=== PATIENT | male | born 1980 | race Caucasian/White ===

== ENCOUNTER → 2016-08-23 | Outpatient (REF) | payer OTHER ==
[~2016-08-23] MED LIST: ASPI325T PO; BREO1INH INH; COUM1TAB17 PO; COUM7.5T PO; LOVE0.8I SC; LOVE1INJ SC
[2016-08-23 11:08] LABS: MEAN CORPUSCULAR HEMOGLOBIN 31.6 pg (27.0-33.0); MEAN CORPUSCULAR HGB CONC 34.2 g/dl (32.0-36.5); MEAN CORPUSCULAR VOLUME 92.5 fl (80.0-96.0); RED CELL DISTRIBUTION WIDTH 12.6 % (11.5-14.5); WHITE BLOOD COUNT 5.8 K/mm3 (4.0-10.0)
[2016-08-23 11:45] LABS: ALBUMIN 4.3 GM/DL (3.2-5.2); ALKALINE PHOSPHATASE 63 U/L (45-117); ALT/SGPT 165 U/L (12-78); ANION GAP 9 MEQ/L (8-16); AST/SGOT 95 U/L (15-37); BILIRUBIN,TOTAL 0.6 MG/DL (0.2-1.0); BLOOD UREA NITROGEN 8 MG/DL (7-18); CALCIUM LEVEL 9.1 MG/DL (8.5-10.1); CARBON DIOXIDE LEVEL 28 MEQ/L (21-32); CHLORIDE LEVEL 102 MEQ/L (98-107); CREATININE FOR GFR 1.02 MG/DL (0.70-1.30); GLOMERULAR FILTRATION RATE > 60.0 (>60); GLUCOSE, FASTING 91 MG/DL (70-105); POTASSIUM SERUM 4.5 MEQ/L (3.5-5.1); SODIUM LEVEL 139 MEQ/L (136-145); TOTAL PROTEIN 8.6 GM/DL (6.4-8.2)
== END ==
LOC: M SFHCPLAZ 08:28
PROVIDERS: ATTEND Nurse Practitioner Adult Health
DX: R74.8 Abnormal levels of other serum enzymes (principal); Z79.899 Other long term (current) drug therapy

== ENCOUNTER → 2016-09-14 | Outpatient (REF) | payer OTHER ==
[2016-09-14 10:11] LABS: INR 6.91
== END ==
LOC: M SFHCPLAZ 08:13
PROVIDERS: ATTEND Nurse Practitioner Adult Health
DX: Z79.01 Long term (current) use of anticoagulants (principal)

== ENCOUNTER → 2016-10-20 | Outpatient (CLI) | payer OTHER ==
[2016-10-20 14:25] LABS: INR 4.05
== END ==
LOC: M WUC 11:22
PROVIDERS: ATTEND Nurse Practitioner Adult Health
DX: Z79.01 Long term (current) use of anticoagulants (principal); D68.51 Activated protein C resistance; I82.409 Acute embolism and thrombosis of unspecified deep veins of unspecified lower extremity

== ENCOUNTER → 2016-11-14 | Outpatient (CLI) | payer OTHER ==
[2016-11-14 20:14] LABS: INR 5.48
== END ==
LOC: M WUC 11:14
PROVIDERS: ATTEND Nurse Practitioner Adult Health
DX: I82.409 Acute embolism and thrombosis of unspecified deep veins of unspecified lower extremity (principal)

== ENCOUNTER → 2016-12-12 | Outpatient (REF) | payer OTHER ==
[2016-12-12 16:01] LABS: INR 4.67
== END ==
LOC: M SFHCPLAZ 15:47
PROVIDERS: ATTEND Nurse Practitioner Adult Health
DX: I82.409 Acute embolism and thrombosis of unspecified deep veins of unspecified lower extremity (principal)

== ENCOUNTER → 2017-04-16 | Outpatient (CLI) | payer OTHER ==
[2017-04-16 14:38] LABS: MEAN CORPUSCULAR HEMOGLOBIN 19.8 pg (27.0-33.0); MEAN CORPUSCULAR HGB CONC 28.7 g/dl (32.0-36.5)
[2017-04-16 14:49] LABS: MEAN CORPUSCULAR VOLUME 69.2 fl (80.0-96.0); RED CELL DISTRIBUTION WIDTH 23.3 % (11.5-14.5)
[2017-04-16 15:05] LABS: ALBUMIN 3.7 GM/DL (3.2-5.2); ALKALINE PHOSPHATASE 47 U/L (45-117); ALT/SGPT 70 U/L (12-78); ANION GAP 9 MEQ/L (8-16); AST/SGOT 57 U/L (15-37); BILIRUBIN,TOTAL 0.5 MG/DL (0.2-1.0); BLOOD UREA NITROGEN 8 MG/DL (7-18); CALCIUM LEVEL 8.6 MG/DL (8.5-10.1); CARBON DIOXIDE LEVEL 27 MEQ/L (21-32); CHLORIDE LEVEL 102 MEQ/L (98-107); CHOLESTEROL LEVEL 176 MG/DL (<200); CREATININE FOR GFR 0.83 MG/DL (0.70-1.30); GLOMERULAR FILTRATION RATE > 60.0 (>60); GLUCOSE, FASTING 80 MG/DL (70-105); POTASSIUM SERUM 4.5 MEQ/L (3.5-5.1); SODIUM LEVEL 138 MEQ/L (136-145); TOTAL PROTEIN 7.8 GM/DL (6.4-8.2); TRIGLYCERIDES LEVEL 42 MG/DL (<150)
== END ==
LOC: M WUC 09:27
PROVIDERS: ATTEND Nurse Practitioner Adult Health
DX: K76.0 Fatty (change of) liver, not elsewhere classified (principal); I82.409 Acute embolism and thrombosis of unspecified deep veins of unspecified lower extremity; K21.0 Gastro-esophageal reflux disease with esophagitis

== ENCOUNTER → 2017-05-10 | Outpatient (REF) | payer OTHER ==
[2017-05-10 11:58] LABS: MEAN CORPUSCULAR HGB CONC 29.3 g/dl (32.0-36.5); PLATELET COUNT, AUTOMATED 302 10^3/uL (150-450); WHITE BLOOD COUNT 4.5 10^3/uL (4.0-10.0)
[2017-05-10 12:00] LABS: MEAN CORPUSCULAR VOLUME 71.8 fl (80.0-96.0); RED CELL DISTRIBUTION WIDTH 27.2 % (11.5-14.5)
[2017-05-10 13:40] LABS: INR 7.66
== END ==
LOC: M SFHCPLAZ 07:23
PROVIDERS: ATTEND Nurse Practitioner Adult Health
DX: Z51.81 Encounter for therapeutic drug level monitoring (principal); Z79.01 Long term (current) use of anticoagulants

== ENCOUNTER 2017-06-25 09:21 | Emergency (ER) | payer OTHER ==
[~2017-06-25] VITALS: Ht 180.3 cm; Wt 93.2 kg
[2017-06-25] MEDS ORDERED: VENTAER IN (09:47)
[2017-06-25] MEDS ORDERED: FERR32TA PO (09:47)
[2017-06-25] MEDS ORDERED: OMEP40CA2 PO (09:47)
[2017-06-25] MEDS ORDERED: NORCO, ANEXSIA 5/325MG TABLET (HYDROcodone/ACETAMINOPHEN) PO ONE (11:00)
[2017-06-25] MEDS ORDERED: ACETAMINOPHEN 325 MG TAB As Ordered ONE (11:19)
[2017-06-25 11:25] LABS: BASO % 0.7 % (0.0-1.0); EOS # 0.1 10^3/uL (0.0-0.50); EOS % 0.8 % (0.0-3.0); IMMATURE GRANULOCYTE % 0.2 % (0-0); LYMPH # 1.4 10^3/uL (1.5-4.5); LYMPH % 24.2 % (24.0-44.0); MEAN CORPUSCULAR HGB CONC 31.1 g/dl (32.0-36.5); MEAN CORPUSCULAR VOLUME 80.2 fl (80.0-96.0); MONO # 0.7 10^3/uL (0.0-0.8); MONO % 12.5 % (0.0-5.0); NEUTROPHILS # 3.7 10^3/uL (1.8-7.7); NEUTROPHILS % 61.6 % (36.0-66.0); PLATELET COUNT, AUTOMATED 230 10^3/uL (150-450); RED CELL DISTRIBUTION WIDTH 22.6 % (11.5-14.5); WHITE BLOOD COUNT 5.9 10^3/uL (4.0-10.0)
[2017-06-25] MEDS ORDERED: ACETAMINOPHEN 325 MG TAB PO ONE (11:30)
[2017-06-25 11:50] LABS: ANION GAP 8 MEQ/L (8-16); BLOOD UREA NITROGEN 7 MG/DL (7-18); CALCIUM LEVEL 9.5 MG/DL (8.5-10.1); CARBON DIOXIDE LEVEL 30 MEQ/L (21-32); CHLORIDE LEVEL 99 MEQ/L (98-107); GLOMERULAR FILTRATION RATE > 60.0 (>60); GLUCOSE, FASTING 92 MG/DL (70-105); POTASSIUM SERUM 4.2 MEQ/L (3.5-5.1); SODIUM LEVEL 137 MEQ/L (136-145)
[2017-06-25 11:56] LABS: INR 1.34
--- NOTE | 2017-06-25 12:12 | REP ---
Right lower extremity Doppler venous ultrasound: 06/25/2017. Comparison 10/29/2014. Clinical history: Prior history of DVT. Pain for 3 days. No injury. Right lower calf pain. On anticoagulation. The deep venous system from the groin to the proximal calf was studied in the right lower extremity, compression ultrasound techniques, duplex Doppler interrogation, color imaging and raines-scale scanning reviewed. There is no evidence of DVT in the common femoral and superficial femoral vein of the thigh and groin. However, in the popliteal vein, there is again noted to be some nonocclusive clot as seen in the 2014 exam extending into the tibioperoneal trunk. There is a occlusive clot present. Impression: 1. This is positive ultrasound with evidence for DVT in the right popliteal vein which is nonocclusive, similar to the previous study in 2014. There is now nonocclusive thrombus extending into the tibioperoneal trunk where it is occlusive. This likely represents acute on chronic DVT. Signed by Sd Cabrera MD 06/26/2017 07:19 P
[2017-06-25] MEDS ORDERED: ENOXAPARIN 100MG/1ML SYRINGE (J1650) SC ONE (12:15)
[2017-06-25 12:19] VITALS: BP 147/88
[2017-06-25] MEDS ORDERED: LOVE0.8I SC (12:32)
[2017-06-25] MEDS ORDERED: PERC5TAB12 PO (12:32)
== END 2017-06-25 12:40 | disposition home or self-care (01) ==
LOC: M ED 09:21
DX: I80.221 Phlebitis and thrombophlebitis of right popliteal vein (principal); I80.231 Phlebitis and thrombophlebitis of right tibial vein; D68.51 Activated protein C resistance; Z86.718 Personal history of other venous thrombosis and embolism; J45.909 Unspecified asthma, uncomplicated; Z79.01 Long term (current) use of anticoagulants; Z79.899 Other long term (current) drug therapy
CPT/HCPCS: 36415; 80048; 85025; 85610; 85730; 93971; 96372; 99284; J1650

== ENCOUNTER → 2017-09-26 | Outpatient (CLI) | payer OTHER ==
[2017-09-26 11:33] LABS: INR 2.63; PROTHROMBIN TIME 29.2 SECONDS (12.4-14.5)
== END ==
LOC: M WUC 09:31
DX: I82.409 Acute embolism and thrombosis of unspecified deep veins of unspecified lower extremity (principal); Z79.01 Long term (current) use of anticoagulants
CPT/HCPCS: 85610

== ENCOUNTER → 2018-01-29 | Outpatient (CLI) | payer OTHER ==
[2018-01-29 13:11] LABS: HEMATOCRIT 46.2 % (42.0-52.0); HEMOGLOBIN 15.5 g/dl (13.5-17.5); MEAN CORPUSCULAR HEMOGLOBIN 32.1 pg (27.0-33.0); MEAN CORPUSCULAR HGB CONC 33.5 g/dl (32.0-36.5); MEAN CORPUSCULAR VOLUME 95.7 fl (80.0-96.0); PLATELET COUNT, AUTOMATED 171 10^3/uL (150-450); RED BLOOD COUNT 4.83 10^6/uL (4.30-6.10); RED CELL DISTRIBUTION WIDTH 14.2 % (11.5-14.5); WHITE BLOOD COUNT 4.3 10^3/uL (4.0-10.0)
[2018-01-29 13:28] LABS: ALBUMIN 4.2 GM/DL (3.2-5.2); ALBUMIN/GLOBULIN RATIO 1.11 (1.00-1.93); ALKALINE PHOSPHATASE 59 U/L (45-117); ALT/SGPT 155 U/L (12-78); ANION GAP 7 MEQ/L (8-16); AST/SGOT 104 U/L (7-37); BILIRUBIN,TOTAL 0.3 MG/DL (0.2-1.0); BLOOD UREA NITROGEN 8 MG/DL (7-18); CALCIUM LEVEL 9.1 MG/DL (8.5-10.1); CARBON DIOXIDE LEVEL 30 MEQ/L (21-32); CHLORIDE LEVEL 105 MEQ/L (98-107); CREATININE FOR GFR 0.96 MG/DL (0.70-1.30); GLOMERULAR FILTRATION RATE > 60.0 (>60); GLUCOSE, FASTING 96 MG/DL (70-100); POTASSIUM SERUM 4.4 MEQ/L (3.5-5.1); SODIUM LEVEL 142 MEQ/L (136-145)
== END ==
LOC: M WUC 09:05
DX: R74.8 Abnormal levels of other serum enzymes (principal); D64.9 Anemia, unspecified
CPT/HCPCS: 80053

== ENCOUNTER → 2018-02-20 | Outpatient (CLI) | payer OTHER | LOC: M RAD 08:15 | DX: I82.412 Acute embolism and thrombosis of left femoral vein (principal) | CPT/HCPCS: 93971 ==

== ENCOUNTER 2018-09-23 08:53 | Inpatient (IN) | payer MEDICAID, OTHER ==
[~2018-09-23] VITALS: Ht 180.3 cm; Wt 96.8 kg
[~2018-09-23 08:53] MED LIST changes: +FERR32TA PO; +OMEP40CA2 PO; +PERC5TAB12 PO; +VENTAER INH
[2018-09-23] MEDS ORDERED: FOLIC ACID 1 MG TAB PO SCH (09:00)
[2018-09-23] MEDS ORDERED: THIAMINE 100 MG TAB PO SCH (09:00)
[2018-09-23] MEDS ORDERED: MULTIVITAMINS/MINERALS THERAP 1 TAB PO SCH (09:00)
[2018-09-23] MEDS: MORPHINE 4 MG/ML 1ML VIAL/SYRINGE (J2270) IV PRN ×5 (09:24→22:11)
[2018-09-23 09:26] LABS: BASO # 0.1 10^3/uL (0.0-0.2); BASO % 0.8 % (0.0-1.0); EOS % 0.6 % (0.0-3.0); HEMATOCRIT 35.9 % (42.0-52.0); HEMOGLOBIN 12.1 g/dl (13.5-17.5); LYMPH # 1.4 10^3/uL (1.5-4.5); LYMPH % 21.9 % (24.0-44.0); MEAN CORPUSCULAR HEMOGLOBIN 28.9 pg (27.0-33.0); MEAN CORPUSCULAR HGB CONC 33.7 g/dl (32.0-36.5); MEAN CORPUSCULAR VOLUME 85.9 fl (80.0-96.0); MONO # 0.9 10^3/uL (0.0-0.8); MONO % 14.8 % (0.0-5.0); NEUTROPHILS # 3.9 10^3/uL (1.8-7.7); NEUTROPHILS % 61.6 % (36.0-66.0); PLATELET COUNT, AUTOMATED 172 10^3/uL (150-450); RED BLOOD COUNT 4.18 10^6/uL (4.30-6.10); WHITE BLOOD COUNT 6.3 10^3/uL (4.0-10.0)
[2018-09-23] MEDS ORDERED: ONDANSETRON 4MG/2ML VIAL (J2405) IV ONE (09:30)
[2018-09-23 09:45] LABS: ALBUMIN 3.9 GM/DL (3.2-5.2); ALT/SGPT 181 U/L (12-78); BILIRUBIN,DIRECT 0.3 MG/DL (0.0-0.2); BILIRUBIN,TOTAL 0.6 MG/DL (0.2-1.0); BLOOD UREA NITROGEN 6 MG/DL (7-18); CALCIUM LEVEL 8.9 MG/DL (8.5-10.1); CARBON DIOXIDE LEVEL 24 MEQ/L (21-32); CHLORIDE LEVEL 101 MEQ/L (98-107); CREATININE FOR GFR 0.92 MG/DL (0.70-1.30); GLOMERULAR FILTRATION RATE > 60.0 (>60); GLUCOSE, FASTING 96 MG/DL (70-100); LIPASE 193 U/L (73-393); POTASSIUM SERUM 3.8 MEQ/L (3.5-5.1); SODIUM LEVEL 136 MEQ/L (136-145); TOTAL PROTEIN 8.6 GM/DL (6.4-8.2)
[2018-09-23 09:59] LABS: INR 7.74
[2018-09-23] MEDS ORDERED: ISOVUE-370 76% 100ML VIAL (Q9967) As Ordered ONE (09:59)
[2018-09-23 10:00] LABS: PARTIAL THROMBOPLASTIN TIME 102.1 SECONDS (25.4-37.6)
[2018-09-23 10:01] LABS: PROTHROMBIN TIME 67.5 SECONDS (12.1-14.4)
--- NOTE | 2018-09-23 10:13 | REP ---
Left hip: Two views. History: History of DVT. Findings: AP and frog-leg views of the left hip demonstrate an intact left radha pelvis. Proximal femur is intact. No fracture or subluxation is seen. No erosive changes seen. Impression: Negative left hip radiographs. Electronically Signed by Kailash Jeffrey MD 09/23/2018 12:47 P
--- NOTE | 2018-09-23 10:14 | REP ---
Pelvis: Single AP view. History: History of DVT. Findings: Bony pelvic ring is intact. Mild clothing artifact is seen. Hip joint spaces are preserved. Femoral heads are smooth and rounded. SI joints and sacrum are unremarkable. Impression: Negative AP pelvis view. Electronically Signed by Kailash Jeffrey MD 09/23/2018 12:47 P
--- NOTE | 2018-09-23 10:14 | REP ---
AP chest x-ray: Single view: History: History of DVT. Findings: EKG monitoring electrodes are seen. There is a zone of linear density in the left midlung zone consistent with fibrosis or atelectasis. Lung overton are otherwise clear. Heart size is normal. Mediastinum is not widened. No significant bony abnormality. Impression: Linear plate-like atelectasis versus fibrosis left mid lung zone. Otherwise negative. Electronically Signed by Kailash Jeffrey MD 09/23/2018 12:47 P
--- NOTE | 2018-09-23 10:31 | REP ---
Left lower extremity duplex venous ultrasound: History: Pain. Known prior left lower extremity nonocclusive DVT. Previous findings consistent with chronic DVT February 20, 2018, and June 25, 2017. Findings: On today's examination, there is no evidence of acute deep venous thrombosis. There is some echogenic mural thickening and lack of complete compressibility in the left femoral vein and popliteal vein consistent with chronic DVT. This is unchanged from prior studies. Impression: Changes consistent with chronic venous thrombosis left femoral vein and left popliteal vein, unchanged from prior study. No evidence of acute venous thrombosis in the left lower extremity. Electronically Signed by Kailash Jeffrey MD 09/23/2018 12:48 P
--- NOTE | 2018-09-23 10:48 | REP ---
CT abdomen and pelvis with IV contrast, without bowel contrast: Comparison is the chest CT dated 08/19/2015. There is no retroperitoneal or intraperitoneal hematoma/hemorrhage. The visualized lung overton are unremarkable. There is are chronic grade II compression deformities of the T8 and T9 vertebral bodies, unchanged from 08/19/2015. The hepatic parenchyma is diffusely less dense than the spleen compatible with hepato steatosis. There are no hepatic masses. The gallbladder, pancreas and spleen are unremarkable. The The adrenals and kidneys are unremarkable. There is no perisplenic repair adrenal hematoma. The abdominal aorta is unremarkable. The bowel and mesentery are unremarkable. Pelvis: The appendix is unremarkable. There is no free fluid. The bladder is unremarkable. There is no adenopathy or mass. The pelvic bowel loops are unremarkable. Impression: There is no retroperitoneal hematoma. There is no intraperitoneal hematoma or free fluid. Hepato steatosis. Chronic grade II compression deformities of the T8 and T9 vertebral bodies. There are Electronically Signed by Ben Higuera MD 09/23/2018 10:40 A
[2018-09-23] MEDS ORDERED: NS 1,000 ML IV ONE (11:00)
[2018-09-23] MEDS ORDERED: HYDROMORPHONE HCL 0.5 MG/ 0.5 ML SYRINGE (J1170 PER 1) IV ONE (11:00)
[2018-09-23] MEDS ORDERED: PHYTONADIONE 5 MG TAB PO ONE (11:45)
[2018-09-23] MEDS ORDERED: PROHANCE 279.3MG/ML 15ML VIAL (A9576) As Ordered ONE (12:39)
[2018-09-23] MEDS ORDERED: PROHANCE 279.3MG/ML 5ML VIAL (A9576) As Ordered ONE (12:39)
[2018-09-23] MEDS ORDERED: LORazepam 2 MG/ML VIAL (J2060) IV STA (13:04)
[2018-09-23 13:32] LABS: BASO % 0.5 % (0.0-1.0); EOS % 0.3 % (0.0-3.0); HEMATOCRIT 35.3 % (42.0-52.0); HEMOGLOBIN 11.8 g/dl (13.5-17.5); LYMPH # 1.2 10^3/uL (1.5-4.5); LYMPH % 20.2 % (24.0-44.0); MEAN CORPUSCULAR HEMOGLOBIN 28.8 pg (27.0-33.0); MEAN CORPUSCULAR HGB CONC 33.4 g/dl (32.0-36.5); MEAN CORPUSCULAR VOLUME 86.1 fl (80.0-96.0); MONO # 0.7 10^3/uL (0.0-0.8); MONO % 12.5 % (0.0-5.0); NEUTROPHILS # 3.9 10^3/uL (1.8-7.7); PLATELET COUNT, AUTOMATED 170 10^3/uL (150-450); WHITE BLOOD COUNT 5.8 10^3/uL (4.0-10.0)
--- NOTE | 2018-09-23 13:45 | REP ---
MRI STUDY OF THE LUMBAR SPINE WITHOUT AND WITH IV GADOLINIUM: HISTORY: Radicular pain left leg. Elevated INR. Patient on Coumadin. Comparison is made with today's CT study. TECHNIQUE: Sagittal and axial T1- and T2-weighted scans are acquired in the usual fashion with and without fat saturation. Sequences include spin echo, turbo spin-echo, and STIR imaging sequences. Gadolinium enhancement dose is 18 mL of intravenous ProHance. MRI FINDINGS: Lumbar vertebral body heights are preserved. Alignment is normal. Disc spaces are maintained in the lumbar spine. There is no evidence of intraspinal abnormal fluid collection. Tip of the conus medullaris is normal in position and appearance at T12. No lumbar disc herniation is seen. No abnormal gadolinium enhancement is appreciated. No fracture or collapse is noted. There is no evidence of spondylolysis or spondylolisthesis. IMPRESSION: No abnormal intraspinal hematoma or other fluid collection. Unremarkable MRI study lumbar spine without and with IV gadolinium. Note: During the process of review of the CT study done earlier this date, I feel that the left piriformis muscle is abnormally enlarged and somewhat hyperdense. Similarly, there is a mixed density, partially hyperdense, partially hypodense intramuscularly in the gluteus medius muscle; significantly enlarging this muscle belly consistent with a hematoma. The gluteus medius hematoma measures 4.5 x 10.9 x 8.0 cm in greatest diameter. The left piriformis muscle measures 3.5 cm in greatest thickness where as the right measures 2.4 cm. These findings are compatible with left piriformis and left gluteus medius intramuscular hematoma. Electronically Signed by Kailash Jeffrey MD 09/23/2018 03:18 P
[2018-09-23] MEDS: NS 1,000 ML IV SCH ×2 (14:30→19:54)
[2018-09-23] MEDS ORDERED: LORazepam 2 MG TAB PO PRN (14:30)
[2018-09-23] MEDS ORDERED: WARF-22 PO (14:45)
[2018-09-23] MEDS ORDERED: WARF-21 PO (14:45)
--- NOTE | 2018-09-23 14:59 | HPE ---
DATE OF ADMISSION: 09/23/2018 HISTORY: 37-year-old male with past medical history of asthma, recurrent deep vein thrombosis (DVT) secondary to Factor V Leiden deficiency, who presents to the emergency room with severe left gluteal pain radiating down his left leg. He denies any recent trauma or fall. The patient had a CT done which showed a left gluteal hematoma. His INR also was found to be 7.7. He is on Coumadin. The patient was given 10 mg of vitamin K for INR reversal. The patient was also noted to be withdrawing from alcohol. Apparently he drinks six cans of beer a day, was given 1 mg of Ativan. He is awake, alert and oriented times three at this time. He will be admitted for further management. PAST MEDICAL HISTORY: Asthma. Recurrent DVTs secondary to Factor V Leiden mutation. ALLERGIES: No known drug allergies. FAMILY HISTORY: Noncontributory. SOCIAL HISTORY: Patient denies tobacco use. He claims he drinks about six regular beers a day. Denies illicit drugs. HOME MEDICATIONS: - albuterol as needed - omeprazole 40 mg orally daily - warfarin 20 mg orally daily - fluticasone vilanterol one puff inhaled daily REVIEW OF SYSTEMS: Negative in all 10 major systems except what is mentioned in the history of present illness. VITALS: Blood pressure is 172/105, heart rate is 131 and regular, respiratory rate is 20, temperature 98.2, oxygen saturation is 97% on room air. Head is atraumatic, normocephalic. Neck supple, no jugular venous distention (JVD). Lungs are clear to auscultation. S1 and S2 audible, no murmurs appreciated. Abdomen soft. Positive bowel sounds. No pedal edema. Skin is intact. Neurologic examination: Patient awake, alert and oriented times three. LABS: WBC is 5.8, hemoglobin 11.8, hematocrit 35.3, platelets 170,000. Sodium 136, potassium 3.8, chloride 101, CO2 24, BUN 6, creatinine 0.92, lactic acid is 3.2, lipase 193, INR 7.74. IMPRESSION: 1. Left gluteal hematoma. 2. Coumadin toxicity. 3. Alcohol withdrawal. PLAN: Patient is to be admitted to the intensive care unit (ICU). Will start him on CIWA protocol. As far as his left gluteal hematoma is concerned, he has pulses present in his popliteal and dorsal pedal in his left leg. Surgeon Dr. Putnam will see the patient on consult in the morning. Will monitor daily INR and will give further doses of vitamin K if necessary. Right now his hemoglobin and hematocrit is stable and will monitor his CBC daily as well. Will continue his preadmission medications except for his warfarin and will continue his care in the ICU.
[2018-09-23 15:03] LABS: ALBUMIN 3.8 GM/DL (3.2-5.2); ALT/SGPT 182 U/L (12-78); BILIRUBIN,TOTAL 0.6 MG/DL (0.2-1.0); BLOOD UREA NITROGEN 5 MG/DL (7-18); CALCIUM LEVEL 8.5 MG/DL (8.5-10.1); CARBON DIOXIDE LEVEL 22 MEQ/L (21-32); CHLORIDE LEVEL 102 MEQ/L (98-107); CREATININE FOR GFR 0.89 MG/DL (0.70-1.30); GLOMERULAR FILTRATION RATE > 60.0 (>60); GLUCOSE, FASTING 96 MG/DL (70-100); SODIUM LEVEL 137 MEQ/L (136-145); TOTAL PROTEIN 8.1 GM/DL (6.4-8.2)
[2018-09-23 16:47] VITALS: BP 180/105
[2018-09-23 16:54] VITALS: BP 180/105
[2018-09-23] MEDS: tiZANidine 4 MG TAB PO SCH ×2 (17:30→20:52)
[2018-09-23] MEDS ORDERED: ALBUTEROL 90 MCG/ACT 8GM HFA INHALER INH PRN (17:45)
[2018-09-23 18:06] VITALS: BP 176/105
[2018-09-23 20:00] VITALS: BP 127/67
[2018-09-23] MEDS: THIAMINE 100 MG TAB PO SCH (20:52)
[2018-09-23 21:00] VITALS: BP 132/74
[2018-09-23 22:00] VITALS: BP 133/75
[2018-09-24] VITALS (11 sets, daily range): BP systolic 124–170; BP diastolic 58–155
[2018-09-24 02:42] LABS: HEMATOCRIT 30.4 % (42.0-52.0); MEAN CORPUSCULAR HEMOGLOBIN 28.1 pg (27.0-33.0); MEAN CORPUSCULAR HGB CONC 32.2 g/dl (32.0-36.5); MEAN CORPUSCULAR VOLUME 87.1 fl (80.0-96.0); PLATELET COUNT, AUTOMATED 123 10^3/uL (150-450); RED BLOOD COUNT 3.49 10^6/uL (4.30-6.10)
[2018-09-24] MEDS: MORPHINE 4 MG/ML 1ML VIAL/SYRINGE (J2270) IV PRN ×3 (02:54→09:06)
[2018-09-24 02:59] LABS: HEMOGLOBIN 9.8 g/dl (13.5-17.5)
[2018-09-24 03:01] LABS: PROTHROMBIN TIME 23.1 SECONDS (12.1-14.4)
[2018-09-24] MEDS: NS 1,000 ML IV SCH ×3 (03:30→22:30)
[2018-09-24 08:58] LABS: BASO % 0.6 % (0.0-1.0); EOS # 0.1 10^3/uL (0.0-0.50); EOS % 1.1 % (0.0-3.0); HEMATOCRIT 31.2 % (42.0-52.0); HEMOGLOBIN 10.4 g/dl (13.5-17.5); LYMPH # 0.9 10^3/uL (1.5-4.5); LYMPH % 17.1 % (24.0-44.0); MEAN CORPUSCULAR HEMOGLOBIN 28.9 pg (27.0-33.0); MEAN CORPUSCULAR HGB CONC 33.3 g/dl (32.0-36.5); MEAN CORPUSCULAR VOLUME 86.7 fl (80.0-96.0); MONO # 0.8 10^3/uL (0.0-0.8); MONO % 14.5 % (0.0-5.0); NEUTROPHILS # 3.6 10^3/uL (1.8-7.7); NEUTROPHILS % 66.1 % (36.0-66.0); PLATELET COUNT, AUTOMATED 130 10^3/uL (150-450); WHITE BLOOD COUNT 5.4 10^3/uL (4.0-10.0)
[2018-09-24] MEDS: tiZANidine 4 MG TAB PO SCH ×3 (09:05→21:00)
[2018-09-24] MEDS: THIAMINE 100 MG TAB PO SCH ×2 (09:05→21:00)
[2018-09-24] MEDS: OMEPRAZOLE 20 MG CAP PO SCH (09:05)
[2018-09-24] MEDS: FOLIC ACID 1 MG TAB PO SCH (09:05)
[2018-09-24] MEDS: MULTIVITAMINS/MINERALS THERAP 1 TAB PO SCH (09:05)
[2018-09-24 09:08] LABS: INR 1.65; PROTHROMBIN TIME 19.8 SECONDS (12.1-14.4)
[2018-09-24 09:09] LABS: PARTIAL THROMBOPLASTIN TIME 45.8 SECONDS (25.4-37.6)
[2018-09-24] MEDS: ACETAMINOPHEN TAB 650MG DOSE (2X325MG) PO PRN (09:56)
[2018-09-24 11:39] LABS: ALBUMIN 3.5 GM/DL (3.2-5.2); ALT/SGPT 132 U/L (12-78); BILIRUBIN,TOTAL 1.8 MG/DL (0.2-1.0); BLOOD UREA NITROGEN 6 MG/DL (7-18); C REACTIVE PROTEIN QUANTITATIV 6.47 MG/DL (0.00-0.30); CALCIUM LEVEL 8.4 MG/DL (8.5-10.1); CARBON DIOXIDE LEVEL 24 MEQ/L (21-32); CHLORIDE LEVEL 99 MEQ/L (98-107); CREATININE FOR GFR 0.76 MG/DL (0.70-1.30); GLOMERULAR FILTRATION RATE > 60.0 (>60); GLUCOSE, FASTING 101 MG/DL (70-100); POTASSIUM SERUM 3.9 MEQ/L (3.5-5.1); SODIUM LEVEL 135 MEQ/L (136-145); TOTAL PROTEIN 7.5 GM/DL (6.4-8.2)
--- NOTE | 2018-09-24 11:54 | CR.PDOC ---
General Date of Consultation: Sep 24, 2018 Referring Provider: ANUP DONNELLY MD Consultation REASON FOR CONSULTATION/CHIEF COMPLAINT: DVT with contraindication for anticoagulation-requests for IVC filter placement HISTORY OF PRESENT ILLNESS:, Mr. Rodriguez is a 37-year-old gentleman with factor V Laitinen history of left lower extremity DVT, who was on Coumadin and developed a supratherapeutic INR due to lack of follow-up for INR checks and alcoholism. He has an intramuscular gluteal bleed on the left, and therefore at this moment anticoagulation is contraindicated. His INR has been reversed with vitamin K. His primary team has requested that we place an IVC filter while he is off anticoagulation. Risks, benefits and alternatives were explained. Will proceed today. ALLERGIES: Please see below. HOME MEDICATIONS: Please see below. PAST MEDICAL HISTORY: 1. Factor V Leiden 2. DVT. 3. Alcohol abuse PAST SURGICAL HISTORY: Jaw surgery distant past. No trouble with anesthesia with that surgery. FAMILY HISTORY: Positive for clotting disorder SOCIAL HISTORY: Tobacco use: denies ETOH: 6-10 beers/day Illicit drug use: denies IV drug use: denies REVIEW OF SYSTEMS: CONSTITUTIONAL: Positive fatigue. HEENT:. No acute vision changes or dysphasia. CARDIOVASCULAR:. No chest pain or palpitations. RESPIRATORY:. Positive shortness of breath on exertion. GENITOURINARY:. No dysuria. MUSCULOSKELETAL:, Positive swelling. The extremities. GASTROINTESTINAL:. No nausea, vomiting, diarrhea, constipation. SKIN:, No rashes. NEUROLOGICAL:. No strokes or seizures or headaches. PSYCHIATRIC: Positive alcohol abuse, positive depression, positive anxiety. ENDOCRINE:. Denies polydipsia or polyuria. HEMATOLOGIC/LYMPHATIC:. Positive easy bruising. ALLERGIC/IMMUNOLOGIC:. Denies. PHYSICAL EXAMINATION: VITAL SIGNS: Please see below. GENERAL APPEARANCE: Well-developed, well-nourished, no acute distress. HEENT:, Vision grossly intact. Normocephalic, TMI. RESPIRATORY: Clear to auscultation. CARDIOVASCULAR:. Regular rate and rhythm. ABDOMEN:. Soft, nontender, nondistended. EXTREMITIES: Pain over left gluteal muscle. Positive edema, left lower extremity. Positive pulses bilateral lower extremities. NEUROLOGICAL:. Alert and oriented 3, no focal deficits noted. PSYCHIATRIC:. Pleasant and cooperative. LABORATORY DATA: Please see below. ASSESSMENT/PLAN: 37-year-old gentleman with hypercoagulable state, left lower extremity DVT, now off anticoagulation due to spontaneous left gluteal bleed due to supratherapeutic INR 1. Plan for IVC filter placement today 2. Resume anticoagulation when safe from a bleeding standpoint. 3. Elevate left lower extremity above the level of the heart when at rest to diminish swelling. Vital Signs/I&O Vital Signs Date Time Temp Pulse Resp B/P (MAP) Pulse Ox O2 Delivery O2 Flow Rate FiO2 09/24/18 09:06 20 09/24/18 08:00 101.3 98 163/86 (111) 98 09/23/18 18:06 1.0 09/23/18 16:05 Nasal Cannula I&O- Last 24 Hours up to 6 AM 09/24/18 06:00 Intake Total 480 ml Output Total 1500 ml Balance -1020 ml Laboratory Data Labs 24H Laboratory Tests 2 09/23/18 13:10: Immature Granulocyte % (Auto) 0.5, White Blood Count 5.8, Red Blood Count 4.10L, Hemoglobin 11.8L, Hematocrit 35.3L, Mean Corpuscular Volume 86.1, Mean Corpuscular Hemoglobin 28.8, Mean Corpuscular Hemoglobin Concent 33.4, Red Cell Distribution Width 16.3H, Platelet Count 170, Neutrophils (%) (Auto) 66.0, Lymphocytes (%) (Auto) 20.2L, Monocytes (%) (Auto) 12.5H, Eosinophils (%) (Auto) 0.3, Basophils (%) (Auto) 0.5, Neutrophils # (Auto) 3.9, Lymphocytes # (Auto) 1.2L, Monocytes # (Auto) 0.7, Eosinophils # (Auto) 0.0, Basophils # (Auto) 0.0, Nucleated Red Blood Cells % (auto) 0.0 09/23/18 14:16: Anion Gap 13, Glomerular Filtration Rate > 60.0, Blood Urea Nitrogen 5L, Creatinine 0.89, Sodium Level 137, Potassium Level 4.0, Chloride Level 102, Carbon Dioxide Level 22, Calcium Level 8.5, Aspartate Amino Transf (AST/SGOT) 147H, Alanine Aminotransferase (ALT/SGPT) 182H, Alkaline Phosphatase 72, Total Bilirubin 0.6, Total Protein 8.1, Albumin 3.8, Albumin/Globulin Ratio 0.88L 09/23/18 14:47: Lactic Acid Followup at 4 Hours 1.1 09/24/18 02:30: Nucleated Red Blood Cells % (auto) 0.0, Prothrombin Time 23.1H, Prothromb Time International Ratio 2.00 09/24/18 08:38: Immature Granulocyte % (Auto) 0.6, White Blood Count 5.4, Red Blood Count 3.60L, Hemoglobin 10.4L, Hematocrit 31.2L, Mean Corpuscular Volume 86.7, Mean Corpuscular Hemoglobin 28.9, Mean Corpuscular Hemoglobin Concent 33.3, Red Cell Distribution Width 16.0H, Platelet Count 130L, Neutrophils (%) (Auto) 66.1H, Lym phocytes (%) (Auto) 17.1L, Monocytes (%) (Auto) 14.5H, Eosinophils (%) (Auto) 1.1, Basophils (%) (Auto) 0.6, Neutrophils # (Auto) 3.6, Lymphocytes # (Auto) 0.9L, Monocytes # (Auto) 0.8, Eosinophils # (Auto) 0.1, Basophils # (Auto) 0.0, Nucleated Red Blood Cells % (auto) 0.0, Prothrombin Time 19.8H, Prothromb Time International Ratio 1.65, Activated Partial Thromboplast Time 45.8H, Anion Gap 12, Glomerular Filtration Rate > 60.0, Blood Urea Nitrogen 6L, Creatinine 0.76, Sodium Level 135L, Potassium Level 3.9, Chloride Level 99, Carbon Dioxide Level 24, Calcium Level 8.4L, Aspartate Amino Transf (AST/SGOT) 124H, Alanine Aminotransferase (ALT/SGPT) 132H, Alkaline Phosphatase 67, Total Bilirubin 1.8#H, Total Protein 7.5, Albumin 3.5, C-Reactive Protein, Quantitative 6.47H, Albumin/Globulin Ratio 0.88L CBC/BMP Laboratory Tests 09/23/18 13:10 Red Blood Count 4.10 L, Mean Corpuscular Volume 86.1, Mean Corpuscular Hemoglobin 28.8, Mean Corpuscular Hemoglobin Concent 33.4, Red Cell Distribution Width 16.3 H, Neutrophils (%) (Auto) 66.0, Lymphocytes (%) (Auto) 20.2 L, [place] cytes (%) (Auto) 12.5 H, Eosinophils (%) (Auto) 0.3, Basophils (%) (Auto) 0.5, Neutrophils # (Auto) 3.9, Lymphocytes # (Auto) 1.2 L, Monocytes # (Auto) 0.7, Eosinophils # (Auto) 0.0, Basophils # (Auto) 0.0 09/23/18 14:16 Calcium Level 8.5, Aspartate Amino Transf (AST/SGOT) 147 H, Alanine Aminotransferase (ALT/SGPT) 182 H, Alkaline Phosphatase 72, Total Bilirubin 0.6, Total Protein 8.1, Albumin 3.8 09/24/18 02:30 Red Blood Count 3.49 L, Mean Corpuscular Volume 87.1, Mean Corpuscular Hemoglobin 28.1, Mean Corpuscular Hemoglobin Concent 32.2, Red Cell Distribution Width 16.1 H 09/24/18 08:38 Red Blood Count 3.60 L, Mean Corpuscular Volume 86.7, Mean Corpuscular Hemoglobin 28.9, Mean Corpuscular Hemoglobin Concent 33.3, Red Cell Distribution Width 16.0 H, Neutrophils (%) (Auto) 66.1 H, Lymphocytes (%) (Auto) 17.1 L, Monocytes (%) (Auto) 14.5 H, Eosinophils (%) (Auto) 1.1, Basophils (%) (Auto) 0.6, Neutrophils # (Auto) 3.6, Lymphocytes # (Auto) 0.9 L, Monocytes # (Auto) 0.8, Eosinophils # (Auto) 0.1, Basophils # (Auto) 0.0, Calcium Level 8.4 L, Aspartate Amino Transf (AST/SGOT) 124 H, Alanine Aminotransferase (ALT/SGPT) 132 H, Alkaline Phosphatase 67, Total Bilirubin 1.8 #H, Total Protein 7.5, Albumin 3.5 Microbiology Microbiology 09/24/18 Blood Culture, Received Pending 09/24/18 Blood Culture, Received Pending Allergies Coded Allergies: No Known Allergies (Unverified , 10/29/14) Home Medications Scheduled Fluticasone/Vilanterol (Breo Ellipta 100-25 Mcg/INH) 1 Inh Inh, 1 PUFF INH DAILY, (Reported) Omeprazole (Omeprazole) 40 Mg Cap, 40 MG PO DAILY, (Reported) Warfarin Sod (Warfarin Sodium) 10 Mg Tab, 10 MG PO 3XW, (Reported) QAM: MON,WED,FRI Warfarin Sod (Warfarin Sodium) 7.5 Mg Tab, 7.5 MG PO 4XWK, (Reported) QAM: ,,SUN,SUN Scheduled PRN Albuterol Sulfate (Ventolin Hfa) 108 Mcg/Act Aer, 2 PUFFS INH Q4H PRN for S HORTNESS OF BREATH, (Reported) KARINA STEARNS MD Sep 24, 2018 11:53
[2018-09-24] MEDS: PIPERACILLIN/TAZOBACTAM SOD 3.375 GM in D5W MINI-BAG PLUS 50 ML IV SCH ×2 (13:11→18:48)
[2018-09-24] MEDS: OXAZEPAM 10 MG CAP PO SCH ×2 (13:11→16:50)
[2018-09-24] MEDS ORDERED: LIDOCAINE 2% MDV 20 ML VIAL As Ordered ONE (14:18)
[2018-09-24] MEDS ORDERED: ISOVUE-300 61% 50ML VIAL (Q9967) As Ordered ONE (14:18)
[2018-09-24] MEDS ORDERED: fentaNYL 100 MCG/2 ML INJECTION (J3010) As Ordered ONE (14:25)
[2018-09-24] MEDS ORDERED: MIDAZOLAM INJ 2 MG/2 ML VIAL (J2250) As Ordered ONE (14:25)
--- NOTE | 2018-09-24 15:27 | ROOPDOC ---
[facility] Report Of Operation Report of Operation DATE OF PROCEDURE: 09/24/18 PREPROCEDURE DIAGNOSES: Factor V Leiden, history of left lower extremity DVT, contraindication to anticoagulation. POSTPROCEDURE DIAGNOSES: Same. PROCEDURE: 1. Ultrasound-guided access right basilic vein 2. Vena cava gram 3. Placement of an Option IVC filter infrarenal 4. Completion vena cava gram SURGEON: Karina Andrew MD ANESTHESIA: 3 mL 2% lidocaine. INDICATION FOR PROCEDURE: Mr. Rodriguez is a 37-year-old gentleman with factor V Laitinen history of left lower extremity DVT. He was taking Coumadin and was lost to follow-up for INR check since May. He became supratherapeutic on his INR and had a spontaneous bleed in his left gluteal muscle. This is a contraindication to ongoing anticoagulation. Therefore, until safe from a bleeding standpoint, we discussed placement of an IVC filter to protect him from pulmonary embolism due to a known left lower extremity DVT. Risks, benefits, alternatives to IVC filter placement were described to the patient and all questions were answered. Informed consent was obtained. INTERPRETATION: 1. The vena cava is widely patent. No thrombus is noted within the vena cava. The renal veins were identified and marked. 2. The IVC filter is in good placement infrarenally in the inferior vena cava. There is minimal tilt. PROCEDURE NOTE: The patient was brought to the angiographic suite in stable condition in his right upper extremity was prepped and draped in a sterile f ashion. A timeout was performed. Local anesthesia was ministered to the skin and subcutaneous disease tissue on the right upper arm and ultrasound was used to guide access to the basilic vein with a microneedle. A wire was passed through this access and a micro-sheath was placed over the wire using a Seldinger technique. A Glidewire was advanced through this access into the central system and into the inferior vena cava under fluoroscopic guidance. We then exchanged for the IVC filter sheath over the wire using a Seldinger technique. The inner cannula and wire were removed. Once the sheath was advanced into the distal IVC and sheath was flushed with saline. A vena cava gram was performed. This showed that the vena cava was patent and we identified the location of the renal veins and these were marked. An option IVC filter was advanced through the sheath until it was in good position infrarenally. We then retracted the sheath to deploy the filter without incident. Final vena cava gram showed the filter was in good position in the center of the vena cava infrarenally, and there is a very minimal tilt. We were happy with his IVC filter placement. The sheath was removed and pressure was held at the access point for 5 minutes and sterile dressings were applied. The patient tolerated the procedure well. He can resume his normal diet and activity. ESTIMATED BLOOD LOSS: Approximately 1 mL. COMPLICATIONS: None KARINA ANDREW MD Sep 24, 2018 15:27
--- NOTE | 2018-09-24 16:44 | REP ---
Right upper quadrant sonography: History: Elevated liver function studies. Comparison study: Comparison sonography May 17, 2016. Findings: Scanning through the right upper quadrant of the abdomen demonstrates a normal sized, thin-walled gallbladder without evidence of stone or polyp. Common bile duct is normal measuring 0.6 cm in greatest diameter. No focal liver lesion is seen. There is evidence of fatty infiltration of the liver. Liver size is normal. No pancreatic abnormality is observed. No right renal abnormality is seen. There is no evidence of ascites. The right kidney measures 11.2 x 6.4 x 5.3 cm. Impression: There is evidence of fatty infiltration of the liver. Otherwise negative right upper quadrant sonography. Electronically Signed by Kailash Jeffrey MD 09/24/2018 04:36 P
--- NOTE | 2018-09-24 16:46 | REP ---
Soft-tissue ultrasound left o'clock region. History: Evaluate for possible drainage. Left gluteus medius hematoma. Sonographic findings: Diffuse soft tissue edema is seen. A poorly encapsulated hypoechoic area which may be fluid content is seen superficially measuring 3.2 x 1.0 x 1.7 cm. The hematoma is poorly visualized and is much larger than this by CT. Impression: No suitable fluid collection for drainage seen. Electronically Signed by Kailash Jeffrey MD 09/24/2018 04:38 P
[2018-09-24] MEDS: oxyCODONE 5MG TAB PO PRN (16:50)
--- NOTE | 2018-09-24 18:03 | IPNPDOC ---
Text Note Date of Service The patient was seen on 09/24/18. NOTE Subjective: Patient is a 37-year-old male who presented to the hospital on 09/23/2018 with a chief complaint of gluteal pain. Patient denies having any recent trauma or falls. A CT scan was done and revealed a gluteal hematoma. Patient is on Coumadin for chronic anticoagulation due to factor V Leiden and past history of DVTs. Patient was found to have a supratherapeutic INR of 7.7. Patient was given 10 mg of vitamin K for INR reversal. Gen. surgery was consulted and gave patient 2 units of fresh frozen plasma. This morning at 2 AM, patient's INR had come down to 2.0. On repeat labs this morning patient's INR was 1.65. Patient is in severe pain in his gluteal region. Patient says this pain radiates down his left leg. Patient does not endorse any numbness or tingling down his leg and states he has feeling in his leg. Patient has some difficulty with urination so far today. He states he try to get up and go the bathroom and he started the toilet for some time and was unable to pass any urine. Patient also stated that he try to sit on the edge of the bed and use the urinal and was still unable to urinate. Patient was straight cathed at that time and had 1500 mL of urine. Patient had begun to urinate without difficulty later in the day as reported by nursing staff. Patient reports that he drinks 4-6 beers a day and has been doing this for some time. Patient was given a dose of Ativan in the emergency room for acute alcohol withdrawal. Patient says he does not believe that he is withdrawing from alcohol at this time. Review of systems General: Patient denies fevers HEENT: Patient denies headaches Cardiovascular: Patient denies chest pain Respiratory: Patient denies shortness of breath, cough GI: Patient denies abdominal pain, nausea, vomiting, diarrhea : Patient is having difficulty with urination earlier on the day however this did improve. Neurological: Patient denies numbness or tingling in extremities Extremities: Pain in left gluteal region as described above. Objective: Vitals: (see below) General: No acute distress, laying comfortably in bed. HEENT: Normocephalic, atraumatic, moist mucous membranes. Neck: No JVD or lymphadenopathy Cardiac: RRR, No murmurs Pulm: Clear to auscultation b/l. No wheezing, rhonchi Abd: NT/ND + BS Ext: Bruising over the left lateral gluteus area. There was extreme tenderness to light palpation of this area. No edema or cyanosis. Radial, posterior tibial, and dorsalis pedis pulses equal bilaterally. Labs (see below) Images: A left lower extremity Doppler ultrasound was performed on 09/23/2018 which showed changes consistent with chronic venous thrombosis in the left femoral vein and left popliteal vein which was unchanged from prior study. There is no evidence of acute DVT. A AP x-ray of the pelvis performed on 09/23/2018 was negative for fracture. X-rays of the hip performed on 09/23/2018 were negative for fracture. A chest x-ray performed on 09/23/2018 showed linear platelike atelectasis versus fibrosis in the left midlung zone. Otherwise negative. A CT of the abdomen and pelvis with IV contrast performed on 09/23/2018 showed hepatic steatosis and a hematoma in the left gluteus muscle. A lumbar MRI with and without IV gadolinium performed on 09/23/2018 did not show any spinal hematoma or other fluid collection And upper right quadrant abdominal ultrasound performed on 09/24/2018 showed h epatic steatosis and no other abnormality. Assessment/Plan 1. Left gluteal hematoma. Patient is in severe pain because of the swelling. Ultrasound was performed to evaluate for possible drainage and not show any drainable fluid collection. Patient was advised to keep the area elevated above his heart to help with swelling. Patient is also on oxycodone, Tylenol, and IV morphine for breakthrough pain. We will continue to monitor. 2. Supratherapeutic INR. At this time the patient's INR is within normal range. Due to the patient's factor V Leiden we have consulted vascular surgery for placement of IVC filter because the patient cannot be anticoagulated because of hematoma at this time. Once we're able to restart anticoagulation, we will restart him. Patient had been getting close follow-up with INR is up until the end of May and wishes lapse of insurance coverage patient is no longer able to follow. I highly encouraged the patient to try his best to follow along with outpatient INR monitoring. 3. Alcohol withdrawal. Patient is currently on the CIWA protocol. We will continue to monitor. 4. Fevers and lactic acidosis. Patient had a lactic acid level of 3.2 drawn this morning. Patient also had a fever of 101.3F. Patient was started on IV Zosyn and we will continue to monitor. 5. Elevated blood pressure. This may be secondary to patient's alcohol withdrawal. We will continue to monitor. DVT prophy: Patient had an IVC filter placed earlier today. We will restart anticoagulation therapy as soon as clinically indicated Dispo: Pending clinical improvement VS,[place], I+O VS, Fishbone, I+O Laboratory Tests 09/24/18 02:30 Red Blood Count 3.49 L, Mean Corpuscular Volume 87.1, Mean Corpuscular Hemoglobin 28.1, Mean Corpuscular Hemoglobin Concent 32.2, Red Cell Distribution Width 16.1 H 09/24/18 08:38 Red Blood Count 3.60 L, Mean Corpuscular Volume 86.7, Mean Corpuscular Hemoglobin 28.9, Mean Corpuscular Hemoglobin Concent 33.3, Red Cell Distribution Width 16.0 H, Neutrophils (%) (Auto) 66.1 H, Lymphocytes (%) (Auto) 17.1 L, Monocytes (%) (Auto) 14.5 H, Eosinophils (%) (Auto) 1.1, Basophils (%) (Auto) 0.6, Neutrophils # (Auto) 3.6, Lymphocytes # (Auto) 0.9 L, Monocytes # (Auto) 0.8, Eosinophils # (Auto) 0.1, Basophils # (Auto) 0.0, Calcium Level 8.4 L, Aspartate Amino Transf (AST/SGOT) 124 H, Alanine Aminotransferase (ALT/SGPT) 132 H, Alkaline Phosphatase 67, Total Bilirubin 1.8 #H, Total Protein 7.5, Albumin 3.5 Vital Signs Date Time Temp Pulse Resp B/P (MAP) Pulse Ox O2 Delivery O2 Flow Rate FiO2 09/24/18 17:25 99.7 90 20 155/87 (109) 92 09/23/18 18:06 1.0 09/23/18 16:05 Nasal Cannula I&O- Last 24 Hours up to 6 AM 09/24/18 06:00 Intake Total 480 ml Output Total 1500 ml Balance -1020 ml GME ATTESTATION GME ATTESTATION My faculty preceptor for this patient encounter was physically present during the encounter and was fully available. All aspects of the patient interview, examination, medical decision making process, and medical care plan development were reviewed and approved by the faculty preceptor. The faculty preceptor is aware and concurs with the plan as stated in the body of this note and will attest to such by his/her cosignature. JOHN REAL DO Sep 24, 2018 18:02
[2018-09-25] VITALS (8 sets, daily range): BP systolic 112–150; BP diastolic 56–92
[2018-09-25] MEDS: oxyCODONE 5MG TAB PO PRN ×5 (00:52→17:05)
[2018-09-25] MEDS: PIPERACILLIN/TAZOBACTAM SOD 3.375 GM in D5W MINI-BAG PLUS 50 ML IV SCH ×4 (00:52→18:26)
[2018-09-25] MEDS: OXAZEPAM 10 MG CAP PO SCH ×3 (06:26→21:07)
[2018-09-25] MEDS: NS 1,000 ML IV SCH ×3 (06:29→22:30)
--- NOTE | 2018-09-25 07:21 | IPNPDOC ---
Subjective General Date/Time Seen The patient was seen on 09/25/18 at 07:20. Subject Chief Complaint/History Patient remains hemodynamically stable. Ultrasound done yesterday did not reveal any drainable collection and the hematoma site in the left gluteal area. A IVC filter was placed yesterday. His Coumadin remains on hold. Reports still has discomfort over the left buttock area but mildly improved. No new numbness or weakness on the involved extremity. Current Medications Current Medications Current Medications Acetaminophen (Tylenol Tab) 650 mg Q8HP PRN PO PAIN / FEVER Last administered on 09/24/18at 09:56; Start 09/24/18 at 09:30 Albuterol Sulfate (Proventil, Ventolin Hfa) 2 puff Q4HP PRN INH SHORTNESS OF BREATH; Start 09/23/18 at 17:45 Folic Acid (Folic Acid) 1 mg DAILY PO Last administered on 09/23/18at 13:26; Start 09/23/18 at 09:00; Stop 09/23/18 at 14:23; Status DC Folic Acid (Folic Acid) 1 mg DAILY PO Last administered on 09/24/18at 09:05; Start 09/24/18 at 09:00 Home Med (Med Rec Complete!) ASDIRECTED XX ; Start 09/23/18 at 15:00; Stop 09/23/18 at 15:00; Status DC Lorazepam (Ativan) 1 mg STAT STAT IV Last administered on 09/23/18at 13:16; St art 09/23/18 at 13:04; Stop 09/23/18 at 13:12; Status DC Lorazepam (Ativan) 2 mg ASDIRECTED PRN PO SEE PROTOCOL; Start 09/23/18 at 14:30 Morphine Sulfate (Morphine Sulfate Inj) 2 mg Q2HP PRN IV BREAKTHROUGH PAIN Last administered on 09/24/18 09:06; Start 09/23/18 at 17:30 Morphine Sulfate (Morphine Sulfate Inj) 4 mg Q15M PRN IV MODERATE/SEVERE PAIN (PS 5-10) Last administered on 09/23/18at 10:19; Start 09/23/18 at 09:30; Stop 09/23/18 at 10:19; Status DC Multivitamins (Theragram-M) 1 tab DAILY PO Last administered on 09/23/18at 13:27; Start 09/23/18 at 09:00; Stop 09/23/18 at 14:23; Status DC Multivitamins (Theragram-M) 1 tab DAILY PO Last administered on 09/24/18 09:05; Start 09/24/18 at 09:00 Omeprazole (PriLOSEC) 40 mg DAILY PO Last administered on 09/24/18 09:05; Start 09/24/18 at 09:00 Oxazepam (Serax) 10 mg Q8H PO Last administered on 09/25/18 06:26; Start 09/24/18 at 14:00 Oxycodone HCl (Roxicodone, Oxyir) 5 mg Q4HP PRN PO PAIN Last administered on 09/25/18 06:27; Start 09/24/18 at 12:00 Piperacillin Sod/ Tazobactam Sod 3.375 gm/Dextrose 50 ml @ 50 mls/hr Q6H IV Last administered on 09/25/18 06:29; Start 09/24/18 at 13:00 Sodium Chloride 1,000 ml @ 125 mls/hr Q8H IV Last administered on 09/25/18 06:29; Start 09/23/18 at 14:30 Thiamine HCl (Thiamine HCl) 100 mg BID PO Last administered on 09/23/18 13:26; Start 09/23/18 at 09:00; Stop 09/23/18 at 14:32; Status DC Thiamine HCl (Thiamine HCl) 100 mg BID PO Last administered on 09/24/18 21:00; Start 09/23/18 at 21:00; Stop 09/25/18 at 21:01 Tizanidine HCl (Zanaflex) 4 mg TID PO Last administered on 09/24/18 21:00; Start 09/23/18 at 16:00 Allergies Coded Allergies: No Known Allergies (Unverified , 10/29/14) Objective Physical Examination Examination GENERAL APPEARANCE: Looks more comfortable today. SKIN: To perform dry. Left lateral gluteal area with wide area of ecchymosis on the involved kin. No noticeable area of fluctuance. No skin breakdown. No associated skin erythema. HEENT: Normocephalic, atraumatic. [place] palpebral conjunctiva, anicteric sclerae. Lips and mucosa appear moist. NECK: Supple, no thyromegaly. No obvious jugular venous distention. LUNGS: Clear to auscultation bilaterally. No wheezing appreciated. HEART: No chest wall abnormalities. Regular rate and rhythm with no murmurs appreciated. ABDOMEN: Abdomen is soft, nontender EXTREMITIES: Denies any numbness on the left lower extremity. Pain and discomfort on moving the left hip, flexing the knee. No discomfort with ankle rotation plantar or dorsiflexion. Chronic left lower extremity mild edema Vital Signs Vital Signs Date Time Temp Pulse Resp B/P (MAP) Pulse Ox O2 Delivery O2 Flow Rate FiO2 09/25/18 06:27 18 96 09/25/18 04:00 99.6 82 135/78 (97) 09/23/18 18:06 1.0 09/23/18 16:05 Nasal Cannula I&Os I&O- Last 24 Hours up to 6 AM 09/25/18 06:00 Intake Total 2740 ml Output Total 5400 ml Balance -2660 ml Laboratory Data Labs 24H Laboratory Tests 2 09/24/18 08:38: Immature Granulocyte % (Auto) 0.6, White Blood Count 5.4, Red Blood Count 3.60L, Hemoglobin 10.4L, Hematocrit 31.2L, Mean Corpuscular Volume 86.7, Mean Corpuscular Hemoglobin 28.9, Mean Corpuscular Hemoglobin Concent 33.3, Red Cell Distribution Width 16.0H, Platelet Count 130L, Neutrophils (%) (Auto) 66.1H, Lymphocytes (%) (Auto) 17.1L, Monocytes (%) (Auto) 14.5H, Eosinophils (%) (Auto) 1.1, Basophils (%) (Auto) 0.6, Neutrophils # (Auto) 3.6, Lymphocytes # (Auto) 0.9L, Monocytes # (Auto) 0.8, Eosinophils # (Auto) 0.1, Basophils # (Auto) 0.0, Nucleated Red Blood Cells % (auto) 0.0, Prothrombin Time 19.8H, Prothromb Time International Ratio 1.65, Activated Partial Thromboplast Time 45.8H, Anion Gap 12, Glomerular Filtration Rate > 60.0, Blood Urea Nitrogen 6L, Creatinine 0.76, Sodium Level 135L, Potassium Level 3.9, Chloride Level 99, Carbon Dioxide Level 24, Calcium Level 8.4L, Aspartate Amino Transf (AST/SGOT) 124H, Alanine Aminotransferase (ALT/SGPT) 132H, Alkaline Phosphatase 67, Total Bilirubin 1.8#H, Total Protein 7.5, Albumin 3.5, C-Reactive Protein, Quantitative 6.47H, Albumin/Globulin Ratio 0.88L 09/24/18 12:54: Lactic Acid Level 1.4 CBC/BMP Laboratory Tests 09/24/18 08:38 Red Blood Count 3.60 L, Mean Corpuscular Volume 86.7, Mean Corpuscular Hemoglobin 28.9, Mean Corpuscular Hemoglobin Concent 33.3, Red Cell Distribution Width 16.0 H, Neutrophils (%) (Auto) 66.1 H, Lymphocytes (%) (Auto) 17.1 L, Monocytes (%) (Auto) 14.5 H, Eosinophils (%) (Auto) 1.1, Basophils (%) (Auto) 0.6, Neutrophils # (Auto) 3.6, Lymphocytes # (Auto) 0.9 L, Monocytes # (Auto) 0.8, Eosinophils # (Auto) 0.1, Basophils # (Auto) 0.0, Calcium Level 8.4 L, Aspartate Amino Transf (AST/SGOT) 124 H, Alanine Aminotransferase (ALT/SGPT) 132 H, Alkaline Phosphatase 67, Total Bilirubin 1.8 #H, Total Protein 7.5, Albumin 3.5 Microbiology Microbiology 09/24/18 Blood Culture, Received Pending 09/24/18 Blood Culture, Received Pending Impression 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 As expected there is no drainable fluid collection. He seems more comfortable though he still needs narcotic pain medication. Suggested to him to work with physical therapy. Hold the anticoagulation for another couple of days to make sure the hematoma remained stable and if it is a resume anticoagulation then. Will continue to follow. Plan / VTE VTE Exclusion Pharmacological: Bleeding Risk CARLENE YEE MD Sep 25, 2018 07:21
--- NOTE | 2018-09-25 07:54 | ECGEPIP ---
Stationary ECG Study [facility] Test Date: 2018-09-24 Pat Name: IVETT DE LA ROSA Department: Room: [place] [address] Gender: M [employer]: JUSTIN : 1980 Requested By: ANUP DONNELLY Order Number: [id number] Reading MD: Сергей Christie Measurements Intervals [place] Rate: 101 P: 48 NV: 185 QRS: -3 QRSD: 108 T: 29 QT: 335 QTc: 435 Interpretive Statements SINUS TACHYCARDIA Incomplete right bundle branch block Similar to tracing done 08-19-15 with slightly increased rate Electronically Signed On 09-25-2018 7:54:47 EST by Сергей Christie
[2018-09-25] MEDS: THIAMINE 100 MG TAB PO SCH ×2 (08:20→21:07)
[2018-09-25] MEDS: FOLIC ACID 1 MG TAB PO SCH (08:20)
[2018-09-25] MEDS: OMEPRAZOLE 20 MG CAP PO SCH (08:20)
[2018-09-25] MEDS: MULTIVITAMINS/MINERALS THERAP 1 TAB PO SCH (08:20)
[2018-09-25] MEDS: tiZANidine 4 MG TAB PO SCH ×3 (08:21→21:07)
[2018-09-25 08:35] LABS: HEMATOCRIT 32.7 % (42.0-52.0); HEMOGLOBIN 10.8 g/dl (13.5-17.5); MEAN CORPUSCULAR VOLUME 87.9 fl (80.0-96.0); PLATELET COUNT, AUTOMATED 146 10^3/uL (150-450); RED BLOOD COUNT 3.72 10^6/uL (4.30-6.10); WHITE BLOOD COUNT 8.7 10^3/uL (4.0-10.0)
[2018-09-25 09:01] LABS: BLOOD UREA NITROGEN 5 MG/DL (7-18); CALCIUM LEVEL 8.3 MG/DL (8.5-10.1); CARBON DIOXIDE LEVEL 26 MEQ/L (21-32); CHLORIDE LEVEL 103 MEQ/L (98-107); CREATININE FOR GFR 0.87 MG/DL (0.70-1.30); GLOMERULAR FILTRATION RATE > 60.0 (>60); GLUCOSE, FASTING 154 MG/DL (70-100); POTASSIUM SERUM 3.5 MEQ/L (3.5-5.1); SODIUM LEVEL 135 MEQ/L (136-145)
--- NOTE | 2018-09-25 18:31 | IPNPDOC ---
Text Note Date of Service The patient was seen on 09/25/18. NOTE Subjective: Patient is a 37-year-old male who presented with supratherapeutic INR and a left gluteal hematoma. Patient says the pain is mildly better. Patient had an IVC filter placed by vascular surgery yesterday as the patient is not able to be on anticoagulation for some time and asked factor 5 Leiden. Patient says he is feeling better. Patient has had some issues with tachycardia especially while working with PT. Patient otherwise says he is feeling better. Review of systems General: Patient denies fevers HEENT: Patient denies headaches Cardiovascular: Patient denies chest pain Respiratory: Patient denies shortness of breath, cough GI: Patient denies abdominal pain, nausea, vomiting, diarrhea : Patient denies pain or difficulty with urination Neurological: Patient denies numbness or tingling in extremities Extremities: Pain over the left gluteal area Objective: Vitals: (see below) General: No acute distress, laying comfortably in bed. HEENT: Normocephalic, atraumatic, moist mucous membranes. Neck: No JVD or lymphadenopathy Cardiac: RRR, No murmurs Pulm: Clear to auscultation b/l. No wheezing, rhonchi Abd: NT/ND + BS Ext: Bruising over the left outer hip area. Patient has good sensation and 2 out of 4 peripheral pulses bilaterally in lower extremities Labs (see below) Images: No new imaging studies Assessment/Plan 1. Nontraumatic gluteal hematoma secondary to Coumadin use in the supratherapeutic INR. Patient is still in severe pain however, this is been mildly improving. Patient will have a repeat ultrasound to evaluate for expansion of the hematoma on Sunday. At this time we can restart anticoagulation if the hematoma is stable. 2. Supratherapeutic INR. Patient's INR is in a normal range. We'll hopefully restart patient's Coumadin on Sunday if hematoma stable. 3. Alcohol withdrawal. Patient is currently on CIWA protocol and scheduled Serax. We'll continue to monitor. 4. Fever and lactic acidosis. This is resolved at this time the patient has not had any fevers today. Patient will be continued on IV Zosyn. 5. Tachycardia. Patient has been tachycardic so she will getting up with physical therapy. This could be due to patient's pain level as well as alcohol withdrawal. We have ordered an echocardiogram. We will continue to monitor. DVT prophy: She had an IVC filter placed earlier today. We will restart anticoagulation as soon as clinically indicated. Dispo: Pending clinical improvement VS,Fishbone, I+O VS, Fishbone, I+O Laboratory Tests 09/25/18 08:25 Red Blood Count 3.72 L, Mean Corpuscular Volume 87.9, Mean Corpuscular Hemoglobin 29.0, Mean Corpuscular Hemoglobin Concent 33.0, Red Cell Distribution Width 15.7 H, Calcium Level 8.3 L Vital Signs Date Time Temp Pulse Resp B/P (MAP) Pulse Ox O2 Delivery O2 Flow Rate FiO2 09/25/18 17:05 18 09/25/18 16:00 98.1 100 148/80 (102) 95 09/23/18 18:06 1.0 09/23/18 16:05 Nasal Cannula I&O- Last 24 Hours up to 6 AM 09/25/18 06:00 Intake Total 2740 ml Output Total 5400 ml Balance -2660 ml GME ATTESTATION GME ATTESTATION My faculty preceptor for this patient encounter was physically present during the encounter and was fully available. All aspects of the patient interview, examination, medical decision making process, and medical care plan development were reviewed and approved by the faculty preceptor. The faculty preceptor is aware and concurs with the plan as stated in the body of this note and will attest to such by his/her cosignature. JOHN REAL DO Sep 25, 2018 18:31
[2018-09-26] VITALS (7 sets, daily range): BP systolic 119–146; BP diastolic 61–81
[2018-09-26] MEDS: PIPERACILLIN/TAZOBACTAM SOD 3.375 GM in D5W MINI-BAG PLUS 50 ML IV SCH ×4 (00:29→19:11)
[2018-09-26] MEDS: OXAZEPAM 10 MG CAP PO SCH ×3 (06:09→20:55)
[2018-09-26 06:11] LABS: HEMATOCRIT 31.1 % (42.0-52.0); HEMOGLOBIN 9.9 g/dl (13.5-17.5); MEAN CORPUSCULAR HGB CONC 31.8 g/dl (32.0-36.5); MEAN CORPUSCULAR VOLUME 88.1 fl (80.0-96.0); PLATELET COUNT, AUTOMATED 155 10^3/uL (150-450); RED BLOOD COUNT 3.53 10^6/uL (4.30-6.10); WHITE BLOOD COUNT 5.8 10^3/uL (4.0-10.0)
--- NOTE | 2018-09-26 06:25 | ECHO ---
DATE OF PROCEDURE: 09/25/2018 REFERRING PHYSICIAN: Dr. Raymundo Jefferson. INDICATION: Abnormal ECG. HEIGHT: 180 cm. WEIGHT: 97 kg. 2D MEASUREMENTS: Left atrium: 3.9 cm Ventricular septum: 1.09 cm Posterior wall: 1.10 cm Left ventricle diastole: 4.7 cm Aortic root: 3.0 cm Aortic annulus: 2.1 cm Inferior vena cava: 1.9 cm DOPPLER MEASUREMENTS: Aortic valve velocity: 128 cm/s Mitral E velocity: 58.2 cm/s Mitral A velocity: 63.1 cm/s Mitral deceleration time: 203 ms Pulmonary artery systolic pressure 27 mmHg. MITRAL ANNULAR TISSUE DOPPLER: E-prime septal: 7.8 cm/s E-prime lateral: 7.6 cm/s DESCRIPTION: Rhythm was sinus. Image quality was fair. No pericardial effusion. This was a 2D, M-mode, color flow Doppler and pulsed wave Doppler examination and included mitral annular tissue Doppler. CONCLUSIONS: 1. Normal left ventricle internal dimensions and wall thickness. Normal regional LV wall motion and wall thickening. Normal LV systolic function. LVEF 65-70% by visual estimate. 2. Grade I LV diastolic dysfunction. 3. Otherwise normal appearing echocardiogram Doppler findings.
[2018-09-26 06:29] LABS: BLOOD UREA NITROGEN 4 MG/DL (7-18); CALCIUM LEVEL 8.2 MG/DL (8.5-10.1); CARBON DIOXIDE LEVEL 28 MEQ/L (21-32); CHLORIDE LEVEL 109 MEQ/L (98-107); CREATININE FOR GFR 0.83 MG/DL (0.70-1.30); GLOMERULAR FILTRATION RATE > 60.0 (>60); GLUCOSE, FASTING 93 MG/DL (70-100); POTASSIUM SERUM 4.2 MEQ/L (3.5-5.1); SODIUM LEVEL 140 MEQ/L (136-145)
[2018-09-26] MEDS: NS 1,000 ML IV SCH (06:30)
[2018-09-26] MEDS: tiZANidine 4 MG TAB PO SCH ×3 (09:32→20:00)
[2018-09-26] MEDS: OMEPRAZOLE 20 MG CAP PO SCH (09:32)
[2018-09-26] MEDS: FOLIC ACID 1 MG TAB PO SCH (09:32)
[2018-09-26] MEDS: MULTIVITAMINS/MINERALS THERAP 1 TAB PO SCH (09:32)
[2018-09-26] MEDS: oxyCODONE 5MG TAB PO PRN ×2 (09:33→14:05)
--- NOTE | 2018-09-26 11:01 | IPNPDOC ---
Text Note Date of Service The patient was seen on 09/26/18. NOTE Subjective: Patient is a 37-year-old male who presented to the hospital with l eft leg pain. Patient was found have a gluteal hematoma. Patient says today the pain is doing better. He has been able to get up and move around a little bit. Patient says he is going to take some pain medication prior to work with physical therapy so he is able to better tolerate working with physical therapy. Patient says he's feeling much better overall than he had been last few days. Patient's heart rate has been much better on telemetry since yesterday. He is having less episodes of sinus tachycardia. Review of systems General: Patient denies fevers HEENT: Patient denies headaches Cardiovascular: Patient denies chest pain Respiratory: Patient denies shortness of breath, cough GI: Patient denies abdominal pain, nausea, vomiting, diarrhea : Patient denies pain or difficulty with urination Neurological: Patient denies numbness or tingling in extremities Extremities: Pain in the left lower extremity as described above Objective: Vitals: (see below) General: No acute distress, laying comfortably in bed. HEENT: Normocephalic, atraumatic, moist mucous membranes. Neck: No JVD or lymphadenopathy Cardiac: RRR, No murmurs Pulm: Clear to auscultation b/l. No wheezing, rhonchi Abd: NT/ND + BS Ext: Bruising or on the left hip area has expanded however, there is no expansion of swelling in the area. Radial, posterior tibial, and dorsalis pedis pulses equal bilaterally. Labs (see below) Images: No new imaging has been performed. Assessment/Plan 1. Nontraumatic gluteal hematoma secondary to Coumadin use in the setting of supratherapeutic INR. Patient's pain is better controlled today. We'll have a repeat ultrasound to evaluate the expansion of the hematoma on Sunday. Gen. davonte ketty suggesting starting Coumadin back again at this time if hematoma is stable. 2. Supratherapeutic INR. INR is in normal range. 3. Alcohol withdrawal. Patient is currently on CIWA protocol. He is getting scheduled Serax. Patient does not appear to be currently withdrawing from alcohol. 4. Fever and lactic acidosis. This is resolved at this time. We'll continue with antibiotics. 5. Tachycardia. Patient's resting heart rate has been lower overnight today. Patient still becomes tachycardic with slight activity. Echocardiogram did not have any major pathology. DVT prophy: IVC filter was placed. We'll restart anticoagulation as soon as clinically indicated. Dispo: Pending clinical improvement VS,Fishbone, I+O VS, Fishbone, I+O Laboratory Tests 09/26/18 05:54 Red Blood Count 3.53 L, Mean Corpuscular Volume 88.1, Mean Corpuscular Hemoglobin 28.0, Mean Corpuscular Hemoglobin Concent 31.8 L, Red Cell Distribution Width 15.8 H, Calcium Level 8.2 L Vital Signs Date Time Temp Pulse Resp B/P (MAP) Pulse Ox O2 Delivery O2 Flow Rate FiO2 09/26/18 10:20 120 20 09/26/18 08:00 98.3 142/70 (94) 97 09/23/18 18:06 1.0 09/23/18 16:05 Nasal Cannula I&O- Last 24 Hours up to 6 AM 09/26/18 06:00 Intake Total 5620 ml Output Total 3200 ml Balance 2420 ml GME ATTESTATION GME ATTESTATION My faculty preceptor for this patient encounter was physically present during the encounter and was fully available. All aspects of the patient interview, examination, medical decision making process, and medical care plan development were reviewed and approved by the faculty preceptor. The faculty preceptor is aware and concurs with the plan as stated in the body of this note and will attest to such by his/her cosignature. JOHN REAL DO Sep 26, 2018 11:01
[2018-09-26] MEDS ORDERED: SLF 3 ML SYR IV PRN (13:15)
--- NOTE | 2018-09-26 13:48 | IPNPDOC ---
Subjective General Date/Time Seen The patient was seen on 09/26/18 at 13:44. Subject Chief Complaint/History The patient is a 37-year-old male admitted with a reason for visit of Alcohol Dependence With Withdrawal. The past by the patient today he looks comfortable in bed. He says his discomfort is mildly improved though he still has a lot of pain with ambulation and his heart rate goes up when he tries to ambulate which causes concerned with the physical therapist and nurses. Otherwise his hemoglobin and hematocrit has been stable. His bruising/hematoma is more prominent now. Current Medications Current Medications Current Medications Acetaminophen (Tylenol Tab) 650 mg Q8HP PRN PO PAIN / FEVER Last administered on 09/24/18at 09:56; Start 09/24/18 at 09:30 Albuterol Sulfate (Proventil, Ventolin Hfa) 2 puff Q4HP PRN INH SHORTNESS OF BREATH; Start 09/23/18 at 17:45 Folic Acid (Folic Acid) 1 mg DAILY PO Last administered on 09/23/18at 13:26; Start 09/23/18 at 09:00; Stop 09/23/18 at 14:23; Status DC Folic Acid (Folic Acid) 1 mg DAILY PO Last administered on 09/26/18at 09:32; Start 09/24/18 at 09:00 Home Med (Med Rec Complete!) ASDIRECTED XX ; Start 09/23/18 at 15:00; Stop 09/23/18 at 15:00; Status DC Lorazepam (Ativan) 1 mg STAT STAT IV Last administered on 09/23/18at 13:16; Start 09/23/18 at 13:04; Stop 09/23/18 at 13:12; Status DC Lorazepam (Ativan) 2 mg ASDIRECTED PRN PO SEE PROTOCOL; Start 09/23/18 at 14:30 Morphine Sulfate (Morphine Sulfate Inj) 2 mg Q2HP PRN IV BREAKTHROUGH PAIN Last administered on 09/24/18at 09:06; Start 09/23/18 at 17:30 Morphine Sulfate (Morphine Sulfate Inj) 4 mg Q15M PRN IV MODERATE/SEVERE PAIN (PS 5-10) Last administered on 09/23/18at 10:19; Start 09/23/18 at 09:30; Stop 09/23/18 at 10:19; Status DC Multivitamins (Theragram-M) 1 tab DAILY PO Last administered on 09/23/18 13:27; Start 09/23/18 at 09:00; Stop 09/23/18 at 14:23; Status DC Multivitamins (Theragram-M) 1 tab DAILY PO Last administered on 09/26/18 09:32; Start 09/24/18 at 09:00 Omeprazole (PriLOSEC) 40 mg DAILY PO Last administered on 09/26/18 09:32; S tart 09/24/18 at 09:00 Oxazepam (Serax) 10 mg Q8H PO Last administered on 09/26/18 06:09; Start at 14:00 Oxycodone HCl (Roxicodone, Oxyir) 5 mg Q4HP PRN PO PAIN Last administered on 09/26/18 09:33; Start 09/24/18 at 12:00 Piperacillin Sod/ Tazobactam Sod 3.375 gm/Dextrose 50 ml @ 50 mls/hr Q6H IV Last administered on 09/26/18 13:02; Start 09/24/18 at 13:00 Sodium Chloride 1,000 ml @ 125 mls/hr Q8H IV Last administered on 09/26/18 06:30; Start 09/23/18 at 14:30; Stop 09/26/18 at 13:20; Status DC Sodium Chloride (Saline Lock Flush) 2 ml ASDIRECTED PRN IV SEE LABEL COMMENTS; Start 09/26/18 at 13:15 Sodium Chloride (Saline Lock Flush) 2 ml SLF IV ; Start 09/26/18 at 14:00 Thiamine HCl (Thiamine HCl) 100 mg BID PO Last administered on 09/23/18 13:26; Start 09/23/18 at 09:00; Stop 09/23/18 at 14:32; Status DC Thiamine HCl (Thiamine HCl) 100 mg BID PO Last administered on 09/25/18 21:07; Start 09/23/18 at 21:00; Stop 09/25/18 at 21:01; Status DC Tizanidine HCl (Zanaflex) 4 mg TID PO Last administered on 09/26/18 09:32; Start 09/23/18 at 16:00 Allergies Coded Allergies: No Known Allergies (Unverified , 10/29/14) Objective Physical Examination Examination GENERAL APPEARANCE: Looks more comfortable. SKIN: White area of bruising of the skin and underlying soft tissue hematoma without any fluctuance or skin breakdown over the left hip and gluteal area. Mild tenderness on palpation. EXTREMITIES: Good peripheral pulses on the left side. 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 No sensory numbness.. Vital Signs Vital Signs Date Time Temp Pulse Resp B/P (MAP) Pulse Ox O2 Delivery O2 Flow Rate FiO2 09/26/18 12:00 98.3 96 18 125/73 (90) 95 09/23/18 18:06 1.0 09/23/18 16:05 Nasal Cannula I&Os I&O- Last 24 Hours up to 6 AM 09/26/18 06:00 Intake Total 5620 ml Output Total 3200 ml Balance 2420 ml Laboratory Data Labs 24H Laboratory Tests 2 09/26/18 05:54: Nucleated Red Blood Cells % (auto) 0.0, Anion Gap 3L, Glomerular Filtration Rate > 60.0, Blood Urea Nitrogen 4L, Creatinine 0.83, Sodium Level 140, Potassium Level 4.2, Chloride Level 109H, Carbon Dioxide Level 28, Calcium Level 8.2L CBC/BMP Laboratory Tests 09/26/18 05:54 Red Blood Count 3.53 L, Mean Corpuscular Volume 88.1, Mean Corpuscular Hemoglobin 28.0, Mean Corpuscular Hemoglobin Concent 31.8 L, Red Cell Distributi on Width 15.8 H, Calcium Level 8.2 L Microbiology Microbiology 09/24/18 Blood Culture - Preliminary, Resulted No Growth after 48 hours. All Specime... 09/24/18 Blood Culture - Preliminary, Resulted No Growth after 48 hours. All Specime... Impression Spontaneous hematoma on the left gluteal area secondary to supratherapeutic INR. Patient is on Coumadin for recurrent DVTs. Patient is improving. Continue with physical therapy. Probably safe enough to restart anticoagulation in a day or so. I will leave this to the primary care service. Plan / VTE VTE Prophylaxis Ordered?: No VTE Exclusion Pharmacological: Bleeding Risk CARLENE YEE MD Sep 26, 2018 13:48
[2018-09-26] MEDS: SLF 3 ML SYR IV SCH ×2 (14:14→20:55)
[2018-09-27] VITALS (7 sets, daily range): BP systolic 130–168; BP diastolic 70–89
[2018-09-27] MEDS: PIPERACILLIN/TAZOBACTAM SOD 3.375 GM in D5W MINI-BAG PLUS 50 ML IV SCH ×2 (00:58→06:17)
[2018-09-27 05:38] LABS: HEMATOCRIT 30.1 % (42.0-52.0); MEAN CORPUSCULAR HEMOGLOBIN 29.1 pg (27.0-33.0); MEAN CORPUSCULAR HGB CONC 33.2 g/dl (32.0-36.5); MEAN CORPUSCULAR VOLUME 87.5 fl (80.0-96.0); PLATELET COUNT, AUTOMATED 191 10^3/uL (150-450); RED BLOOD COUNT 3.44 10^6/uL (4.30-6.10)
[2018-09-27] MEDS: SLF 3 ML SYR IV SCH ×3 (06:00→20:08)
[2018-09-27 06:09] LABS: ALBUMIN 2.8 GM/DL (3.2-5.2); ALT/SGPT 98 U/L (12-78); BILIRUBIN,DIRECT 0.3 MG/DL (0.0-0.2); BLOOD UREA NITROGEN 4 MG/DL (7-18); CALCIUM LEVEL 8.2 MG/DL (8.5-10.1); CARBON DIOXIDE LEVEL 25 MEQ/L (21-32); CHLORIDE LEVEL 107 MEQ/L (98-107); CREATININE FOR GFR 0.86 MG/DL (0.70-1.30); GLOMERULAR FILTRATION RATE > 60.0 (>60); GLUCOSE, FASTING 94 MG/DL (70-100); POTASSIUM SERUM 3.5 MEQ/L (3.5-5.1); SODIUM LEVEL 139 MEQ/L (136-145); TOTAL PROTEIN 7.2 GM/DL (6.4-8.2)
[2018-09-27] MEDS: OXAZEPAM 10 MG CAP PO SCH (06:17)
[2018-09-27] MEDS: tiZANidine 4 MG TAB PO SCH ×3 (08:44→20:08)
[2018-09-27] MEDS: OMEPRAZOLE 20 MG CAP PO SCH (08:44)
[2018-09-27] MEDS: FOLIC ACID 1 MG TAB PO SCH (08:44)
[2018-09-27] MEDS: MULTIVITAMINS/MINERALS THERAP 1 TAB PO SCH (08:44)
[2018-09-27 08:59] LABS: INR 1.1; PROTHROMBIN TIME 14.3 SECONDS (12.1-14.4)
[2018-09-27] MEDS: oxyCODONE 5MG TAB PO PRN (09:29)
[2018-09-27] MEDS ORDERED: oxyCODONE 5MG TAB PO PRN (11:30)
--- NOTE | 2018-09-27 11:58 | IPNPDOC ---
Subjective General Date/Time Seen The patient was seen on 09/27/18 at 11:55. Subject Chief Complaint/History The patient is a 37-year-old male admitted with a reason for visit of Alcohol Dependence With Withdrawal. Patient still reports a lot of discomfort. He has not ambulated yet independently. His PT was held because his heart which got up in the 160s yesterday. Otherwise been hemodynamically stable. Current Medications Current Medications Current Medications Acetaminophen (Tylenol Tab) 650 mg Q8HP PRN PO PAIN / FEVER Last administered on 09/24/18 09:56; Start 09/24/18 at 09:30 Albuterol Sulfate (Proventil, Ventolin Hfa) 2 puff Q4HP PRN INH SHORTNESS OF BREATH; Start 09/23/18 at 17:45 Folic Acid (Folic Acid) 1 mg DAILY PO Last administered on 09/23/18 13:26; Start 09/23/18 at 09:00; Stop 09/23/18 at 14:23; Status DC Folic Acid (Folic Acid) 1 mg DAILY PO Last administered on 09/27/18at 08:44; Start 09/24/18 at 09:00 Home Med (Med Rec Complete!) ASDIRECTED XX ; Start 09/23/18 at 15:00; Stop 09/23/18 at 15:00; Status DC Lorazepam (Ativan) 1 mg STAT STAT IV Last administered on 09/23/18at 13:16; Start 09/23/18 at 13:04; Stop 09/23/18 at 13:12; Status DC Lorazepam (Ativan) 2 mg ASDIRECTED PRN PO SEE PROTOCOL; Start 09/23/18 at 14:30; Status Cancel Morphine Sulfate (Morphine Sulfate Inj) 2 mg Q2HP PRN IV BREAKTHROUGH PAIN Last administered on 09/24/18 09:06; Start 09/23/18 at 17:30 Morphine Sulfate (Morphine Sulfate Inj) 4 mg Q15M PRN IV MODERATE/SEVERE PAIN (PS 5-10) Last administered on 09/23/18at 10:19; Start 09/23/18 at 09:30; Stop 09/23/18 at 10:19; Status DC Multivitamins (Theragram-M) 1 tab DAILY PO Last administered on 09/23/18 13:27; Start 09/23/18 at 09:00; Stop 09/23/18 at 14:23; Status DC Multivitamins (Theragram-M) 1 tab DAILY PO Last administered on 09/27/18 08:44; Start 09/24/18 at 09:00 Omeprazole (PriLOSEC) 40 mg DAILY PO Last administered on 09/27/18 08:44; Start 09/24/18 at 09:00 Oxazepam (Serax) 10 mg Q8H PO Last administered on 09/27/18 06:17; Start 09/24/18 at 14:00; Stop 09/27/18 at 11:24; Status DC Oxycodone HCl (Roxicodone, Oxyir) 5 mg Q4HP PRN PO PAIN Last administered on 09/27/18 09:29; Start 09/24/18 at 12:00; Stop 09/27/18 at 11:24; Status DC Oxycodone HCl (Roxicodone, Oxyir) 10 mg Q6HP PRN PO PAIN; Start 09/27/18 at 11:30; Stop 10/04/18 at 11:29 Piperacillin Sod/ Tazobactam Sod 3.375 gm/Dextrose 50 ml @ 50 mls/hr Q6H IV Last administered on 09/27/18 06:17; Start 09/24/18 at 13:00 Sodium Chloride 1,000 ml @ 125 mls/hr Q8H IV Last administered on 09/26/18 06:30; Start 09/23/18 at 14:30; Stop 09/26/18 at 13:20; Status DC Sodium Chloride (Saline Lock Flush) 2 ml ASDIRECTED PRN IV SEE LABEL COMMENTS Last administered on 09/26/18 19:11; Start 09/26/18 at 13:15 Sodium Chloride (Saline Lock Flush) 2 ml SLF IV Last administered on 09/27/18 06:00; Start 09/26/18 at 14:00 Thiamine HCl (Thiamine HCl) 100 mg BID PO Last administered on 09/23/18 13:26; Start 09/23/18 at 09:00; Stop 09/23/18 at 14:32; Status DC Thiamine HCl (Thiamine HCl) 100 mg BID PO Last administered on 09/25/18 21:07; Start 09/23/18 at 21:00; Stop 09/25/18 at 21:01; Status DC Tizanidine HCl (Zanaflex) 4 mg TID PO Last administered on 09/27/18at 08:44; Start 09/23/18 at 16:00 Warfarin Sodium (Coumadin) 5 mg DAILY@17 PO ; Start 09/27/18 at 17:00 Allergies Coded Allergies: No Known Allergies (Unverified , 10/29/14) Objective Physical Examination Examination GENERAL APPEARANCE: Looks comfortable. SKIN: Warm and dry. Large area of skin ecchymosis extending from the left hip to the lateral thigh area. Moderate-sized hematoma underneath the left hip area. No skin breakdown.. Extremities: Chronic left lower leg edema stable. Patient seems to be able to move lower extremity better. No sensory deficits reported. Vital Signs Vital Signs Date Time Temp Pulse Resp B/P (MAP) Pulse Ox O2 Delivery O2 Flow Rate FiO2 09/27/18 09:29 18 09/27/18 08:00 98.2 90 140/80 (100) 95 09/23/18 18:06 1.0 09/23/18 16:05 Nasal Cannula I&Os I&O- Last 24 Hours up to 6 AM 09/27/18 06:00 Intake Total 2030 ml Output Total 1450 ml Balance 580 ml Laboratory Data Labs 24H Laboratory Tests 2 09/26/18 13:46: Urine Color YELLOW, Urine Appearance CLEAR, Urine pH 7.0, Urine Specific [place]der[place]ott 1.008, Urine Protein NEGATIVE, Urine Glucose (UA) NEGATIVE, Urine Ketones NEGATIVE, Urine Blood NEGATIVE, Urine Nitrite NEGATIVE, Urine Bilirubin NEGATIVE, Urine Urobilinogen 0.2, Urine Leukocyte Esterase NEGATIVE, Urine WBC (Auto) 0, Urine RBC (Auto) 2, Urine Hyaline Casts (Auto) 0, Urine Bacteria (Auto) NEGATIVE, Urine Squamous Epithelial Cells 0, Urine Sperm (Auto) 09/27/18 05:03: Nucleated Red Blood Cells % (auto) 0.0, Anion Gap 7L, Glomerular Filtration Rate > 60.0, Calcium Level 8.2L, Aspartate Amino Transf (AST/SGOT) 79H, Alanine Aminotransferase (ALT/SGPT) 98H, Alkaline Phosphatase 65, Total Bilirubin 1.0, Direct Bilirubin 0.3H, Total Protein 7.2, Albumin 2.8L, Albumin/Globulin Ratio 0.64L 09/27/18 08:24: Prothrombin Time 14.3, Prothromb Time International Ratio 1.10 CBC/BMP Laboratory Tests 09/27/18 05:03 Red Blood Count 3.44 L, Mean Corpuscular Volume 87.5, Mean Corpuscular Hemoglobin 29.1, Mean Corpuscular Hemoglobin Concent 33.2, Red Cell Distribution Width 16.2 H Microbiology Microbiology 09/24/18 Blood Culture - Preliminary, Resulted No Growth after 72 hours. All specime... 09/24/18 Blood Culture - Preliminary, Resulted No Growth after 72 hours. All specime... Impression Left gluteal hematoma stable Recurrent DVTs status post placement of IVC filter His Coumadin has been restarted starting today. Closely monitor the hematoma site likewise level of anticoagulation. Plan / VTE VTE Prophylaxis Ordered?: No VTE Exclusion Pharmacological: Bleeding Risk CARLENE YEE MD Sep 27, 2018 11:58
--- NOTE | 2018-09-27 13:43 | IPNPDOC ---
Text Note Date of Service The patient was seen on 09/27/18. NOTE Subjective: Patient is a 37-year-old male who presented to the hospital the left gluteal hematoma in the setting of a supratherapeutic INR. Patient was also an alcohol withdrawal. Patient is doing slightly better however, he says he did not get a good night sleep last night. He still is having severe pain especially with ambulation. Patient says he can feel his feet and move his feet is not having any issues with sensory deprivation. Patient has not really nail work with physical therapy because the patient's heart rate keeps becoming elevated. Review of systems General: Patient denies fevers HEENT: Patient denies headaches Cardiovascular: Patient denies chest pain Respiratory: Patient denies shortness of breath, cough GI: Patient denies abdominal pain, nausea, vomiting, diarrhea : Patient denies pain or difficulty with urination Neurological: Patient denies numbness or tingling in extremities Extremities: Pain and bruising about the left hip. Objective: Vitals: (see below) General: No acute distress, laying comfortably in bed. HEENT: Normocephalic, atraumatic, moist mucous membranes. Neck: No JVD or lymphadenopathy Cardiac: RRR, No murmurs Pulm: Clear to auscultation b/l. No wheezing, rhonchi Abd: NT/ND + BS Ext: Large area of ecchymosis over the left hip and gluteal region. Radial pulses 2 out of 4 bilaterally. Posterior tibial and dorsalis pedis pulses are equal bilaterally. They are diminished bilaterally as well. Labs (see below) Images: No imaging has been performed since 09/24/2018 Assessment/Plan 1. Nontraumatic gluteal hematoma secondary to Coumadin use in the setting of a supratherapeutic INR. Patient's pain is slowly improving however still remains severe. Coumadin has been restarted at this time as the hematoma appears stable. 2. Supratherapeutic INR. INR is currently in normal range. We'll continue to monitor as we restart the patient's Coumadin. 3. Alcohol withdrawal. We have discontinued the patient's scheduled Serax and we will continue to monitor. 4. Fevers and lactic acidosis. This is resolved at this time. Patient's IV Zosyn has been discontinued as blood cultures have come back negative. 5. Tachycardia. Patient's resting heart rate has been lower overnight. Physical therapy was unable to work with the patient because the patient's heart rate went to the 160s. We will continue to monitor. DVT prophy: IVC filter in place and Coumadin has been restarted today. Dispo: Pending clinical improvement VS,Fishbone, I+O VS, Fishbone, I+O Laboratory Tests 09/27/18 05:03 Red Blood Count 3.44 L, Mean Corpuscular Volume 87.5, Mean Corpuscular Hemoglobin 29.1, Mean Corpuscular Hemoglobin Concent 33.2, Red Cell Distribution Width 16.2 H Vital Signs Date Time Temp Pulse Resp B/P (MAP) Pulse Ox O2 Delivery O2 Flow Rate FiO2 09/27/18 12:00 98.3 90 17 131/74 (93) 97 09/23/18 18:06 1.0 09/23/18 16:05 Nasal Cannula I&O- Last 24 Hours up to 6 AM 09/27/18 06:00 Intake Total 2030 ml Output Total 1450 ml Balance 580 ml GME ATTESTATION GME ATTESTATION My faculty preceptor for this patient encounter was physically present during the encounter and was fully available. All aspects of the patient interview, examination, medical decision making process, and medical care plan development were reviewed and approved by the faculty preceptor. The faculty preceptor is aware and concurs with the plan as stated in the body of this note and will attest to such by his/her cosignature. JOHN REAL DO Sep 27, 2018 13:43
[2018-09-27] MEDS ORDERED: WARFARIN SOD 5 MG TAB PO SCH (17:00)
[2018-09-28] MEDS: SLF 3 ML SYR IV SCH ×3 (03:36→22:00)
[2018-09-28 04:00] VITALS: BP 144/78
[2018-09-28 04:38] LABS: HEMATOCRIT 29.3 % (42.0-52.0); HEMOGLOBIN 9.7 g/dl (13.5-17.5); MEAN CORPUSCULAR HEMOGLOBIN 29.7 pg (27.0-33.0); MEAN CORPUSCULAR HGB CONC 33.1 g/dl (32.0-36.5); MEAN CORPUSCULAR VOLUME 89.6 fl (80.0-96.0); PLATELET COUNT, AUTOMATED 229 10^3/uL (150-450); RED BLOOD COUNT 3.27 10^6/uL (4.30-6.10); WHITE BLOOD COUNT 5.4 10^3/uL (4.0-10.0)
[2018-09-28 04:52] LABS: INR 1.13; PROTHROMBIN TIME 14.7 SECONDS (12.1-14.4)
[2018-09-28 04:57] LABS: BLOOD UREA NITROGEN 6 MG/DL (7-18); CALCIUM LEVEL 8.3 MG/DL (8.5-10.1); CARBON DIOXIDE LEVEL 26 MEQ/L (21-32); CHLORIDE LEVEL 107 MEQ/L (98-107); CREATININE FOR GFR 0.77 MG/DL (0.70-1.30); GLOMERULAR FILTRATION RATE > 60.0 (>60); GLUCOSE, FASTING 97 MG/DL (70-100); POTASSIUM SERUM 3.6 MEQ/L (3.5-5.1); SODIUM LEVEL 139 MEQ/L (136-145)
[2018-09-28] MEDS: ACETAMINOPHEN TAB 650MG DOSE (2X325MG) PO PRN (07:19)
[2018-09-28 08:00] VITALS: BP 144/88
[2018-09-28] MEDS: FOLIC ACID 1 MG TAB PO SCH (08:18)
[2018-09-28] MEDS: MULTIVITAMINS/MINERALS THERAP 1 TAB PO SCH (08:18)
[2018-09-28] MEDS: OMEPRAZOLE 20 MG CAP PO SCH (08:18)
[2018-09-28] MEDS: tiZANidine 4 MG TAB PO SCH ×3 (08:18→20:23)
--- NOTE | 2018-09-28 15:51 | IPNPDOC ---
Text Note Date of Service The patient was seen on 09/28/18. NOTE Subjective: Patient is a 37-year-old male who presents to the hospital with a left gluteal hematoma. This is been stable for the past few days. Patient is feeling much better today. Patient still continues to have pain however, it is improving. Patient was restarted on home anticoagulation medication with Coumadin yesterday. Patient says he is doing much better today. Patient's oxa zepam was discontinued yesterday and patient does not feel any ramifications from this. Patient has no difficulty eating and drinking nor going to bathroom. Review of systems General: Patient denies fevers HEENT: Patient denies headaches Cardiovascular: Patient denies chest pain Respiratory: Patient denies shortness of breath, cough GI: Patient denies abdominal pain, nausea, vomiting, diarrhea : Patient denies pain or difficulty with urination Neurological: Patient denies numbness or tingling in extremities Extremities: Large left gluteal hematoma which is cloth dyeing range tender to the touch. Objective: Vitals: (see below) General: No acute distress, laying comfortably in bed. HEENT: Normocephalic, atraumatic, moist mucous membranes. Neck: No JVD or lymphadenopathy Cardiac: RRR, No murmurs Pulm: Clear to auscultation b/l. No wheezing, rhonchi Abd: NT/ND + BS Ext: Large area of ecchymosis on the left hip extending down the left outer leg. This is tender to the touch. Pulses are equal in the dorsalis pedis and posterior tibial bilaterally Labs (see below) Images: No new imaging has been performed Assessment/Plan 1. Nontraumatic gluteal hematoma secondary to Coumadin use in the setting of supratherapeutic INR. Patient's pain slowly improving however still remains moderate to severe. Coumadin has been restarted and we will continue to monitor. 2. Supratherapeutic INR. INR is now currently within normal range. Patient's Coumadin has been restarted and we will continue to monitor the patient's INR. 3. Alcohol withdrawal. Patient has had no adverse effects from the discontinuation of his schedule oxazepam. 4. Fevers lactic acidosis. This is resolved. IV Zosyn has been discontinued. 5. Tachycardia. Patient's resting heart rate has been lower. We will continue to monitor as he worked with physical therapy. DVT prophy: IVC filter is in place and Coumadin has been restarted. Dispo: Pending clinical improvement and clearance by PET. Patient's INR must be therapeutic prior to discharge. VS,Fishbone, I+O VS, Fishbone, I+O Laboratory Tests 09/28/18 04:22 Red Blood Count 3.27 L, Mean Corpuscular Volume 89.6, Mean Corpuscular Hemoglob in 29.7, Mean Corpuscular Hemoglobin Concent 33.1, Red Cell Distribution Width 16.7 H, Calcium Level 8.3 L Vital Signs Date Time Temp Pulse Resp B/P (MAP) Pulse Ox O2 Delivery O2 Flow Rate FiO2 09/28/18 08:00 99.1 81 20 144/88 (106) 96 09/23/18 18:06 1.0 09/23/18 16:05 Nasal Cannula I&O- Last 24 Hours up to 6 AM 09/28/18 06:00 Intake Total 1730 ml Output Total 1475 ml Balance 255 ml GME ATTESTATION GME ATTESTATION My faculty preceptor for this patient encounter was physically present during the encounter and was fully available. All aspects of the patient interview, examination, medical decision making process, and medical care plan development were reviewed and approved by the faculty preceptor. The faculty preceptor is aware and concurs with the plan as stated in the body of this note and will attest to such by his/her cosignature. ATTENDING NOTE I have both independently examined this patient as well as reviewed the note I have discussed in detail the findings and plan of treatment as documented in the note. I will continue to follow the patient and offer further guidance to the patients care as necessary during this hospital stay. JOHN Minor MD, DO Sep 28, 2018 15:51 QUIN MCRAE MD Sep 29, 2018 07:12
[2018-09-28 16:00] VITALS: BP 176/86
[2018-09-28] MEDS: WARFARIN SOD 7.5 MG TAB PO SCH (16:55)
[2018-09-28 17:33] VITALS: BP 142/78
[2018-09-28 22:00] VITALS: BP 138/86
[2018-09-29] MEDS: SLF 3 ML SYR IV SCH ×3 (05:48→22:00)
[2018-09-29 05:54] LABS: HEMATOCRIT 32.3 % (42.0-52.0); HEMOGLOBIN 10.3 g/dl (13.5-17.5); MEAN CORPUSCULAR HEMOGLOBIN 28.6 pg (27.0-33.0); MEAN CORPUSCULAR HGB CONC 31.9 g/dl (32.0-36.5); MEAN CORPUSCULAR VOLUME 89.7 fl (80.0-96.0); PLATELET COUNT, AUTOMATED 262 10^3/uL (150-450); WHITE BLOOD COUNT 5.7 10^3/uL (4.0-10.0)
[2018-09-29 06:00] VITALS: BP 134/89
[2018-09-29 06:05] LABS: INR 1.18; PROTHROMBIN TIME 15.2 SECONDS (12.1-14.4)
[2018-09-29 06:17] LABS: BLOOD UREA NITROGEN 8 MG/DL (7-18); CALCIUM LEVEL 8.5 MG/DL (8.5-10.1); CARBON DIOXIDE LEVEL 26 MEQ/L (21-32); CHLORIDE LEVEL 106 MEQ/L (98-107); CREATININE FOR GFR 0.84 MG/DL (0.70-1.30); GLOMERULAR FILTRATION RATE > 60.0 (>60); GLUCOSE, FASTING 95 MG/DL (70-100); POTASSIUM SERUM 3.8 MEQ/L (3.5-5.1); SODIUM LEVEL 139 MEQ/L (136-145)
[2018-09-29] MEDS: FOLIC ACID 1 MG TAB PO SCH (09:00)
[2018-09-29] MEDS: tiZANidine 4 MG TAB PO SCH ×3 (09:00→22:04)
[2018-09-29] MEDS: MULTIVITAMINS/MINERALS THERAP 1 TAB PO SCH (09:00)
[2018-09-29] MEDS: OMEPRAZOLE 20 MG CAP PO SCH (09:00)
[2018-09-29 14:00] VITALS: BP 143/80
--- NOTE | 2018-09-29 15:37 | IPN ---
DATE: 09/29/2018 Patient is seen and examined. Reported mild left thigh pain with bruising that is not significantly changed from yesterday. Able to ambulate. Denies any chest pain, pressure, or discomfort. VITAL SIGNS: Temperature 97.6, pulse 97, respirations 18, blood pressure 143/80, pulse oximetry 95% on room air. LABORATORY DATA: WBC 5.7, hemoglobin and hematocrit 10.3/32.3, platelets 262. Chemistry: Sodium 139, potassium 3.8, chloride 106, bicarbonate 26, BUN 8, creatinine 0.84, INR 1.1. PHYSICAL EXAMINATION: GENERAL: Patient alert, comfortable, in no acute distress. HEENT: Normocephalic, atraumatic. PULMONARY: Bilateral clear. CARDIAC: Regular, S1, S2. ABDOMEN: Soft, nontender, positive bowel sounds. EXTREMITIES: Large area of ecchymosis with induration left hip, down the left outer leg. Tenderness to palpation. Dorsalis pedis/posterior tibialis (DP/PT) pluses intact bilateral. 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 1. Nontraumatic left gluteal hematoma secondary to Coumadin in the setting of supratherapeutic INR, improving. Coumadin was initially on hold, currently restarted. Will monitor hemoglobin and hematocrit and will monitor the hematoma. 2. Supratherapeutic INR. Currently INR in the normal range. Coumadin Restarted. Followup INR. 3. Alcohol withdrawal. Patient has no adverse effects. Currently off of Serax. 4. Fever and lactic acidosis. Off of antibiotics. Symptoms resolved. Likely reactive secondary to hematoma. 5. Tachycardia, improved. Will monitor. 6. History of multiple recurrent deep venous thromboses (DVTs) with Factor V Leiden deficiency. Patient status post inferior vena cava (IVC) filter. Continue Coumadin. Followup INR. 7. Deep venous thrombosis (DVT) prophylaxis. Patient has an inferior vena cava (IVC) filter. Coumadin has been restarted. Followup INR. Will avoid Lovenox at this point given large gluteal hematoma. Monitor INR. DISPOSITION: Pending physical therapy and therapeutic INR.
[2018-09-29] MEDS: WARFARIN SOD 7.5 MG TAB PO SCH (16:57)
[2018-09-29 22:00] VITALS: BP 142/83
[2018-09-30] MEDS: SLF 3 ML SYR IV SCH ×2 (05:42→11:27)
[2018-09-30 06:00] VITALS: BP 138/98
[2018-09-30 06:29] LABS: HEMATOCRIT 33.3 % (42.0-52.0); HEMOGLOBIN 10.7 g/dl (13.5-17.5); MEAN CORPUSCULAR HGB CONC 32.1 g/dl (32.0-36.5); MEAN CORPUSCULAR VOLUME 90.2 fl (80.0-96.0); PLATELET COUNT, AUTOMATED 289 10^3/uL (150-450); RED BLOOD COUNT 3.69 10^6/uL (4.30-6.10); WHITE BLOOD COUNT 5.9 10^3/uL (4.0-10.0)
[2018-09-30 06:37] LABS: INR 1.11; PROTHROMBIN TIME 14.4 SECONDS (12.1-14.4)
[2018-09-30 06:38] LABS: BLOOD UREA NITROGEN 9 MG/DL (7-18); CALCIUM LEVEL 8.8 MG/DL (8.5-10.1); CARBON DIOXIDE LEVEL 27 MEQ/L (21-32); CHLORIDE LEVEL 106 MEQ/L (98-107); CREATININE FOR GFR 0.78 MG/DL (0.70-1.30); GLOMERULAR FILTRATION RATE > 60.0 (>60); GLUCOSE, FASTING 88 MG/DL (70-100); SODIUM LEVEL 139 MEQ/L (136-145)
[2018-09-30] MEDS: MULTIVITAMINS/MINERALS THERAP 1 TAB PO SCH (08:24)
[2018-09-30] MEDS: tiZANidine 4 MG TAB PO SCH ×3 (08:24→21:22)
[2018-09-30] MEDS: FOLIC ACID 1 MG TAB PO SCH (08:24)
[2018-09-30] MEDS: OMEPRAZOLE 20 MG CAP PO SCH (08:24)
[2018-09-30] MEDS: KETOCONAZOLE 2% CREAM TOP SCH ×2 (11:33→21:22)
[2018-09-30 14:00] VITALS: BP 161/82
[2018-09-30] MEDS: ADVAIR HFA 115/21MCG INHALER INH SCH ×2 (15:00→19:39)
[2018-09-30] MEDS ORDERED: WARFARIN SOD 5 MG TAB PO SCH (17:00)
--- NOTE | 2018-09-30 17:36 | IPNPDOC ---
Text Note Date of Service The patient was seen on 09/30/18. NOTE Subjective: Patient is a 37-year-old male who presented to the hospital with a gluteal hematoma on his left side. Patient is doing much better today. He is walking with a walker. He says the pain is better controlled. He is eating and drinking without difficulty. He is going to the bathroom without difficulty. Review of systems General: Patient denies fevers HEENT: Patient denies headaches Cardiovascular: Patient denies chest pain Respiratory: Patient denies shortness of breath, cough GI: Patient denies abdominal pain, nausea, vomiting, diarrhea : Patient denies pain or difficulty with urination Neurological: Patient denies numbness or tingling in extremities Extremities: Pain, bruising, swelling still present however better. Objective: Vitals: (see below) General: No acute distress, laying comfortably in bed. HEENT: Normocephalic, atraumatic, moist mucous membranes. Neck: No JVD or lymphadenopathy Cardiac: RRR, No murmurs Pulm: Clear to auscultation b/l. No wheezing, rhonchi Abd: NT/ND + BS Ext: Large area of ecchymosis on the left outer hip extending down the left outer leg. This area is tender to the touch. No peripheral edema. Pulses intact in bilateral lower extremities. Labs (see below) Images: No new imaging has been performed Assessment/Plan 1. Nontraumatic left gluteal hematoma secondary to Coumadin use in the setting of supratherapeutic INR patient is improving. We have restarted the patient's Coumadin. Patient is now on 10 mg daily. 2. Supratherapeutic INR. INR is currently in the normal range. INR today was 1.11. Coumadin dose has been increased to 10 mg from 7.5 mg. 3. Alcohol withdrawal. Patient has had no adverse effects. Patient is been off of Serax for 3 days. 4. Fever and lactic acidosis. Off antibiotics. Symptoms resolved. Patient doing better. 5. Tachycardia. Improved. We'll continue to monitor. 6. 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 Patient is status post IVC filter. Continue Coumadin and follow INRs. DVT prophy: Coumadin Dispo: Pending physical therapy and therapeutic INR VS,Fishbone, I+O VS, Fishbone, I+O Laboratory Tests 09/30/18 05:25 Red Blood Count 3.69 L, Mean Corpuscular Volume 90.2, Mean Corpuscular Hemoglobin 29.0, Mean Corpuscular Hemoglobin Concent 32.1, Red Cell Distribution Width 17.1 H, Calcium Level 8.8 Vital Signs Date Time Temp Pulse Resp B/P (MAP) Pulse Ox O2 Delivery O2 Flow Rate FiO2 09/30/18 14:00 98.6 97 18 161/82 (108) 97 I&O- Last 24 Hours up to 6 AM 09/30/18 06:00 Intake Total 1440 ml Balance 1440 ml GME ATTESTATION GME ATTESTATION My faculty preceptor for this patient encounter was physically present during the encounter and was fully available. All aspects of the patient interview, examination, medical decision making process, and medical care plan development were reviewed and approved by the faculty preceptor. The faculty preceptor is aware and concurs with the plan as stated in the body of this note and will attest to such by his/her cosignature. ATTENDING NOTE I have both independently examined this patient as well as reviewed the note I have discussed in detail the findings and plan of treatment as documented in the note. I will continue to follow the patient and offer further guidance to the patients care as necessary during this hospital stay. JOHN Minor MD, DO Sep 30, 2018 17:36 QUIN MCRAE MD Oct 01, 2018 07:42
[2018-09-30 22:00] VITALS: BP 140/78
[2018-10-01 06:00] VITALS: BP 155/78
[2018-10-01 06:06] LABS: HEMATOCRIT 34.2 % (42.0-52.0); HEMOGLOBIN 10.8 g/dl (13.5-17.5); MEAN CORPUSCULAR HEMOGLOBIN 28.9 pg (27.0-33.0); MEAN CORPUSCULAR HGB CONC 31.6 g/dl (32.0-36.5); MEAN CORPUSCULAR VOLUME 91.4 fl (80.0-96.0); PLATELET COUNT, AUTOMATED 290 10^3/uL (150-450); RED BLOOD COUNT 3.74 10^6/uL (4.30-6.10); WHITE BLOOD COUNT 6.1 10^3/uL (4.0-10.0)
[2018-10-01 06:21] LABS: INR 1.04; PROTHROMBIN TIME 13.7 SECONDS (12.1-14.4)
[2018-10-01 06:22] LABS: BLOOD UREA NITROGEN 10 MG/DL (7-18); CALCIUM LEVEL 8.9 MG/DL (8.5-10.1); CARBON DIOXIDE LEVEL 27 MEQ/L (21-32); CHLORIDE LEVEL 106 MEQ/L (98-107); CREATININE FOR GFR 0.91 MG/DL (0.70-1.30); GLOMERULAR FILTRATION RATE > 60.0 (>60); GLUCOSE, FASTING 92 MG/DL (70-100); POTASSIUM SERUM 4.1 MEQ/L (3.5-5.1); SODIUM LEVEL 139 MEQ/L (136-145)
[2018-10-01] MEDS: ADVAIR HFA 115/21MCG INHALER INH SCH (07:51)
[2018-10-01] MEDS: MULTIVITAMINS/MINERALS THERAP 1 TAB PO SCH (08:54)
[2018-10-01] MEDS: OMEPRAZOLE 20 MG CAP PO SCH (08:54)
[2018-10-01] MEDS: KETOCONAZOLE 2% CREAM TOP SCH (08:55)
[2018-10-01] MEDS: tiZANidine 4 MG TAB PO SCH (08:55)
[2018-10-01] MEDS: FOLIC ACID 1 MG TAB PO SCH (08:55)
--- NOTE | 2018-10-01 11:37 | IPNPDOC ---
Text Note Date of Service The patient was seen on 10/01/18. NOTE Subjective: Patient is a 37-year-old male who initially presented with a left gluteal hematoma. This is been improving. Patient also had a supratherapeutic INR upon admission. His INR is now in normal limits and repeat anticoagulation has been restarted. Patient is doing otherwise well. Patient has cleared physical therapy and has been able to walk around the hallways with his walker with relatively little pain. Patient was asking if he would be able to be discharged sooner rather than later. Review of systems General: Patient denies fevers HEENT: Patient denies headaches Cardiovascular: Patient denies chest pain Respiratory: Patient denies shortness of breath, cough GI: Patient denies abdominal pain, nausea, vomiting, diarrhea : Patient denies pain or difficulty with urination Neurological: Patient denies numbness or tingling in extremities Extremities: Bruising and tenderness over the left outer hip. Objective: Vitals: (see below) General: No acute distress, laying comfortably in bed. HEENT: Normocephalic, atraumatic, moist mucous membranes. Neck: No JVD or lymphadenopathy Cardiac: RRR, No murmurs Pulm: Clear to auscultation b/l. No wheezing, rhonchi Abd: NT/ND + BS Ext: Large area of ecchymosis and swelling which is decreasing in size on the left hip and outer thigh. This is silver lap machine tender to the touch in certain areas. Dorsalis pedis and posterior tibial pulses are equal bilaterally Labs (see below) Images: No new imaging has been performed Assessment/Plan 1. Nontraumatic left gluteal hematoma secondary to Coumadin use in the setting of a supratherapeutic INR. Patient is improving. Patient is on 10 mg of Coumadin daily. 2. Supratherapeutic INR. INR is normal. INR today was 1.04 which is decreased from 1.11 yesterday. We will continue the 10 mg of Coumadin and continue to monitor. 3. Alcohol withdrawal. Patient has no adverse effects at this time. Patient has not been on medication for 4 days. 4. Her lactic acidosis. Patient is off antibiotics and his symptoms have resolved. 5. Tachycardia. This is been improved and he is no longer dealing with large increases in heart rate while walking around. 6. 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 Patient is status post IVC filter placement. We'll continue Coumadin and follow INRs. DVT prophy: IVC filter and Coumadin Dispo: Pending set up for close follow-up of INR as outpatient. Plan is to discharge tomorrow. VS,Fishbone, I+O VS, Fishbone, I+O Laboratory Tests 10/01/18 05:30 Red Blood Count 3.74 L, Mean Corpuscular Volume 91.4, Mean Corpuscular Hemoglobin 28.9, Mean Corpuscular Hemoglobin Concent 31.6 L, Red Cell Distribution Width 17.2 H, Calcium Level 8.9 Vital Signs Date Time Temp Pulse Resp B/P (MAP) Pulse Ox O2 Delivery O2 Flow Rate FiO2 10/01/18 06:00 98.2 81 18 155/78 (103) 95 I&O- Last 24 Hours up to 6 AM 10/01/18 06:00 Intake Total 1710 ml Output Total 0 ml Balance 1710 ml GME ATTESTATION GME ATTESTATION My faculty preceptor for this patient encounter was physically present during the encounter and was fully available. All aspects of the patient interview, examination, medical decision making process, and medical care plan development were reviewed and approved by the faculty preceptor. The faculty preceptor is aware and concurs with the plan as stated in the body of this note and will attest to such by his/her cosignature. JOHN REAL DO Oct 01, 2018 11:37
[2018-10-01] MEDS ORDERED: COUM10TA PO (11:55)
--- NOTE | 2018-10-01 17:17 | DS.PDOC ---
Discharge Summary General Date of Admission Sep 24, 2018 at 15:18 Date of Discharge 10/01/18 Primary Care Physician: Ruth Hopkins Attending Physician: QUIN MCRAE MD Specialist/Consultants Involve: CARLENE YEE MD Specialist/Consultants Involve Danita Andrew Discharge Summary PROCEDURES PERFORMED DURING STAY: IVC filter placement. ADMITTING/DISCHARGE DIAGNOSES: 1. Nontraumatic left gluteal hematoma secondary to Coumadin use in the setting of a supratherapeutic INR 2. Supratherapeutic INR 3. Acute alcohol withdrawal 4. Fever and lactic acidosis 5. Tachycardia 6. 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 Once in the emergency room patient was found to have a supratherapeutic INR of 7.74. On a CT of the abdomen and pelvis a gluteal hematoma was found. During patient's hospitalization, this became evident on physical exam with ecchymosis forming on the left hip. Patient was given 2 units of fresh frozen plasma to reverse his INR. Patient's INR became within the normal range the next day. An ultrasound was performed on the patient's hematoma and found no drainable fluid collection. Patient was found to be clinically and alcohol withdrawal. Patient admitted to drinking 4-6 beers a day for some time. Patient was put on CIWA protocol. Patient was put on oxazepam 10 mg every 8 hours for a few days. Patient also developed tachycardia especially while working with physical therapy. Patient's resting heart rate for some time was in the 100-110 range with his heart rate increasing to 160-170 range while work with physical therapy. Throughout patient's hospitalization this did improve as well as the patient's pain. On 09/30/2018, patient cleared physical therapy. Coumadin to be restarted on Sunday however, patient's INR still remained low. His dose was increased to 10 mg on 09/30/2018. Patient's INR decreased to 1.04 overnight. On 10/01/2018, patient was deemed safe for discharge as long as close follow-up had been set up with primary care physician. Primary care was contacted and close follow-up was set up. Patient was deemed ready for discharge. DISCHARGE MEDICATIONS: Please see below. ALLERGIES: Please see below. PHYSICAL EXAMINATION ON DISCHARGE: Vitals: (see below) General: No acute distress, laying comfortably in bed. HEENT: Moist mucous membranes. Neck: No JVD or lymphadenopathy Cardiac: RRR, No murmurs Pulm: Clear to auscultation b/l. No wheezing, rhonchi Abd: NT/ND + BS Ext: Large area of ecchymosis over the left hip extending down the left outer thigh. There are areas of tenderness to palpation. LABORATORY DATA: Please see below. IMAGING: A left lower extremity duplex venous ultrasound performed on 09/23/2018 showed changes consistent with chronic venous thrombosis in the left femoral vein and left popliteal vein, unchanged from prior study. No evidence of acute venous thrombosis left lower extremity. A single AP view of the pelvis performed on 09/23/2018 showed no acute fractures. An x-ray of the left hip performed on 09/23/2018 showed no acute fracture or subluxation. A chest x-ray performed on 09/23/2018 showed linear platelike atelectasis versus fibrosis in the left mid lung zone. Otherwise negative. A CT of the abdomen and pelvis with IV contrast only performed on 09/23/2018 showed a hematoma in the left gluteus muscle. A lumbar spine MRI with and without IV gadolinium performed on 09/23/2018 showed no abnormal intraspinal hematoma or other fluid collection. Unremarkable MRI study lumbar spine without and with IV gadolinium. An ultrasound of the left gluteal area performed on 09/24/2018 showed no suitable fluid collection for drainage seen. An ultrasound of the abdomen performed on 09/24/2017 showed evidence of fatty infiltration of the liver, otherwise negative right upper quadrant sonography. PROGNOSIS: Good ACTIVITY: As tolerated. DIET: Regular DISCHARGE PLAN/DISPOSITION: Discharge home with close INR follow-up DISCHARGE INSTRUCTIONS: 1. Have a daily lab draws for INR is and follow-up with primary care as milo parker. DISCHARGE CONDITION: Stable. TIME SPENT ON DISCHARGE: Greater than 30 minutes. Vital Signs/I&Os Vital Signs Date Time Temp Pulse Resp B/P (MAP) Pulse Ox O2 Delivery O2 Flow Rate FiO2 10/01/18 06:00 98.2 81 18 155/78 (103) 95 I&O- Last 24 Hours up to 6 AM 10/01/18 06:00 Intake Total 1710 ml Output Total 0 ml Balance 1710 ml Laboratory Data Labs 24H Laboratory Tests 2 10/01/18 05:30: Nucleated Red Blood Cells % (auto) 0.0, Prothrombin Time 13.7, Prothromb Time International Ratio 1.04, Anion Gap 6L, Glomerular Filtration Rate > 60.0, Blood Urea Nitrogen 10, Creatinine 0.91, Sodium Level 139, Potassium Level 4.1, Chloride Level 106, Carbon Dioxide Level 27, Calcium Level 8.9 CBC/BMP Laboratory Tests 10/01/18 05:30 Red Blood Count 3.74 L, Mean Corpuscular Volume 91.4, Mean Corpuscular Hemoglobin 28.9, Mean Corpuscular Hemoglobin Concent 31.6 L, Red Cell Distribution Width 17.2 H, Calcium Level 8.9 Microbiology Microbiology 09/24/18 Blood Culture - Final, Complete NO GROWTH AFTER 5 DAYS 09/24/18 Blood Culture - Final, Complete NO GROWTH AFTER 5 DAYS Discharge Medications Scheduled Fluticasone/Vilanterol (Breo Ellipta 100-25 Mcg/INH) 1 Inh Inh, 1 PUFF INH DAILY, (Reported) Omeprazole (Omeprazole) 40 Mg Cap, 40 MG PO DAILY, (Reported) Warfarin Sod (Coumadin) 10 Mg Tab, 1 TAB PO DAILY Scheduled PRN Albuterol Sulfate (Ventolin Hfa) 108 Mcg/Act Aer, 2 PUFFS INH Q4H PRN for SHORTNESS OF BREATH, (Reported) Allergies Coded Allergies: No Known Allergies (Unverified , 10/29/14) GME ATTESTATION GME ATTESTATION My faculty preceptor for this patient encounter was physically present during the encounter and was fully available. All aspects of the patient interview, examination, medical decision making process, and medical care plan development were reviewed and approved by the faculty preceptor. The faculty preceptor is aw are and concurs with the plan as stated in the body of this note and will attest to such by his/her cosignature. ATTENDING NOTE I have both independently examined this patient as well as reviewed the note I have discussed in detail the findings and plan of treatment as documented in the note. I will continue to follow the patient and offer further guidance to the patients care as necessary during this hospital stay. JOHN Minor MD, DO Oct 01, 2018 17:16 QUIN MCRAE MD Oct 02, 2018 19:14
== END 2018-10-01 12:36 | disposition home or self-care (01) | DRG 661 ==
LOC: M ED 08:53 → M ED INP 14:16 → M ICU 16:19 → M PCU 09-24 03:06 → OBSVTOIN 09-24 15:18 → M MSPAV 09-28 17:32
PROVIDERS: ADMIT Internal Medicine; ATTEND Hospitalist
PROC: 06V03DZ Restriction of Inferior Vena Cava with Intraluminal Device, Percutaneous Approach (ICD-10-PCS; principal; 2018-09-24)
DX: D68.32 Hemorrhagic disorder due to extrinsic circulating anticoagulants (principal); D68.2 Hereditary deficiency of other clotting factors; E87.2 Acidosis; F10.239 Alcohol dependence with withdrawal, unspecified; R50.9 Fever, unspecified; M79.81 Nontraumatic hematoma of soft tissue; R00.0 Tachycardia, unspecified; J45.909 Unspecified asthma, uncomplicated; Z86.718 Personal history of other venous thrombosis and embolism; Z79.01 Long term (current) use of anticoagulants; Z79.899 Other long term (current) drug therapy

== ENCOUNTER → 2018-10-02 | Outpatient (CLI) | payer MEDICAID ==
[~2018-10-02] MED LIST changes: +COUM10TA PO; +WARF-21 PO; +WARF-22 PO
[2018-10-02 10:36] LABS: INR 1.15; PROTHROMBIN TIME 14.9 SECONDS (12.1-14.4)
== END ==
LOC: M WUC 08:26
PROVIDERS: ATTEND Hospitalist
DX: Z79.01 Long term (current) use of anticoagulants (principal)

== ENCOUNTER → 2018-10-03 | Outpatient (CLI) | payer MEDICAID ==
[2018-10-03 13:41] LABS: INR 1.3; PROTHROMBIN TIME 16.4 SECONDS (12.1-14.4)
== END ==
LOC: M WUC 09:59
PROVIDERS: ATTEND Hospitalist
DX: Z51.81 Encounter for therapeutic drug level monitoring (principal); Z79.01 Long term (current) use of anticoagulants

== ENCOUNTER → 2018-10-04 | Outpatient (CLI) | payer MEDICAID ==
[2018-10-04 09:36] LABS: INR 1.44; PROTHROMBIN TIME 17.8 SECONDS (12.1-14.4)
== END ==
LOC: M WUC 07:59
PROVIDERS: ATTEND Hospitalist
DX: Z51.81 Encounter for therapeutic drug level monitoring (principal); Z79.01 Long term (current) use of anticoagulants

== ENCOUNTER → 2018-10-05 | Outpatient (CLI) | payer MEDICAID ==
[2018-10-05 14:03] LABS: INR 1.56; PROTHROMBIN TIME 18.9 SECONDS (12.1-14.4)
== END ==
LOC: M WUC 09:41
PROVIDERS: ATTEND Hospitalist
DX: Z79.01 Long term (current) use of anticoagulants (principal)

== ENCOUNTER → 2018-10-09 | Outpatient (CLI) | payer MEDICAID ==
[2018-10-09 09:45] LABS: INR 2.39; PROTHROMBIN TIME 26.6 SECONDS (12.1-14.4)
== END ==
LOC: M WUC 08:00
PROVIDERS: ATTEND Hospitalist
DX: Z51.81 Encounter for therapeutic drug level monitoring (principal); Z79.01 Long term (current) use of anticoagulants

== ENCOUNTER → 2018-10-10 | Outpatient (CLI) | payer MEDICAID ==
[2018-10-10 10:03] LABS: INR 2.58; PROTHROMBIN TIME 28.2 SECONDS (12.1-14.4)
== END ==
LOC: M WUC 08:19
PROVIDERS: ATTEND Hospitalist
DX: Z51.81 Encounter for therapeutic drug level monitoring (principal); Z79.01 Long term (current) use of anticoagulants

== ENCOUNTER → 2018-10-22 | Outpatient (REF) | payer OTHER ==
[~2018-10-22] MED LIST changes: +ASPI-1 PO; -ASPI325T PO
[2018-10-22 12:56] LABS: INR 9.82; PROTHROMBIN TIME 81.5 SECONDS (12.1-14.4)
== END ==
LOC: M SFHCPLAZ 09:11
PROVIDERS: ATTEND Nurse Practitioner Adult Health
DX: Z51.81 Encounter for therapeutic drug level monitoring (principal)

== ENCOUNTER → 2018-12-09 | Outpatient (REF) | payer OTHER ==
[2018-12-09 10:15] LABS: EOS # 0.3 10^3/uL (0.0-0.50); EOS % 10.5 % (0.0-3.0); HEMOGLOBIN 11.8 g/dl (13.5-17.5); LYMPH # 0.9 10^3/uL (1.5-4.5); LYMPH % 31.7 % (24.0-44.0); MEAN CORPUSCULAR HEMOGLOBIN 26.8 pg (27.0-33.0); MEAN CORPUSCULAR HGB CONC 31.1 g/dl (32.0-36.5); MEAN CORPUSCULAR VOLUME 86.2 fl (80.0-96.0); MONO # 0.4 10^3/uL (0.0-0.8); MONO % 13.9 % (0.0-5.0); NEUTROPHILS # 1.2 10^3/uL (1.8-7.7); NEUTROPHILS % 42.6 % (36.0-66.0); PLATELET COUNT, AUTOMATED 179 10^3/uL (150-450); RED BLOOD COUNT 4.41 10^6/uL (4.30-6.10); WHITE BLOOD COUNT 2.9 10^3/uL (4.0-10.0)
[2018-12-09 10:26] LABS: PROTHROMBIN TIME 58.8 SECONDS (12.1-14.4)
[2018-12-09 10:48] LABS: ALT/SGPT 217 U/L (12-78); BILIRUBIN,TOTAL 0.6 MG/DL (0.2-1.0); BLOOD UREA NITROGEN 4 MG/DL (7-18); CARBON DIOXIDE LEVEL 27 MEQ/L (21-32); CHLORIDE LEVEL 106 MEQ/L (98-107); CREATININE FOR GFR 0.87 MG/DL (0.70-1.30); FERRITIN 156 NG/ML (26-388); GLOMERULAR FILTRATION RATE > 60.0 (>60); GLUCOSE, FASTING 98 MG/DL (70-100); IRON (FE) 36 UG/DL (65-175); PERCENT SATURATION 8.6 % (19.7-50.0); POTASSIUM SERUM 3.8 MEQ/L (3.5-5.1); SODIUM LEVEL 141 MEQ/L (136-145); TOTAL IRON BINDING CAPACITY 421 UG/DL (250-450); TOTAL PROTEIN 8.2 GM/DL (6.4-8.2)
[2018-12-09 11:29] LABS: INR 6.51
[2018-12-11 00:08] LABS: Lyme Disease IgG/IgM Antibodie <0.91 ISR (0.00-0.90); Lyme Disease IgM Ab Quantitati <0.80 index (0.00-0.79)
== END ==
LOC: M SFHCPLAZ 08:20
PROVIDERS: ATTEND Nurse Practitioner Adult Health
DX: Z51.81 Encounter for therapeutic drug level monitoring (principal); R21 Rash and other nonspecific skin eruption; Z79.01 Long term (current) use of anticoagulants; T14.8XXA Other injury of unspecified body region, initial encounter; Y92.9 Unspecified place or not applicable

== ENCOUNTER → 2019-05-15 | Outpatient (CLI) | payer OTHER ==
[~2019-05-15] MED LIST changes: -OMEP40CA2 PO; +OMEP40CA97 PO
--- NOTE | 2019-05-15 11:46 | REP ---
LEFT LOWER EXTREMITY DUPLEX DOPPLER VENOUS ULTRASOUND: Real-time compression and duplex Doppler interrogation of the left lower extremity deep venous system is performed and compared to a prior study of 09/23/2018. There is again nonocclusive thrombus seen throughout the left superficial femoral vein and popliteal vein similar to the prior study. Once again there is no deep vein thrombosis in the left common femoral vein. IMPRESSION: Similar findings compared to the prior study of 09/23/2018. There is again partial thrombosis of the left superficial femoral vein diffusely as well as a left popliteal vein appearing quite similar to the prior study. Electronically Signed by Ben Ortiz MD 05/17/2019 10:20 A
== END ==
LOC: M RAD 10:24
PROVIDERS: ATTEND Internal Medicine Medical Oncology
DX: D68.59 Other primary thrombophilia (principal)

== ENCOUNTER → 2019-05-20 | Outpatient (POV) | payer OTHER ==
[~2019-05-20] VITALS: Ht 180.3 cm; Wt 97.7 kg
[2019-05-20 08:40] VITALS: BP 155/82
--- NOTE | 2019-05-20 09:37 | REP ---
Clinical: Filter placement. Technique: Two supine views of the abdomen and pelvis. Findings: IVC filter is identified overlying the right side of the L2 and L3 vertebral bodies seemingly satisfactory position. Bowel gas pattern is nonspecific. No organomegaly. Skeletal structures are intact. Impression: IVC filter in seemingly satisfactory position. Electronically Signed by Rusty Wang MD 05/20/2019 09:30 A
--- NOTE | 2019-05-20 09:40 | IRCOV ---
[facility] IR Consult Office Visit IR Consult Office Visit DATE: May 20, 2019 REASON FOR CONSULTATION/CHIEF COMPLAINT: Recurrent left lower extremity DVTs. Factor V leiden. HISTORY OF PRESENT ILLNESS: 38-year-old male with factor 5 Leiden mutation, presents with left lower extremity swelling, skin changes, skin breakdown. Patient has had 3 DVTs in the left lower extremity, first one happened 16 years ago. He was put on Xarelto. Recurrent DVT happened 4 years ago on Xarelto. He was then changed to Coumadin. Then a third DVT happened on Coumadin, but patient states at the time he was off Coumadin. No history of pulmonary emboli. He states a filter was placed 1 year ago. No family history of DVTs. No chest pain, shortness of breath, heart attacks or strokes. He complains of pain in the left leg and swelling which is worse at the end of the day and improves after legs are elevated overnight. He does wear compression stockings. He's to see wound care for continuous skin breakdown on the left lower extremity. No intermittent claudication. No rest pain. No history of cold leg. ALLERGIES: Please see below. HOME MEDICATIONS: Please see below. PAST MEDICAL HISTORY: 1. Asthma 2. Heterozygous factor 5 Leiden mutation PAST SURGICAL HISTORY: 1. Noncontributory FAMILY HISTORY: Noncontributory. SOCIAL HISTORY: Nonsmoker. Denies alcohol or drugs. REVIEW OF SYSTEMS: Otherwise negative PHYSICAL EXAMINATION: VITAL SIGNS: Please see below. GENERAL APPEARANCE: Appears well. Comfortable at rest. HEENT: No scleral icterus. RESPIRATORY: Symmetric breath sounds. CARDIOVASCULAR: Normal rate. ABDOMEN: Soft nontender. EXTREMITIES: Left lower extremity: Edema to the knees. Skin discoloration. Reticular veins. Varicose veins posterior to the knee and along the calf. Lipodermatosclerosis. Stasis dermatitis. No large ulcers. Warm to touch. Popliteal pulse 2+ DP + Right lower extremity: Mild edema to the ankle. Reticular veins. Warm to touch. No bulging varicose veins. Slight bluish discoloration. No Lipodermatosclerosis. No ulcers. NEUROLOGICAL: Alert and oriented. PSYCHIATRIC: Appropriate to circumstance. LABORATORY DATA: 12/09/2018 hemoglobin 11.8 WBC 2.9 platelets 179 sodium 141 potassium 3.8 BUNs 4 creatinine 0.87 total bilirubin 0.6 AST 286 AL T2-1-7 ALP 85 INR 6.5 Imaging: I personally reviewed the most recent ultrasound left lower extremity from April 2019. Patent left common, femoral vein, and popliteal vein. ASSESSMENT/PLAN: 38 male with fact 5 Leiden, recurrent left lower extremity DVTs now with chronic left lower extremity venous hypertension. I think patient would benefit from venogram to look for May Thurner and intervention as appropriate. 2. No imaging post filter placement to confirm location. I will order a KUB to confirm filter placement and location. We discussed the risks and benefits of the procedure. Patient would like to proceed. We'll schedule the patient for the procedure to be done under moderate sedation. I spent 30 minutes in consultation with the patient. Thank you for this referral. Allergies Coded Allergies: No Known Allergies (Unverified , 10/29/14) Home Medications Scheduled Fluticasone/Vilanterol (Breo Ellipta 100-25 Mcg INH), 1 PUFF INH DAILY, (Reported) Omeprazole (Omeprazole), 40 MG PO DAILY, (Reported) Warfarin Sodium (Coumadin), 1 TAB PO DAILY Scheduled PRN Albuterol Sulfate (Ventolin Hfa), 2 PUFFS INH Q4H PRN for SHORTNESS OF BREATH, (Reported) VS, I&O, 24H, Fishbone Vital Signs/I&O Vital Signs Date Time Temp Pulse Resp B/P (MAP) Pulse Ox O2 Delivery O2 Flow Rate FiO2 05/20/19 08:40 98.4 108 18 155/82 (106) 98 Room Air ROBBIN LIZ MD May 20, 2019 09:40
== END ==
LOC: M IRPOV 08:34
PROVIDERS: ATTEND Radiology Diagnostic Radiology
DX: I87.392 Chronic venous hypertension (idiopathic) with other complications of left lower extremity (principal); I83.12 Varicose veins of left lower extremity with inflammation; I87.2 Venous insufficiency (chronic) (peripheral); D68.51 Activated protein C resistance; J45.909 Unspecified asthma, uncomplicated; Z86.718 Personal history of other venous thrombosis and embolism; Z79.01 Long term (current) use of anticoagulants
CPT/HCPCS: 74018; G0463

== ENCOUNTER → 2019-06-12 | Outpatient (CLI) | payer OTHER ==
[~2019-06-12] MED LIST changes: +HEPARIN 1,000 UNITS/ML 10ML VIAL (FOR RADIOLOGY& DIALYSIS ONLY) As Ordered ONE; +ISOVUE-300 61% 50ML VIAL (Q9967) As Ordered ONE; +LIDOCAINE 1% MDV 20ML VIAL As Ordered ONE; +MIDAZOLAM INJ 2 MG/2 ML VIAL (J2250) As Ordered ONE; +PROMETHAZINE INJ 25 MG/ML VIAL (J2550) As Ordered ONE; +diphenhydrAMINE INJ 50MG/ML VIAL (J1200) As Ordered ONE; +fentaNYL 100 MCG/2 ML INJECTION (J3010) As Ordered ONE
--- NOTE | 2019-06-12 07:21 | IRHP ---
[facility] IR Pre-Procedure H & P General Date of Service: Jun 12, 2019 Procedure: Same Day Surgery Interval History and Physical I have seen the patient and reviewed last H & P performed within 30 days. There is no significant interval change. History of Present Illness Chief Complaint The patient is a 38-year-old male admitted with a reason for visit of November. PRE-PROCEDURE DIAGNOSIS: novemberer HEART: normal rate. LUNGS: normal breathing at rest. ASA Classification ASA Classification: II-Mild systemic disease Mallampati Score: II NPO: Yes Problems with prior sedation: No Obstructive Sleep Apnea: No Plan moderate sedation Allergies Coded Allergies: No Known Allergies (Unverified , 10/29/14) Home Medications Scheduled Fluticasone/Vilanterol (Breo Ellipta 100-25 Mcg INH), 1 PUFF INH DAILY, (Reported) Omeprazole (Omeprazole), 40 MG PO DAILY, (Reported) Warfarin Sodium (Coumadin), 1 TAB PO DAILY Scheduled PRN Albuterol Sulfate (Ventolin Hfa), 2 PUFFS INH Q4H PRN for SHORTNESS OF BREATH, (Reported) VS, I&O, 24H, Fishbone Vital Signs/I&O Vital Signs Date Time Temp Pulse Resp B/P (MAP) Pulse Ox O2 Delivery O2 Flow Rate FiO2 06/12/19 06:51 98.7 92 16 91 Room Air ROBBIN LIZ MD Jun 12, 2019 07:21
[2019-06-12 11:45] VITALS: BP 144/84
--- NOTE | 2019-06-12 14:31 | POST-OPPD ---
Postoperative Procedure Note Date Of Procedure: Jun 12, 2019 Time Of Procedure: 10:57 PREOPERATIVE DIAGNOSIS: lle dvt recurrent possible may thurner POSTOPERATIVE DIAGNOSIS: same FINDINGS: tortuous and patulous left common iliac vein without hemodynamically significant stenosis or pressure gradient. PROCEDURE: venogram. angioplasty and pressures. SURGEON: celena ANESTHESIA: mod sed ESTIMATED BLOOD LOSS: < 15 ml COMPLICATIONS: none POSTOPERATIVE CONDITION: stable ROBBIN LIZ MD Jun 12, 2019 14:31
--- NOTE | 2019-06-13 14:12 | REP ---
IR left iliac venography. IR foreign body retrieval. IR ultrasound right neck. IR ultrasound right groin. IR ultrasound guided right internal jugular vein access. IR ultrasound guided right common femoral vein access. IR moderate sedation. 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 Physician: Dr. Freedman. Procedure: The patient was advised of the benefits, risks and alternatives of the procedure and informed consent was obtained. The time-out was performed with verification of the patient's name MRN, site of procedure and type of procedure to be performed. The patient was positioned in the supine position on the angiographic table. The site was prepped and draped in the usual sterile fashion. Moderate sedation was performed by the physician including the presence of an independent trained observer who assisted in monitoring the patient's level of consciousness and physiologic status. Following the administration of fentanyl and Versed, the physician spent 90 minutes of continuous face to face time with the patient. A scout professional sports radiograph reveals an inferior vena cava filter in expected location. Ultrasound of the right neck demonstrates a patent and compressible right internal jugular vein. A micropuncture needle was used under ultrasound guidance to access the right internal jugular vein. An 018 wire was advanced into the inferior vena cava vein and the micropuncture needle was exchanged for a micro sheath. The wire and inner stiffener were removed. An Amplatz wire was advanced through the micro sheath under fluoroscopy guidance, down to the inferior vena cava. The sheath was exchanged for a long vascular sheath. A glide cath was advanced through the vascular sheath over the wire under fluoroscopy guidance into the peripheral inferior vena cava. A venogram was performed and this demonstrates patent normal-caliber right common iliac vein and patent normal-caliber inferior vena cava. Normal inflow from the left common iliac vein. The wire was advanced through the glide cath but could not be passed through. The glide cath was retracted but met resistance. Upon further attempts to remove the glide cath, the distal tip of the glide cath broke in the inferior vena cava. Therefore, right common femoral vein access was required for foreign body retrieval. Ultrasound of the right groin demonstrates a patent and compressible right common femoral vein. A micropuncture needle was used under ultrasound guidance to access the right common femoral vein. An 018 wire was advanced into the inferior vena cava vein and the micropuncture needle was exchanged for a micro sheath. The wire and inner stiffener were removed. An Amplatz wire was advanced through the micro sheath under fluoroscopy guidance, up into the inferior vena cava. The sheath was exchanged for a 7-Camb[place] sheath. The sheath was advanced over the wire under fluoroscopy guidance to the tip of the catheter fragment. An Ensnare device was advanced through the sheath and used to snare the catheter fragment in the inferior vena cava. The catheter fragment was removed in its entirety, under fluoroscopy guidance. A [place] catheter was advanced over the wire through the internal jugular vein down to the left iliac vein. A venogram was performed which demonstrates patulous distension of the left iliac vein just peripheral to the bifurcation. The left iliac vein appears tortuous at the level of the SI joint. A 12 mm [place] balloon was advanced over the wire to the area of left iliac vein tortuosity. Upon inflation of the balloon there appear to be no significant waist on the balloon. With minimal 1mmHg pressure, the balloon inflated to full size, suggesting no hemodynamically significant stenosis in this region. Therefore pressure measurements were obtained distal and proximal in the left common iliac vein. There was no significant pressure gradient, 3 mmHg beyond and proximal to the area of tortuosity and patulous vein. Given these findings together it was decided that there was no hemodynamically significant stenosis of the left common iliac vein. Thus the patient was not stented. Catheter wire and sheath were removed, pressure held and hemostasis achieved. A sterile dressing was applied to the right neck and right groin. The patient tolerated the procedure well and was returned to PRU in stable condition. EBL: Less than 5 ml. Complications: Catheter fracture in the inferior vena cava. Successful endovascular catheter fragment removal. Impression: Left common iliac venogram demonstrates tortuosity and patulous nature of the left common iliac vein without hemodynamically significant stenosis upon angioplasty or any significant pressure gradient. No stenting was indicated. Thank you this referral. Electronically Signed by Laila Freedman MD 06/13/2019 02:10 P
== END ==
LOC: M IRPRO 06:37
PROVIDERS: ATTEND Radiology Diagnostic Radiology
DX: I82.502 Chronic embolism and thrombosis of unspecified deep veins of left lower extremity (principal); I97.88 Other intraoperative complications of the circulatory system, not elsewhere classified
CPT/HCPCS: 36010; 36011; 37197; 37248; 75820; 75825; 99152; 99153; C1725; C1769; C1887; C1894; J1200; J2250; J3010; Q9967

== ENCOUNTER → 2019-08-12 | Outpatient (REF) | payer OTHER ==
[~2019-08-12] MED LIST changes: -HEPARIN 1,000 UNITS/ML 10ML VIAL (FOR RADIOLOGY& DIALYSIS ONLY) As Ordered ONE; -ISOVUE-300 61% 50ML VIAL (Q9967) As Ordered ONE; -LIDOCAINE 1% MDV 20ML VIAL As Ordered ONE; -MIDAZOLAM INJ 2 MG/2 ML VIAL (J2250) As Ordered ONE; -PROMETHAZINE INJ 25 MG/ML VIAL (J2550) As Ordered ONE; -diphenhydrAMINE INJ 50MG/ML VIAL (J1200) As Ordered ONE; -fentaNYL 100 MCG/2 ML INJECTION (J3010) As Ordered ONE
[2019-08-12 10:44] LABS: HEMATOCRIT 45.9 % (42.0-52.0); HEMOGLOBIN 14.2 g/dl (13.5-17.5); MEAN CORPUSCULAR HEMOGLOBIN 28.4 pg (27.0-33.0); MEAN CORPUSCULAR HGB CONC 30.9 g/dl (32.0-36.5); MEAN CORPUSCULAR VOLUME 91.8 fl (80.0-96.0); PLATELET COUNT, AUTOMATED 185 10^3/uL (150-450); WHITE BLOOD COUNT 3.4 10^3/uL (4.0-10.0)
[2019-08-12 10:56] LABS: INR 2.29; PROTHROMBIN TIME 25.1 SECONDS (11.8-14.0)
[2019-08-12 12:02] LABS: ALT/SGPT 343 U/L (12-78); BILIRUBIN,TOTAL 0.5 MG/DL (0.2-1.0); BLOOD UREA NITROGEN 5 MG/DL (7-18); CALCIUM LEVEL 9.4 MG/DL (8.5-10.1); CARBON DIOXIDE LEVEL 28 MEQ/L (21-32); CHOLESTEROL LEVEL 260 MG/DL (<200); CHOLESTEROL RISK RATIO 3.058 (<5); FERRITIN 77 NG/ML (26-388); GLOMERULAR FILTRATION RATE > 60.0 (>60); GLUCOSE, FASTING 84 MG/DL (70-100); HDL CHOLESTEROL 85 MG/DL (>40); IRON (FE) 55 UG/DL (65-175); LDL CHOLESTEROL 153 MG/DL (<100); NON-HDL-C 175 MG/DL; PERCENT SATURATION 11.4 % (19.7-50.0); TOTAL IRON BINDING CAPACITY 483 UG/DL (250-450); TOTAL PROTEIN 8.5 GM/DL (6.4-8.2); TRIGLYCERIDES LEVEL 110 MG/DL (<150)
[2019-08-12 12:10] LABS: CHLORIDE LEVEL 106 MEQ/L (98-107); POTASSIUM SERUM 4.3 MEQ/L (3.5-5.1); SODIUM LEVEL 142 MEQ/L (136-145)
== END ==
LOC: M SFHCPLAZ 09:13
PROVIDERS: ATTEND Nurse Practitioner Adult Health
DX: D68.51 Activated protein C resistance (principal); Z51.81 Encounter for therapeutic drug level monitoring; I82.409 Acute embolism and thrombosis of unspecified deep veins of unspecified lower extremity; K76.0 Fatty (change of) liver, not elsewhere classified; D64.9 Anemia, unspecified; Z13.220 Encounter for screening for lipoid disorders

== ENCOUNTER → 2019-11-26 | Outpatient (CLI) | payer OTHER ==
[~2019-11-26] MED LIST changes: +BREO1INH3 INH; +ENOX40IN3 SC; +FLUT1BLS5 INH
[2019-11-26 12:13] LABS: IRON (FE) 232 UG/DL (65-175); PERCENT SATURATION 49.6 % (19.7-50.0); TOTAL IRON BINDING CAPACITY 468 UG/DL (250-450)
[2019-11-26 12:21] LABS: HEPATITIS B SURFACE ANTIGEN NEGATIVE (NEGATIVE)
[2019-11-26 12:48] LABS: HEPATITIS B CORE ANTIBODY IGM NEGATIVE (NEGATIVE); HEPATITIS C VIRUS ABY INDEX 0.1 INDEX (<0.8)
[2019-11-26 12:51] LABS: HEPATITIS A ANTIBODY IGM NEGATIVE (NEGATIVE)
[2019-11-29 00:06] LABS: ANCA-ATYPICAL <1:20 titer (Neg:<1:20); ANTI-MITOCHONDRIAL ANTIBODY <20.0 Units (0.0-20.0); ANTINUCLEAR ANTIBODIES DIRECT Negative (Negative); CERULOPLASMIN 23.3 mg/dL (16.0-31.0); CYTOPLASMIC NEUTROP AB ANCA-C <1:20 titer (Neg:<1:20); LIVER-KIDNEY MICROSOMAL ABY <20.1 Units (0.0-20.0); PERINUCLEAR AB ANCA-P <1:20 titer (Neg:<1:20)
== END ==
LOC: M WUC 09:43
PROVIDERS: ATTEND Internal Medicine Gastroenterology
DX: K62.5 Hemorrhage of anus and rectum (principal)

== ENCOUNTER → 2019-11-26 | Outpatient (CLI) | payer OTHER | LOC: M LABSMTC 10:07 | PROVIDERS: ATTEND Anesthesiology | DX: Z01.818 Encounter for other preprocedural examination (principal); Z11.59 Encounter for screening for other viral diseases ==

== ENCOUNTER 2019-11-28 06:59 | Day surgery (SDC) | payer OTHER ==
[~2019-11-28] VITALS: Ht 180.3 cm; Wt 97.1 kg
[2019-11-28] MEDS ORDERED: NS 1,000 ML IV ONE (07:00)
[2019-11-28] MEDS ORDERED: LIDOCAINE 2% 100MG/5ML SDV (FOR ANES.) As Ordered ONE (07:19)
[2019-11-28] MEDS ORDERED: propofoL 200 MG/20 ML VIAL As Ordered ONE ×2 (07:19→08:03)
--- NOTE | 2019-11-28 08:13 | ROOR ---
Patient Name: Mckinley Rodriguez Procedure Date: 11/28/2019 7:50 AM Date of : 1980 Age: 39 Room: [facility] Gender: Male Note Status: Finalized Procedure: Colonoscopy Indications: Hematochezia Providers: Сергей FLETCHER MD Referring MD: Ruth CARSON NP Requesting Provider: Medicines: Monitored Anesthesia Care Complications: No immediate complications. Procedure: Pre-Anesthesia Assessment: - The heart rate, respiratory rate, oxygen saturations, blood pressure, adequacy of pulmonary ventilation, and response to care were monitored throughout the procedure. The Colonoscope was introduced through the anus and advanced to 10 cm into the ileum. The colonoscopy was performed without difficulty. The patient tolerated the procedure well. The quality of the bowel preparation was good. Findings: The perianal and digital rectal examinations were normal. A 5 mm polyp was found in the sigmoid colon. The polyp was sessile. The polyp was removed with a cold snare. Resection and retrieval were complete. To prevent bleeding after the polypectomy, one hemostatic clip was successfully placed. Internal hemorrhoids were found during retroflexion. The hemorrhoids were moderate. The exam was otherwise normal throughout the examined colon. The terminal ileum appeared normal. Impression: - One 5 mm polyp in the sigmoid colon, removed with a cold snare. Resected and retrieved. Clip was placed. - Internal hemorrhoids. - The colon is otherwise normal. - The examined portion of the ileum was normal. Recommendation: - Resume Coumadin (warfarin) and Lovenox (enoxaparin) at prior doses today. - Repeat colonoscopy in 5 years for surveillance. - Return to referring physician as previously scheduled. Сергей Fletcher MD Сергей FLETCHER MD 11/28/2019 8:12:31 AM Electronically signed by Сергей FLETCHER MD Number of Addenda: 0 Note Initiated On: 11/28/2019 7:50 AM Estimated Blood Loss: Estimated blood loss: none.
[2019-11-28 08:30] VITALS: BP 156/80
== END 2019-11-28 08:44 | disposition home or self-care (01) ==
LOC: M OPP 06:59
PROVIDERS: ATTEND Internal Medicine Gastroenterology
DX: D12.5 Benign neoplasm of sigmoid colon (principal); K64.8 Other hemorrhoids; K92.1 Melena; J45.909 Unspecified asthma, uncomplicated; Z79.01 Long term (current) use of anticoagulants; Z79.899 Other long term (current) drug therapy

== ENCOUNTER → 2019-12-08 | Outpatient (CLI) | payer OTHER ==
--- NOTE | 2019-12-09 03:42 | REP ---
Clinical: History of alcoholic hepatitis. Technique: Real time raines scale ultrasound examination using curved array transducer. Findings: The liver is hyperechoic and consistent with fatty infiltration. No focal hepatic lesions are identified. Visualized portions of the pancreas are normal. The gallbladder is unremarkable and without gallstones, wall thickening, or pericholecystic fluid. No biliary ductal dilatation is appreciated and the common bile duct measures 3.9 mm diameter. Right kidney is normal in reniform shape without hydronephrosis and measures 11.8 x 4.8 x 4.6 cm. No ascites in the visualized right quadrant. Impression: Hepatic steatosis. No focal hepatic lesion identified. Electronically Signed by Rusty Wang MD 12/09/2019 03:34 A
== END ==
LOC: M RAD 09:00
PROVIDERS: ATTEND Internal Medicine Gastroenterology
DX: K70.10 Alcoholic hepatitis without ascites (principal); K76.0 Fatty (change of) liver, not elsewhere classified

== ENCOUNTER → 2020-07-28 | Outpatient (REF) | payer OTHER ==
[~2020-07-28] MED LIST changes: -COUM7.5T PO; +COUM7.5T6 PO
[2020-07-28 13:56] LABS: HEMATOCRIT 48.3 % (42.0-52.0); HEMOGLOBIN 15.9 g/dl (13.5-17.5); MEAN CORPUSCULAR HEMOGLOBIN 31.5 pg (27.0-33.0); MEAN CORPUSCULAR HGB CONC 32.9 g/dl (32.0-36.5); MEAN CORPUSCULAR VOLUME 95.8 fl (80.0-96.0); PLATELET COUNT, AUTOMATED 157 10^3/uL (150-450); RED BLOOD COUNT 5.04 10^6/uL (4.30-6.10); WHITE BLOOD COUNT 5.3 10^3/uL (4.0-10.0)
[2020-07-28 14:09] LABS: INR 2.58; PROTHROMBIN TIME 28.3 SECONDS (12.5-14.3)
[2020-07-28 14:21] LABS: HEMOGLOBIN A1c 5.4 %
[2020-07-28 14:32] LABS: ALBUMIN 4.3 GM/DL (3.2-5.2); ALT/SGPT 106 U/L (12-78); BILIRUBIN,TOTAL 0.6 MG/DL (0.2-1.0); BLOOD UREA NITROGEN 6 MG/DL (7-18); CALCIUM LEVEL 9.3 MG/DL (8.5-10.1); CARBON DIOXIDE LEVEL 31 MEQ/L (21-32); CHLORIDE LEVEL 104 MEQ/L (98-107); CHOLESTEROL LEVEL 217 MG/DL (<200); CHOLESTEROL RISK RATIO 2.972 (<5); CREATININE FOR GFR 0.98 MG/DL (0.70-1.30); FERRITIN 102 NG/ML (26-388); GLOMERULAR FILTRATION RATE > 60.0 (>60); GLUCOSE, FASTING 91 MG/DL (70-100); HDL CHOLESTEROL 73 MG/DL (>40); IRON (FE) 104 UG/DL (65-175); LDL CHOLESTEROL 127 MG/DL (<100); NON-HDL-C 144 MG/DL; PERCENT SATURATION 25.6 % (19.7-50.0); POTASSIUM SERUM 4.7 MEQ/L (3.5-5.1); SODIUM LEVEL 138 MEQ/L (136-145); TOTAL IRON BINDING CAPACITY 407 UG/DL (250-450); TOTAL PROTEIN 8.3 GM/DL (6.4-8.2); TRIGLYCERIDES LEVEL 87 MG/DL (<150)
== END ==
LOC: M SFHCPLAZ 09:13
PROVIDERS: ATTEND Nurse Practitioner Adult Health
DX: D68.51 Activated protein C resistance (principal); K76.0 Fatty (change of) liver, not elsewhere classified; D64.9 Anemia, unspecified; Z13.220 Encounter for screening for lipoid disorders; I82.409 Acute embolism and thrombosis of unspecified deep veins of unspecified lower extremity; Z13.1 Encounter for screening for diabetes mellitus; Z51.81 Encounter for therapeutic drug level monitoring; Z79.899 Other long term (current) drug therapy

== ENCOUNTER → 2021-02-23 | Outpatient (CLI) | payer OTHER ==
[~2021-02-23] MED LIST changes: +OMEP40CA4 PO; -OMEP40CA97 PO
[2021-02-23 14:00] LABS: INR 1.43; PROTHROMBIN TIME 17.9 SECONDS (12.7-14.5)
== END ==
LOC: M PLALAB 09:19
PROVIDERS: ATTEND Nurse Practitioner Adult Health
DX: Z79.01 Long term (current) use of anticoagulants (principal)

== ENCOUNTER → 2021-06-01 | Outpatient (REF) | payer OTHER | LOC: M SFHCPLAZ 13:01 | PROVIDERS: ATTEND Nurse Practitioner Adult Health | DX: I82.409 Acute embolism and thrombosis of unspecified deep veins of unspecified lower extremity (principal) ==

== ENCOUNTER → 2021-06-21 | Outpatient (CLI) | payer OTHER ==
[2021-06-21 16:46] LABS: INR 1.55
== END ==
LOC: M WUC 14:39
PROVIDERS: ATTEND Nurse Practitioner Adult Health
DX: I82.409 Acute embolism and thrombosis of unspecified deep veins of unspecified lower extremity (principal); Z79.01 Long term (current) use of anticoagulants

== ENCOUNTER → 2021-09-19 | Outpatient (CLI) | payer OTHER ==
[2021-09-19 12:35] LABS: HEMATOCRIT 44.2 % (42.0-52.0); HEMOGLOBIN 14.9 g/dl (13.5-17.5); MEAN CORPUSCULAR HGB CONC 33.7 g/dl (32.0-36.5); MEAN CORPUSCULAR VOLUME 94.8 fl (80.0-96.0); PLATELET COUNT, AUTOMATED 218 10^3/uL (150-450); RED BLOOD COUNT 4.66 10^6/uL (4.30-6.10); WHITE BLOOD COUNT 6.7 10^3/uL (4.0-10.0)
[2021-09-19 14:52] LABS: ALBUMIN 4.4 GM/DL (3.2-5.2); ALT/SGPT 36 U/L (12-78); BILIRUBIN,TOTAL 0.7 MG/DL (0.2-1.0); BLOOD UREA NITROGEN 12 MG/DL (7-18); CALCIUM LEVEL 9.3 MG/DL (8.5-10.1); CARBON DIOXIDE LEVEL 29 MEQ/L (21-32); CHLORIDE LEVEL 104 MEQ/L (98-107); CHOLESTEROL LEVEL 197 MG/DL (<200); CHOLESTEROL RISK RATIO 2.317 (<5); CREATININE FOR GFR 1.01 MG/DL (0.70-1.30); FERRITIN 100 NG/ML (26-388); GLOMERULAR FILTRATION RATE > 60.0 (>60); GLUCOSE, FASTING 81 MG/DL (70-100); HDL CHOLESTEROL 85 MG/DL (>40); IRON (FE) 128 UG/DL (65-175); LDL CHOLESTEROL 99 MG/DL (<100); NON-HDL-C 112 MG/DL; PERCENT SATURATION 30.1 % (19.7-50.0); POTASSIUM SERUM 4.2 MEQ/L (3.5-5.1); SODIUM LEVEL 138 MEQ/L (136-145); TOTAL IRON BINDING CAPACITY 425 UG/DL (250-450); TOTAL PROTEIN 8.3 GM/DL (6.4-8.2); TRIGLYCERIDES LEVEL 67 MG/DL (<150)
[2021-09-19 17:54] LABS: HEMOGLOBIN A1c 5.2 %
== END ==
LOC: M WUC 10:15
PROVIDERS: ATTEND Nurse Practitioner Adult Health
DX: Z13.1 Encounter for screening for diabetes mellitus (principal); D64.9 Anemia, unspecified; Z13.220 Encounter for screening for lipoid disorders

== ENCOUNTER → 2022-07-27 | Outpatient (CLI) | payer OTHER ==
[2022-07-27 11:28] LABS: PROTHROMBIN TIME 61.4 SECONDS (12.5-14.5)
[2022-07-27 12:26] LABS: INR 7.02
== END ==
LOC: M PLALAB 09:05
PROVIDERS: ATTEND Nurse Practitioner Adult Health
DX: I82.409 Acute embolism and thrombosis of unspecified deep veins of unspecified lower extremity (principal)

== ENCOUNTER → 2022-09-05 | Outpatient (CLI) | payer OTHER ==
[2022-09-05 09:42] LABS: HEMATOCRIT 48.6 % (42.0-52.0); HEMOGLOBIN 15.9 g/dl (13.5-17.5); MEAN CORPUSCULAR HEMOGLOBIN 32.3 pg (27.0-33.0); MEAN CORPUSCULAR HGB CONC 32.7 g/dl (32.0-36.5); MEAN CORPUSCULAR VOLUME 98.6 fl (80.0-96.0); PLATELET COUNT, AUTOMATED 241 10^3/uL (150-450); RED BLOOD COUNT 4.93 10^6/uL (4.30-6.10); WHITE BLOOD COUNT 5.5 10^3/uL (4.0-10.0)
[2022-09-05 10:19] LABS: IRON (FE) 69 UG/DL (65-175); TOTAL IRON BINDING CAPACITY 431 UG/DL (250-425)
[2022-09-05 10:22] LABS: ALBUMIN 4.2 G/DL (3.2-5.2); ALKALINE PHOSPHATASE 66 U/L (46-116); ALT/SGPT 109 U/L (7.0-40); AST/SGOT 86 U/L (<34); BILIRUBIN,TOTAL 0.6 MG/DL (0.3-1.2); BLOOD UREA NITROGEN 9 MG/DL (9-23); CALCIUM LEVEL 9.7 MG/DL (8.5-10.1); CARBON DIOXIDE LEVEL 30 MMOL/L (20-31); CHLORIDE LEVEL 104 MMOL/L (98-107); CHOLESTEROL LEVEL 223 MG/DL (<200); CHOLESTEROL RISK RATIO 2.22 (<5); CREATININE FOR GFR 0.81 MG/DL (0.70-1.30); GLOMERULAR FILTRATION RATE > 60.0 (>60); GLUCOSE, FASTING 88 MG/DL (60-100); HDL CHOLESTEROL 100.3 MG/DL (>40); LDL CHOLESTEROL 105.1 MG/DL (<100); NON-HDL-C 123 MG/DL; POTASSIUM SERUM 4.7 MMOL/L (3.5-5.1); SODIUM LEVEL 140 MMOL/L (136-145); TOTAL PROTEIN 8.1 G/DL (5.7-8.2); TRIGLYCERIDES LEVEL 88 MG/DL (<150)
[2022-09-05 10:30] LABS: ETHYL ALCOHOL (ETHANOL) 0.005 % (0.000-0.010)
== END ==
LOC: M WUC 07:49
PROVIDERS: ATTEND Nurse Practitioner Adult Health
DX: K76.0 Fatty (change of) liver, not elsewhere classified (principal); D68.51 Activated protein C resistance; Z51.81 Encounter for therapeutic drug level monitoring; D64.9 Anemia, unspecified; Z13.220 Encounter for screening for lipoid disorders

== ENCOUNTER → 2022-11-15 | Outpatient (REF) | payer OTHER ==
[2022-11-15 11:00] LABS: INR 2.22
== END ==
LOC: M LABWUC 09:25
PROVIDERS: ATTEND Internal Medicine Hematology
DX: I82.409 Acute embolism and thrombosis of unspecified deep veins of unspecified lower extremity (principal)

== ENCOUNTER → 2023-01-08 | Outpatient (REF) | payer OTHER ==
[2023-01-08 11:17] LABS: INR 3.37; PROTHROMBIN TIME 34.6 SECONDS (12.5-14.5)
== END ==
LOC: M SFHCPLAZ 10:00
PROVIDERS: ATTEND Nurse Practitioner Adult Health
DX: I82.409 Acute embolism and thrombosis of unspecified deep veins of unspecified lower extremity (principal)

== ENCOUNTER → 2023-02-06 | Outpatient (REF) | payer OTHER ==
[2023-02-06 10:03] LABS: INR 1.95; PROTHROMBIN TIME 22.6 SECONDS (12.5-14.5)
== END ==
LOC: M LABWUC 09:13
PROVIDERS: ATTEND Nurse Practitioner Adult Health
DX: I82.409 Acute embolism and thrombosis of unspecified deep veins of unspecified lower extremity (principal)

== ENCOUNTER → 2023-06-11 | Outpatient (REF) | payer OTHER ==
[2023-06-11 13:21] LABS: INR 5.08
== END ==
LOC: M LABWUC 12:17
PROVIDERS: ATTEND Nurse Practitioner Adult Health
DX: D68.51 Activated protein C resistance (principal); Z79.01 Long term (current) use of anticoagulants

== ENCOUNTER → 2023-06-20 | Outpatient (REF) | payer OTHER ==
[2023-06-20 19:29] LABS: INR 2.36
== END ==
LOC: M SFHCPLAZ 19:04
PROVIDERS: ATTEND Nurse Practitioner Adult Health
DX: Z79.01 Long term (current) use of anticoagulants (principal); I82.409 Acute embolism and thrombosis of unspecified deep veins of unspecified lower extremity

== ENCOUNTER → 2023-07-10 | Outpatient (REF) | payer OTHER ==
[2023-07-10 12:54] LABS: PROTHROMBIN TIME 44.8 SECONDS (12.5-14.5)
[2023-07-10 13:46] LABS: INR 5.05
== END ==
LOC: M LABWUC 10:02
PROVIDERS: ATTEND Nurse Practitioner Adult Health
DX: Z79.01 Long term (current) use of anticoagulants (principal); I82.409 Acute embolism and thrombosis of unspecified deep veins of unspecified lower extremity

== ENCOUNTER 2023-07-26 13:21 | Emergency (ER) | payer OTHER ==
[~2023-07-26] VITALS: Ht 180.3 cm; Wt 95.0 kg
[~2023-07-26 13:21] MED LIST changes: -OMEP40CA5; -WARF-23 PO
[2023-07-26] MEDS ORDERED: WARF-23 PO (13:28)
[2023-07-26] MEDS ORDERED: OMEP40CA5 (13:28)
[2023-07-26 14:44] LABS: BASO % 0.8 % (0.0-1.0); EOS # 0.1 10^3/uL (0.0-0.5); EOS % 1.6 % (0.0-3.0); HEMOGLOBIN 10.2 g/dl (13.5-17.5); LYMPH # 1.2 10^3/uL (1.5-5.0); LYMPH % 24.5 % (24.0-44.0); MEAN CORPUSCULAR HEMOGLOBIN 23.7 pg (27.0-33.0); MEAN CORPUSCULAR HGB CONC 30.9 g/dl (32.0-36.5); MEAN CORPUSCULAR VOLUME 76.7 fl (80.0-96.0); MONO # 0.7 10^3/uL (0.0-0.8); MONO % 13.5 % (2.0-8.0); NEUTROPHILS # 2.9 10^3/uL (1.5-8.5); NEUTROPHILS % 59.4 % (36.0-66.0); PLATELET COUNT, AUTOMATED 178 10^3/uL (150-450); WHITE BLOOD COUNT 4.9 10^3/uL (4.0-10.0)
[2023-07-26 14:58] LABS: PARTIAL THROMBOPLASTIN TIME 99.8 SECONDS (24.8-34.2)
[2023-07-26 15:12] LABS: RSV AMPLIFICATION NEGATIVE (NEGATIVE)
[2023-07-26 15:31] LABS: PROTHROMBIN TIME 92.9 SECONDS (12.5-14.5)
[2023-07-26 15:34] LABS: INR 13.02
[2023-07-26 16:04] LABS: CK-MB VALUE MASS < 1.0 NG/ML (<3.6)
[2023-07-26 16:10] LABS: ETHYL ALCOHOL (ETHANOL) 0.165 % (0.000-0.010); LIPASE 47 U/L (12-53)
[2023-07-26 16:12] LABS: ALBUMIN 4.2 G/DL (3.2-5.2); ALKALINE PHOSPHATASE 52 U/L (46-116); ALT/SGPT 143 U/L (7.0-40); AST/SGOT 147 U/L (<34); BILIRUBIN,DIRECT 0.1 MG/DL (<0.4); BILIRUBIN,TOTAL 0.4 MG/DL (0.3-1.2); BLOOD UREA NITROGEN 5 MG/DL (9-23); CALCIUM LEVEL 8.9 MG/DL (8.5-10.1); CARBON DIOXIDE LEVEL 25 MMOL/L (20-31); CHLORIDE LEVEL 104 MMOL/L (98-107); CPK CREATINE PHOSPHOKINASE 215 U/L (46-171); CREATININE FOR GFR 0.68 MG/DL (0.70-1.30); GLOMERULAR FILTRATION RATE > 60.0 (>60); GLUCOSE, FASTING 88 MG/DL (60-100); MB/CK RELATIVE INDEX 0.46 (< OR =4); POTASSIUM SERUM 3.8 MMOL/L (3.5-5.1); SODIUM LEVEL 138 MMOL/L (136-145); TOTAL PROTEIN 8.2 G/DL (5.7-8.2)
[2023-07-26] MEDS ORDERED: NS 1,000 ML IV ONE (16:15)
[2023-07-26] MEDS ORDERED: PHYTONADIONE INJection 10 MG in NS 50 ML IV ONE (16:15)
[2023-07-26] MEDS ORDERED: PANTOPRAZOLE 40MG VIAL IV ONE (16:15)
[2023-07-26] MEDS ORDERED: PROTHROMBIN COMPLEX CONCEN 1,000 UNIT in APPROPRIATE DILUENT 40 ML IV ONE (16:50)
[2023-07-26] MEDS ORDERED: ISOVUE-370 76% 100ML VIAL As Ordered ONE (17:02)
[2023-07-26] MEDS ORDERED: DILUENT IV ONE (17:10)
[2023-07-26] MEDS ORDERED: PROTHROMBIN COMPLEX CONCEN IV ONE (17:10)
[2023-07-26] MEDS ORDERED: PANTOPRAZOLE SODIUM 40 MG in D5W 50 ML IV SCH (20:40)
[2023-07-26 22:53] VITALS: BP 154/84; TEMP 98; O2SAT 94
== END 2023-07-26 22:56 | disposition short-term general hospital (02) ==
LOC: M ED 13:21
DX: K92.2 Gastrointestinal hemorrhage, unspecified (principal); R10.9 Unspecified abdominal pain; R79.1 Abnormal coagulation profile; D68.2 Hereditary deficiency of other clotting factors; Z86.711 Personal history of pulmonary embolism; Z79.899 Other long term (current) drug therapy; Z79.01 Long term (current) use of anticoagulants
CPT/HCPCS: 36415; 71045; 74177; 80053; 82077; 82248; 82550; 82553; 83605; 83690; 85025; 85384; 85610; 85730; 86850; 86900; 86901; 87631; 96365; 96366; 96367; 96375; 99284; C9113; J3430; J7168; Q9967

== ENCOUNTER → 2023-07-26 | Outpatient (REF) | payer OTHER ==
[~2023-07-26] MED LIST changes: +OMEP40CA5; +WARF-23 PO
[2023-07-26 10:28] LABS: PROTHROMBIN TIME 96.5 SECONDS (12.5-14.5)
[2023-07-26 12:03] LABS: INR 13.68
== END ==
LOC: M LABWUC 09:28
PROVIDERS: ATTEND Nurse Practitioner Adult Health
DX: Z79.01 Long term (current) use of anticoagulants (principal)

== ENCOUNTER → 2023-08-10 | Outpatient (CLI) | payer OTHER ==
[~2023-08-10] MED LIST changes: +OMEP40CA5; +WARF-23 PO
[2023-08-10 11:06] LABS: HEMATOCRIT 32.1 % (42.0-52.0); HEMOGLOBIN 9.7 g/dl (13.5-17.5); MEAN CORPUSCULAR HEMOGLOBIN 23.8 pg (27.0-33.0); MEAN CORPUSCULAR HGB CONC 30.2 g/dl (32.0-36.5); MEAN CORPUSCULAR VOLUME 78.9 fl (80.0-96.0); PLATELET COUNT, AUTOMATED 357 10^3/uL (150-450); RED BLOOD COUNT 4.07 10^6/uL (4.30-6.10); WHITE BLOOD COUNT 4.1 10^3/uL (4.0-10.0)
[2023-08-10 11:25] LABS: IRON (FE) 17 UG/DL (65-175)
[2023-08-10 11:27] LABS: FERRITIN 19.9 NG/ML (10.5-307.3)
[2023-08-10 11:30] LABS: ALKALINE PHOSPHATASE 51 U/L (46-116); ALT/SGPT 111 U/L (7.0-40); AST/SGOT 79 U/L (<34); BILIRUBIN,TOTAL 0.4 MG/DL (0.3-1.2); BLOOD UREA NITROGEN < 5 MG/DL (9-23); CALCIUM LEVEL 8.9 MG/DL (8.5-10.1); CARBON DIOXIDE LEVEL 28 MMOL/L (20-31); CHLORIDE LEVEL 106 MMOL/L (98-107); CHOLESTEROL LEVEL 216 MG/DL (<200); CHOLESTEROL RISK RATIO 2.53 (<5); CREATININE FOR GFR 0.81 MG/DL (0.70-1.30); GLOMERULAR FILTRATION RATE > 60.0 (>60); GLUCOSE, FASTING 92 MG/DL (60-100); HDL CHOLESTEROL 85.2 MG/DL (>40); LDL CHOLESTEROL 116.4 MG/DL (<100); NON-HDL-C 130.8 MG/DL; POTASSIUM SERUM 4.2 MMOL/L (3.5-5.1); SODIUM LEVEL 142 MMOL/L (136-145); TRIGLYCERIDES LEVEL 72 MG/DL (<150)
== END ==
LOC: M WUC 07:59
PROVIDERS: ATTEND Nurse Practitioner Adult Health
DX: D68.51 Activated protein C resistance (principal); Z51.81 Encounter for therapeutic drug level monitoring; D64.0 Hereditary sideroblastic anemia; K76.0 Fatty (change of) liver, not elsewhere classified; Z13.220 Encounter for screening for lipoid disorders

== ENCOUNTER → 2023-09-17 | Outpatient (REF) | payer OTHER ==
[2023-09-17 16:49] LABS: HEMATOCRIT 35.5 % (42.0-52.0); HEMOGLOBIN 10.6 g/dl (13.5-17.5); MEAN CORPUSCULAR HGB CONC 29.9 g/dl (32.0-36.5); MEAN CORPUSCULAR VOLUME 77.2 fl (80.0-96.0); PLATELET COUNT, AUTOMATED 336 10^3/uL (150-450); WHITE BLOOD COUNT 7.3 10^3/uL (4.0-10.0)
[2023-09-17 17:24] LABS: INR 1.84; PROTHROMBIN TIME 20.6 SECONDS (12.5-14.5)
== END ==
LOC: M LABWUC 16:04
PROVIDERS: ATTEND Nurse Practitioner Adult Health
DX: D68.51 Activated protein C resistance (principal); Z51.81 Encounter for therapeutic drug level monitoring

== ENCOUNTER → 2023-10-08 | Outpatient (REF) | payer OTHER ==
[2023-10-08 10:08] LABS: INR 4.7; PROTHROMBIN TIME 42.4 SECONDS (12.5-14.5)
== END ==
LOC: M LABWUC 09:04
PROVIDERS: ATTEND Nurse Practitioner Adult Health
DX: I82.409 Acute embolism and thrombosis of unspecified deep veins of unspecified lower extremity (principal)

== ENCOUNTER → 2023-10-24 | Outpatient (REF) | payer OTHER ==
[2023-10-24 12:27] LABS: INR 3.95; PROTHROMBIN TIME 37.1 SECONDS (12.5-14.5)
== END ==
LOC: M LABWUC 10:16 → M SFHCPLAZ 10:16
PROVIDERS: ATTEND Nurse Practitioner Adult Health
DX: I82.409 Acute embolism and thrombosis of unspecified deep veins of unspecified lower extremity (principal)

== ENCOUNTER 2024-02-29 20:35 | Inpatient (IN) | payer OTHER ==
[~2024-02-29] VITALS: Ht 180.3 cm; Wt 95.5 kg
[2024-02-29 21:17] LABS: APPEARANCE, URINE CLEAR (CLEAR); BACTERIA, URINE AUTO NEGATIVE (NEGATIVE); BILIRUBIN, URINE AUTO NEGATIVE (NEGATIVE); BLOOD, URINE BLOOD NEGATIVE (NEGATIVE); COLOR, URINE COLORLESS (YELLOW); GLUCOSE, URINE (UA) AUTO NEGATIVE (NEGATIVE); KETONE, URINE AUTO NEGATIVE (NEGATIVE); LEUKOCYTE ESTERASE, URINE AUTO NEGATIVE (NEGATIVE); NITRITE, URINE AUTO NEGATIVE (NEGATIVE); PROTEIN, URINE AUTO NEGATIVE (NEGATIVE); RBC, URINE AUTO 0 /HPF (0-3); SPECIFIC GRAVITY URINE AUTO 1.001 (1.002-1.035); SQUAMOUS EPITHELIAL CELL UR AU 0 /HPF (0-6); UROBILINOGEN, URINE AUTO 0.2 mg/dL (0.0-2.0); WBC, URINE AUTO 0 /HPF (0-3)
[2024-02-29 21:25] LABS: BASO # 0.1 10^3/uL (0.0-0.2); EOS # 0.2 10^3/uL (0.0-0.5); EOS % 2.7 % (0.0-3.0); HEMATOCRIT 39.4 % (42.0-52.0); HEMOGLOBIN 12.7 g/dl (13.5-17.5); LYMPH # 3.3 10^3/uL (1.5-5.0); LYMPH % 46.4 % (24.0-44.0); MEAN CORPUSCULAR HEMOGLOBIN 27.2 pg (27.0-33.0); MEAN CORPUSCULAR HGB CONC 32.2 g/dl (32.0-36.5); MEAN CORPUSCULAR VOLUME 84.4 fl (80.0-96.0); MONO # 0.7 10^3/uL (0.0-0.8); NEUTROPHILS # 2.8 10^3/uL (1.5-8.5); NEUTROPHILS % 39.5 % (36.0-66.0); PLATELET COUNT, AUTOMATED 195 10^3/uL (150-450); RED BLOOD COUNT 4.67 10^6/uL (4.30-6.10); WHITE BLOOD COUNT 7.1 10^3/uL (4.0-10.0)
[2024-02-29 21:41] LABS: PROTHROMBIN TIME 64.3 SECONDS (12.5-14.5)
[2024-02-29 21:49] LABS: CK-MB VALUE MASS < 1.0 NG/ML (<3.6)
[2024-02-29 21:51] LABS: CPK CREATINE PHOSPHOKINASE 177 U/L (46-171); MB/CK RELATIVE INDEX 0.56 (< OR =4)
[2024-02-29 21:55] LABS: INR 8.07
[2024-02-29 22:05] LABS: ALBUMIN 4.2 G/DL (3.2-5.2); ALKALINE PHOSPHATASE 65 U/L (46-116); ALT/SGPT 186 U/L (7.0-40); AST/SGOT 174 U/L (<34); BILIRUBIN,DIRECT 0.2 MG/DL (<0.4); BILIRUBIN,TOTAL 0.4 MG/DL (0.3-1.2); BLOOD UREA NITROGEN < 5 MG/DL (9-23); CALCIUM LEVEL 9.4 MG/DL (8.5-10.1); CARBON DIOXIDE LEVEL 28 MMOL/L (20-31); CHLORIDE LEVEL 103 MMOL/L (98-107); CREATININE FOR GFR 0.77 MG/DL (0.70-1.30); GLOMERULAR FILTRATION RATE > 60.0 (>60); GLUCOSE, FASTING 103 MG/DL (60-100); SODIUM LEVEL 139 MMOL/L (136-145); TOTAL PROTEIN 8.4 G/DL (5.7-8.2)
[2024-02-29] MEDS: PHYTONADIONE 5 MG TAB PO ONE (23:36)
[2024-02-29] MEDS ORDERED: ISOVUE-370 76% 100ML VIAL As Ordered ONE (23:40)
[2024-02-29 23:48] LABS: CK-MB VALUE MASS < 1.0 NG/ML (<3.6)
[2024-02-29] MEDS ORDERED: WARF-23 PO (23:49)
[2024-02-29] MEDS ORDERED: HOME MED LIST COMPLETE! XX SCH (23:50)
[2024-03-01] VITALS (11 sets, daily range): BP systolic 122–153; BP diastolic 67–83; TEMP 97.6–98.9; O2SAT 93–95
[2024-03-01 00:07] LABS: ETHYL ALCOHOL (ETHANOL) 0.296 % (0.000-0.010)
[2024-03-01 00:12] LABS: CPK CREATINE PHOSPHOKINASE 159 U/L (46-171); MB/CK RELATIVE INDEX 0.62 (< OR =4)
[2024-03-01] MEDS ORDERED: MOM 30ML SUSPENSION UDC PO PRN (02:30)
[2024-03-01] MEDS ORDERED: ACETAMINOPHEN TAB 650MG DOSE (2X325MG) PO PRN (02:30)
[2024-03-01 06:06] LABS: HEMATOCRIT 35.9 % (42.0-52.0); HEMOGLOBIN 11.6 g/dl (13.5-17.5); MEAN CORPUSCULAR HEMOGLOBIN 27.3 pg (27.0-33.0); MEAN CORPUSCULAR HGB CONC 32.3 g/dl (32.0-36.5); MEAN CORPUSCULAR VOLUME 84.5 fl (80.0-96.0); PLATELET COUNT, AUTOMATED 162 10^3/uL (150-450); RED BLOOD COUNT 4.25 10^6/uL (4.30-6.10); WHITE BLOOD COUNT 6.3 10^3/uL (4.0-10.0)
[2024-03-01 06:22] LABS: PROTHROMBIN TIME 72.5 SECONDS (12.5-14.5)
[2024-03-01 06:44] LABS: INR 9.44
[2024-03-01] MEDS ORDERED: PHYTONADIONE 1MG/0.5ML SYRINGE IV ONE (08:00)
[2024-03-01] MEDS: ADVAIR HFA 230/21MCG INHALER INH SCH (08:00)
[2024-03-01] MEDS ORDERED: D5W IV ONE (09:00)
[2024-03-01] MEDS ORDERED: PHYTONADIONE IV ONE (09:00)
[2024-03-01] MEDS: PANTOPRAZOLE 40MG VIAL IV SCH ×2 (09:30→21:01)
[2024-03-01] MEDS: PHYTONADIONE 5 MG TAB PO ONE (10:21)
[2024-03-01 11:25] LABS: FERRITIN 61.8 NG/ML (10.5-307.3); FOLATE 17.34 NG/ML (>5.4)
[2024-03-01 11:29] LABS: IRON (FE) 75 UG/DL (65-175); PERCENT SATURATION 15.8 % (19.7-50.0); TOTAL IRON BINDING CAPACITY 474 UG/DL (250-425)
[2024-03-01 11:32] LABS: VITAMIN B12 LEVEL 547 PG/ML (211-911)
[2024-03-01] MEDS: LR 1,000 ML IV SCH (11:41)
[2024-03-01 12:16] LABS: HEMATOCRIT 34.9 % (42.0-52.0); HEMOGLOBIN 11.4 g/dl (13.5-17.5); MEAN CORPUSCULAR HEMOGLOBIN 27.4 pg (27.0-33.0); MEAN CORPUSCULAR HGB CONC 32.7 g/dl (32.0-36.5); MEAN CORPUSCULAR VOLUME 83.9 fl (80.0-96.0); PLATELET COUNT, AUTOMATED 156 10^3/uL (150-450); RED BLOOD COUNT 4.16 10^6/uL (4.30-6.10); WHITE BLOOD COUNT 5.9 10^3/uL (4.0-10.0)
[2024-03-01 13:52] LABS: INR 4.42; PROTHROMBIN TIME 40.4 SECONDS (12.5-14.5)
[2024-03-01] MEDS: FERRIC CARBOXYMALTOSE INJ 750 MG, VIAL MATE ADAPTER 1 EACH in NS 250 ML IV ONE (17:30)
[2024-03-01 18:23] LABS: HEMOGLOBIN 11.1 g/dl (13.5-17.5); MEAN CORPUSCULAR HEMOGLOBIN 27.5 pg (27.0-33.0); MEAN CORPUSCULAR HGB CONC 32.6 g/dl (32.0-36.5); MEAN CORPUSCULAR VOLUME 84.4 fl (80.0-96.0); PLATELET COUNT, AUTOMATED 144 10^3/uL (150-450); RED BLOOD COUNT 4.03 10^6/uL (4.30-6.10); WHITE BLOOD COUNT 5.4 10^3/uL (4.0-10.0)
[2024-03-02 00:01] LABS: HEMATOCRIT 34.1 % (42.0-52.0); MEAN CORPUSCULAR HEMOGLOBIN 27.2 pg (27.0-33.0); MEAN CORPUSCULAR HGB CONC 32.3 g/dl (32.0-36.5); MEAN CORPUSCULAR VOLUME 84.4 fl (80.0-96.0); PLATELET COUNT, AUTOMATED 144 10^3/uL (150-450); RED BLOOD COUNT 4.04 10^6/uL (4.30-6.10); WHITE BLOOD COUNT 4.6 10^3/uL (4.0-10.0)
[2024-03-02 03:33] VITALS: BP 147/82; TEMP 97.3; O2SAT 93
[2024-03-02 04:46] LABS: HEMATOCRIT 33.4 % (42.0-52.0); MEAN CORPUSCULAR HEMOGLOBIN 27.8 pg (27.0-33.0); MEAN CORPUSCULAR HGB CONC 32.9 g/dl (32.0-36.5); MEAN CORPUSCULAR VOLUME 84.6 fl (80.0-96.0); PLATELET COUNT, AUTOMATED 139 10^3/uL (150-450); RED BLOOD COUNT 3.95 10^6/uL (4.30-6.10)
[2024-03-02 05:06] LABS: INR 2.12
[2024-03-02 05:19] LABS: ALBUMIN 3.3 G/DL (3.2-5.2); ALKALINE PHOSPHATASE 54 U/L (46-116); ALT/SGPT 110 U/L (7.0-40); AST/SGOT 69 U/L (<34); BILIRUBIN,TOTAL 1.6 MG/DL (0.3-1.2); BLOOD UREA NITROGEN 6 MG/DL (9-23); CALCIUM LEVEL 8.7 MG/DL (8.5-10.1); CARBON DIOXIDE LEVEL 28 MMOL/L (20-31); CHLORIDE LEVEL 103 MMOL/L (98-107); CREATININE FOR GFR 0.74 MG/DL (0.70-1.30); GLOMERULAR FILTRATION RATE > 60.0 (>60); GLUCOSE, FASTING 98 MG/DL (60-100); POTASSIUM SERUM 3.7 MMOL/L (3.5-5.1); SODIUM LEVEL 135 MMOL/L (136-145); TOTAL PROTEIN 6.6 G/DL (5.7-8.2)
[2024-03-02 07:57] VITALS: BP 152/77; TEMP 98.2
[2024-03-02 11:58] VITALS: BP 154/87; TEMP 98.3; O2SAT 96
[2024-03-02 12:36] LABS: HEMATOCRIT 33.8 % (42.0-52.0); HEMOGLOBIN 11.1 g/dl (13.5-17.5); MEAN CORPUSCULAR HEMOGLOBIN 27.7 pg (27.0-33.0); MEAN CORPUSCULAR HGB CONC 32.8 g/dl (32.0-36.5); MEAN CORPUSCULAR VOLUME 84.3 fl (80.0-96.0); PLATELET COUNT, AUTOMATED 136 10^3/uL (150-450); RED BLOOD COUNT 4.01 10^6/uL (4.30-6.10); WHITE BLOOD COUNT 5.1 10^3/uL (4.0-10.0)
[2024-03-02 15:54] VITALS: BP 148/85; TEMP 98.9; O2SAT 91
[2024-03-02 20:28] VITALS: BP 155/85; TEMP 98.6; O2SAT 94
[2024-03-03] VITALS: BP 158/88; TEMP 98.8; O2SAT 96
[2024-03-03 04:00] VITALS: BP 150/82; TEMP 98.3; O2SAT 95
[2024-03-03 05:54] LABS: INR 1.41; PROTHROMBIN TIME 16.8 SECONDS (12.5-14.5)
[2024-03-03 07:59] LABS: HEMATOCRIT 34.8 % (42.0-52.0); HEMOGLOBIN 11.1 g/dl (13.5-17.5); MEAN CORPUSCULAR HEMOGLOBIN 27.4 pg (27.0-33.0); MEAN CORPUSCULAR HGB CONC 31.9 g/dl (32.0-36.5); MEAN CORPUSCULAR VOLUME 85.9 fl (80.0-96.0); PLATELET COUNT, AUTOMATED 148 10^3/uL (150-450); RED BLOOD COUNT 4.05 10^6/uL (4.30-6.10); WHITE BLOOD COUNT 3.7 10^3/uL (4.0-10.0)
[2024-03-03 08:00] VITALS: BP 156/90; TEMP 98.6; O2SAT 94
[2024-03-03 08:00] LABS: BLOOD UREA NITROGEN < 5 MG/DL (9-23); CALCIUM LEVEL 8.8 MG/DL (8.5-10.1); CARBON DIOXIDE LEVEL 28 MMOL/L (20-31); CHLORIDE LEVEL 104 MMOL/L (98-107); CREATININE FOR GFR 0.73 MG/DL (0.70-1.30); GLOMERULAR FILTRATION RATE > 60.0 (>60); GLUCOSE, FASTING 102 MG/DL (60-100); POTASSIUM SERUM 3.7 MMOL/L (3.5-5.1); SODIUM LEVEL 136 MMOL/L (136-145)
[2024-03-03] MEDS ORDERED: propofoL 200 MG/20 ML VIAL As Ordered ONE (08:46)
[2024-03-03] MEDS ORDERED: LIDOCAINE 2% 100MG/5ML SDV (FOR ANES.) As Ordered ONE (08:47)
[2024-03-03] MEDS ORDERED: MIDAZOLAM INJ 2MG/2ML VIAL As Ordered ONE (08:50)
[2024-03-03] MEDS ORDERED: fentaNYL 100 MCG/2 ML INJECTION As Ordered ONE (08:51)
[2024-03-03] MEDS ORDERED: OMEP40CA5 PO (11:39)
[2024-03-03 11:56] VITALS: BP 143/87; TEMP 97.8; O2SAT 98
== END 2024-03-03 12:48 | disposition home or self-care (01) | DRG 661 ==
LOC: M ED 20:35 → M ED INP 03-01 02:28 → M PCU 03-01 14:44
PROVIDERS: ADMIT Internal Medicine; ATTEND Student in an Organized Health Care Education/Training Program
PROC: 0DJ08ZZ Inspection of Upper Intestinal Tract, Via Natural or Artificial Opening Endoscopic (ICD-10-PCS; principal; 2024-03-03 09:00)
DX: D68.32 Hemorrhagic disorder due to extrinsic circulating anticoagulants (principal); D68.2 Hereditary deficiency of other clotting factors; D62 Acute posthemorrhagic anemia; K21.9 Gastro-esophageal reflux disease without esophagitis; F10.20 Alcohol dependence, uncomplicated; J45.909 Unspecified asthma, uncomplicated; R07.89 Other chest pain; T45.515A Adverse effect of anticoagulants, initial encounter; Z79.01 Long term (current) use of anticoagulants; Z79.899 Other long term (current) drug therapy; Z95.828 Presence of other vascular implants and grafts

== ENCOUNTER → 2024-02-29 | Outpatient (CLI) | payer OTHER ==
[~2024-02-29] MED LIST changes: -OMEP40CA5; +OMEP40CA5 PO
[2024-02-29 13:00] LABS: HEMATOCRIT 39.1 % (42.0-52.0); HEMOGLOBIN 12.4 g/dl (13.5-17.5); MEAN CORPUSCULAR HEMOGLOBIN 26.7 pg (27.0-33.0); MEAN CORPUSCULAR HGB CONC 31.7 g/dl (32.0-36.5); MEAN CORPUSCULAR VOLUME 84.3 fl (80.0-96.0); PLATELET COUNT, AUTOMATED 181 10^3/uL (150-450); RED BLOOD COUNT 4.64 10^6/uL (4.30-6.10); WHITE BLOOD COUNT 5.5 10^3/uL (4.0-10.0)
[2024-02-29 13:16] LABS: HEMOGLOBIN A1c 5.8 % (4.0-6.0)
[2024-02-29 13:27] LABS: ALBUMIN 4.3 G/DL (3.2-5.2); ALKALINE PHOSPHATASE 65 U/L (46-116); ALT/SGPT 194 U/L (7.0-40); AST/SGOT 225 U/L (<34); BILIRUBIN,TOTAL 0.6 MG/DL (0.3-1.2); BLOOD UREA NITROGEN 6 MG/DL (9-23); CALCIUM LEVEL 9.3 MG/DL (8.5-10.1); CARBON DIOXIDE LEVEL 28 MMOL/L (20-31); CHLORIDE LEVEL 101 MMOL/L (98-107); CHOLESTEROL LEVEL 222 MG/DL (<200); CHOLESTEROL RISK RATIO 2.56 (<5); CREATININE FOR GFR 0.81 MG/DL (0.70-1.30); GLOMERULAR FILTRATION RATE > 60.0 (>60); GLUCOSE, FASTING 87 MG/DL (60-100); HDL CHOLESTEROL 86.5 MG/DL (>40); IRON (FE) 239 UG/DL (65-175); LDL CHOLESTEROL 115.5 MG/DL (<100); NON-HDL-C 135.5 MG/DL; POTASSIUM SERUM 4.6 MMOL/L (3.5-5.1); SODIUM LEVEL 135 MMOL/L (136-145); TOTAL IRON BINDING CAPACITY 469 UG/DL (250-425); TOTAL PROTEIN 8.1 G/DL (5.7-8.2); TRIGLYCERIDES LEVEL 100 MG/DL (<150)
== END ==
LOC: M PLALAB 08:55
PROVIDERS: ATTEND Nurse Practitioner Adult Health
DX: D64.9 Anemia, unspecified (principal); Z13.220 Encounter for screening for lipoid disorders; Z13.1 Encounter for screening for diabetes mellitus; D68.51 Activated protein C resistance; Z51.81 Encounter for therapeutic drug level monitoring; K76.0 Fatty (change of) liver, not elsewhere classified

== ENCOUNTER 2024-05-29 13:06 | Observation (INO) | payer MEDICAID, OTHER ==
[~2024-05-29] VITALS: Ht 180.3 cm; Wt 93.2 kg
[2024-05-29] MEDS ORDERED: WARF-23 PO ×2 (13:19→17:31)
[2024-05-29 14:25] LABS: INR 2.79; PARTIAL THROMBOPLASTIN TIME 52.9 SECONDS (24.8-34.2); PROTHROMBIN TIME 29.4 SECONDS (12.5-14.5)
[2024-05-29 14:27] LABS: BASO % 0.6 % (0.0-1.0); EOS # 0.2 10^3/uL (0.0-0.5); EOS % 2.3 % (0.0-3.0); HEMATOCRIT 41.9 % (42.0-52.0); HEMOGLOBIN 14.1 g/dl (13.5-17.5); LYMPH % 29.7 % (24.0-44.0); MEAN CORPUSCULAR HEMOGLOBIN 31.4 pg (27.0-33.0); MEAN CORPUSCULAR HGB CONC 33.7 g/dl (32.0-36.5); MEAN CORPUSCULAR VOLUME 93.3 fl (80.0-96.0); MONO # 0.9 10^3/uL (0.0-0.8); MONO % 13.6 % (2.0-8.0); NEUTROPHILS # 3.5 10^3/uL (1.5-8.5); NEUTROPHILS % 53.5 % (36.0-66.0); PLATELET COUNT, AUTOMATED 149 10^3/uL (150-450); RED BLOOD COUNT 4.49 10^6/uL (4.30-6.10); WHITE BLOOD COUNT 6.6 10^3/uL (4.0-10.0)
[2024-05-29 14:34] LABS: LIPASE 40 U/L (12-53)
[2024-05-29 14:36] LABS: ALBUMIN 3.7 G/DL (3.2-5.2); ALKALINE PHOSPHATASE 65 U/L (40-129); ALT/SGPT 212 U/L (7.0-40); AST/SGOT 154 U/L (<34); BILIRUBIN,DIRECT 0.2 MG/DL (<0.4); BILIRUBIN,TOTAL 0.5 MG/DL (0.3-1.2); BLOOD UREA NITROGEN 8 MG/DL (9-23); CALCIUM LEVEL 9.4 MG/DL (8.5-10.1); CARBON DIOXIDE LEVEL 29 MMOL/L (20-31); CHLORIDE LEVEL 104 MMOL/L (98-107); CREATININE FOR GFR 0.69 MG/DL (0.70-1.30); GLOMERULAR FILTRATION RATE > 60.0 (>60); GLUCOSE, FASTING 81 MG/DL (60-100); POTASSIUM SERUM 3.6 MMOL/L (3.5-5.1); SODIUM LEVEL 138 MMOL/L (136-145)
[2024-05-29] MEDS ORDERED: ISOVUE-370 76% 100ML VIAL As Ordered ONE (15:16)
[2024-05-29] MEDS: PANTOPRAZOLE 40MG VIAL IV ONE (16:55)
[2024-05-29] MEDS ORDERED: LORazepam 2 MG TAB PO PRN (17:05)
[2024-05-29] MEDS ORDERED: FERR324T21 PO (17:31)
[2024-05-29] MEDS ORDERED: HOME MED LIST COMPLETE! XX SCH (17:35)
[2024-05-29 17:55] VITALS: BP 125/75; TEMP 98; O2SAT 95
[2024-05-29] MEDS: MULTIVITAMINS/MINERALS THERAP 1 TAB PO SCH (17:57)
[2024-05-29] MEDS: THIAMINE 100 MG TAB PO SCH (17:57)
[2024-05-29] MEDS: FOLIC ACID 1MG TAB PO SCH (17:57)
[2024-05-29 19:53] VITALS: BP 139/79; TEMP 98.4; O2SAT 93
[2024-05-29 23:29] VITALS: BP 144/86; TEMP 98.4; O2SAT 94
[2024-05-30] VITALS (10 sets, daily range): BP systolic 122–156; BP diastolic 59–95; TEMP 97.9–99; O2SAT 92–98
[2024-05-30 05:50] LABS: HEMATOCRIT 41.1 % (42.0-52.0); MEAN CORPUSCULAR HEMOGLOBIN 31.5 pg (27.0-33.0); MEAN CORPUSCULAR HGB CONC 34.1 g/dl (32.0-36.5); MEAN CORPUSCULAR VOLUME 92.4 fl (80.0-96.0); PLATELET COUNT, AUTOMATED 137 10^3/uL (150-450); RED BLOOD COUNT 4.45 10^6/uL (4.30-6.10); WHITE BLOOD COUNT 4.3 10^3/uL (4.0-10.0)
[2024-05-30 06:04] LABS: INR 2.21; PROTHROMBIN TIME 24.7 SECONDS (12.5-14.5)
[2024-05-30 06:06] LABS: BLOOD UREA NITROGEN 9 MG/DL (9-23); CARBON DIOXIDE LEVEL 27 MMOL/L (20-31); CHLORIDE LEVEL 106 MMOL/L (98-107); CREATININE FOR GFR 0.73 MG/DL (0.70-1.30); GLOMERULAR FILTRATION RATE > 60.0 (>60); GLUCOSE, FASTING 101 MG/DL (60-100); POTASSIUM SERUM 4.1 MMOL/L (3.5-5.1); SODIUM LEVEL 139 MMOL/L (136-145)
[2024-05-30] MEDS ORDERED: NS 1,000 ML IV SCH ×2 (07:50→09:35)
[2024-05-30] MEDS ORDERED: MIDAZOLAM INJ 2MG/2ML VIAL As Ordered ONE (08:03)
[2024-05-30] MEDS ORDERED: ISOVUE-300 61% 100ML VIAL As Ordered ONE (08:03)
[2024-05-30] MEDS ORDERED: LIDOCAINE 1% MDV 20ML VIAL As Ordered ONE (08:03)
[2024-05-30] MEDS ORDERED: fentaNYL 100 MCG/2 ML INJECTION As Ordered ONE (08:03)
[2024-05-30] MEDS ORDERED: cefTRIAXone SOD 1GM VIAL As Ordered ONE (08:55)
[2024-05-30] MEDS: cefTRIAXone SOD 1 GM in DEXTROSE 5% (D5W) ADV/MINI-BAG 50 ML IV ONE (09:45)
[2024-05-30] MEDS: PANTOPRAZOLE 40MG VIAL IV SCH (11:06)
[2024-05-30] MEDS ORDERED: WARF-23 PO ×2 (14:32)
== END 2024-05-30 14:42 | disposition home or self-care (01) ==
LOC: M ED 13:06 → M ED INP 13:07 → M PCU 17:51
PROVIDERS: ADMIT Internal Medicine; ATTEND Internal Medicine
DX: T82.515A Breakdown (mechanical) of umbrella device, initial encounter (principal); Y78.2 Prosthetic and other implants, materials and accessory radiological devices associated with adverse incidents; K57.01 Diverticulitis of small intestine with perforation and abscess with bleeding; K29.81 Duodenitis with bleeding; Z45.89 Encounter for adjustment and management of other implanted devices; D68.2 Hereditary deficiency of other clotting factors; Z86.718 Personal history of other venous thrombosis and embolism; R10.9 Unspecified abdominal pain; F10.20 Alcohol dependence, uncomplicated; K21.9 Gastro-esophageal reflux disease without esophagitis; Z79.899 Other long term (current) drug therapy; Z79.01 Long term (current) use of anticoagulants
CPT/HCPCS: 36415; 37193; 71045; 74177; 80048; 80053; 82248; 83690; 85025; 85027; 85384; 85610; 85730; 86850; 86900; 86901; 96374; 96376; 99152; 99153; 99285; C1887; C1894; J0696; J2250; J2470; J3010; Q9967

== ENCOUNTER → 2024-06-16 | Outpatient (REF) | payer OTHER ==
[~2024-06-16] MED LIST changes: +FERR324T21 PO
[2024-06-16 16:37] LABS: BASO % 0.6 % (0.0-1.0); EOS # 0.1 10^3/uL (0.0-0.5); EOS % 1.5 % (0.0-3.0); HEMATOCRIT 41.6 % (42.0-52.0); HEMOGLOBIN 13.6 g/dl (13.5-17.5); LYMPH # 1.8 10^3/uL (1.5-5.0); LYMPH % 38.4 % (24.0-44.0); MEAN CORPUSCULAR HEMOGLOBIN 30.8 pg (27.0-33.0); MEAN CORPUSCULAR HGB CONC 32.7 g/dl (32.0-36.5); MEAN CORPUSCULAR VOLUME 94.1 fl (80.0-96.0); MONO # 0.5 10^3/uL (0.0-0.8); MONO % 9.9 % (2.0-8.0); NEUTROPHILS # 2.3 10^3/uL (1.5-8.5); NEUTROPHILS % 49.4 % (36.0-66.0); PLATELET COUNT, AUTOMATED 216 10^3/uL (150-450); RED BLOOD COUNT 4.42 10^6/uL (4.30-6.10); WHITE BLOOD COUNT 4.6 10^3/uL (4.0-10.0)
[2024-06-16 16:41] LABS: ALKALINE PHOSPHATASE 64 U/L (40-129); ALT/SGPT 226 U/L (7.0-40); AST/SGOT 166 U/L (<34); BILIRUBIN,DIRECT 0.2 MG/DL (<0.4); BILIRUBIN,TOTAL 0.5 MG/DL (0.3-1.2); CHOLESTEROL LEVEL 256 MG/DL (<200); CHOLESTEROL RISK RATIO 2.84 (<5); HDL CHOLESTEROL 90.1 MG/DL (>40); INR 1.13; LDL CHOLESTEROL 144.3 MG/DL (<100); NON-HDL-C 165.9 MG/DL; PROTHROMBIN TIME 14.8 SECONDS (12.5-14.5); TOTAL IRON BINDING CAPACITY 458 UG/DL (250-425); TOTAL PROTEIN 8.6 G/DL (5.7-8.2); TRIGLYCERIDES LEVEL 108 MG/DL (<150)
[2024-06-16 16:42] LABS: FERRITIN 52.5 NG/ML (10.5-307.3); IRON (FE) 31 UG/DL (65-175); PERCENT SATURATION 6.8 % (19.7-50.0); THYROID STIMULATING HORMONE 0.848 uIU/ML (0.55-4.78)
[2024-06-16 16:43] LABS: TOTAL 25(OH) VITAMIN D 14.6 NG/ML (20.0-100.0)
[2024-06-16 16:44] LABS: VITAMIN B12 LEVEL 467 PG/ML (211-911)
[2024-06-16 17:02] LABS: HEMOGLOBIN A1c 5.8 % (4.0-6.0)
[2024-06-16 18:14] LABS: FOLATE 15.5 NG/ML (>5.4)
== END ==
LOC: M LAB REF 16:12
PROVIDERS: ATTEND Nurse Practitioner Family
DX: F10.90 Alcohol use, unspecified, uncomplicated (principal); Z79.01 Long term (current) use of anticoagulants; E55.9 Vitamin D deficiency, unspecified; Z11.9 Encounter for screening for infectious and parasitic diseases, unspecified; E61.1 Iron deficiency

== ENCOUNTER → 2024-07-11 | Outpatient (CLI) | payer OTHER | LOC: M WUC 11:58 | PROVIDERS: ATTEND Nurse Practitioner Family | DX: M25.562 Pain in left knee (principal) ==

== ENCOUNTER → 2024-07-25 | Outpatient (CLI) | payer OTHER | LOC: M WHC 11:21 | PROVIDERS: ATTEND Nurse Practitioner Family | DX: M79.662 Pain in left lower leg (principal) ==

== ENCOUNTER → 2024-08-15 | Outpatient (CLI) | payer OTHER | LOC: M PLAIMG 12:46 | PROVIDERS: ATTEND Nurse Practitioner Family | DX: M25.562 Pain in left knee (principal); S83.412A Sprain of medial collateral ligament of left knee, initial encounter; M79.89 Other specified soft tissue disorders ==

== ENCOUNTER → 2024-08-15 | Outpatient (CLI) | payer OTHER ==
[2024-08-15 10:55] LABS: BASO # 0.1 10^3/uL (0.0-0.2); EOS # 0.1 10^3/uL (0.0-0.5); EOS % 2.1 % (0.0-3.0); HEMATOCRIT 43.4 % (42.0-52.0); HEMOGLOBIN 14.1 g/dl (13.5-17.5); LYMPH # 1.5 10^3/uL (1.5-5.0); LYMPH % 31.2 % (24.0-44.0); MEAN CORPUSCULAR HEMOGLOBIN 29.9 pg (27.0-33.0); MEAN CORPUSCULAR HGB CONC 32.5 g/dl (32.0-36.5); MEAN CORPUSCULAR VOLUME 91.9 fl (80.0-96.0); MONO # 0.6 10^3/uL (0.0-0.8); MONO % 11.5 % (2.0-8.0); NEUTROPHILS # 2.6 10^3/uL (1.5-8.5); PLATELET COUNT, AUTOMATED 230 10^3/uL (150-450); RED BLOOD COUNT 4.72 10^6/uL (4.30-6.10); WHITE BLOOD COUNT 4.8 10^3/uL (4.0-10.0)
[2024-08-15 11:00] LABS: ERYTHROCYTE SEDIMENTATION RATE 31 mm/hr (0-15)
[2024-08-15 11:28] LABS: URIC ACID 5.9 MG/DL (3.7-9.2)
[2024-08-15 11:30] LABS: C REACTIVE PROTEIN QUANTITATIV 1.28 MG/DL (<1.0)
[2024-08-15 11:31] LABS: ALBUMIN 3.9 G/DL (3.2-5.2); ALKALINE PHOSPHATASE 66 U/L (40-129); ALT/SGPT 386 U/L (7.0-40); AST/SGOT 343 U/L (<34); BILIRUBIN,DIRECT 0.4 MG/DL (<0.4); TOTAL PROTEIN 8.5 G/DL (5.7-8.2)
[2024-08-15 11:38] LABS: HEPATITIS B SURFACE ANTIBODY NEGATIVE (POSITIVE)
[2024-08-15 11:50] LABS: HEPATITIS B SURFACE ANTIGEN NEGATIVE (NEGATIVE)
[2024-08-15 12:11] LABS: HEPATITIS B CORE ANTIBODY IGM NEGATIVE (NEGATIVE)
== END ==
LOC: M WUC 08:40
PROVIDERS: ATTEND Nurse Practitioner Family
DX: R94.5 Abnormal results of liver function studies (principal); M25.469 Effusion, unspecified knee

== ENCOUNTER → 2024-12-10 | Outpatient (REF) | payer OTHER ==
[2024-12-10 12:39] LABS: PSA SCREENING 1.57 NG/ML (< 4.00)
[2024-12-10 12:42] LABS: PERCENT SATURATION 7.8 % (19.7-50.0)
== END ==
LOC: M LABWUC 12:00 → M LAB REF 12:00
PROVIDERS: ATTEND Nurse Practitioner Family
DX: E61.1 Iron deficiency (principal); Z12.5 Encounter for screening for malignant neoplasm of prostate

== ENCOUNTER → 2025-02-18 | Outpatient (REF) | payer OTHER ==
[2025-02-18 13:03] LABS: ALT/SGPT 278 U/L (7.0-40); AST/SGOT 237 U/L (<34); CALCIUM LEVEL 9.8 MG/DL (8.5-10.1); CARBON DIOXIDE LEVEL 27 MMOL/L (20-31); CHLORIDE LEVEL 102 MMOL/L (98-107); CREATININE FOR GFR 0.76 MG/DL (0.70-1.30); GLOMERULAR FILTRATION RATE > 90.0 (>60); POTASSIUM SERUM 4.3 MMOL/L (3.5-5.1); SODIUM LEVEL 139 MMOL/L (136-145)
== END ==
LOC: M LABWUC 12:30 → M LAB REF 12:30
PROVIDERS: ATTEND Nurse Practitioner Family
DX: R94.5 Abnormal results of liver function studies (principal)

== ENCOUNTER → 2025-07-01 | Outpatient (REF) | payer OTHER ==
[2025-07-01 13:01] LABS: ALT/SGPT 192 U/L (7.0-40); AST/SGOT 240 U/L (<34); CALCIUM LEVEL 9.7 MG/DL (8.5-10.1); CARBON DIOXIDE LEVEL 28 MMOL/L (20-31); CHLORIDE LEVEL 97 MMOL/L (98-107); CREATININE FOR GFR 0.81 MG/DL (0.70-1.30); GLOMERULAR FILTRATION RATE > 90.0 (>60); POTASSIUM SERUM 4.2 MMOL/L (3.5-5.1); SODIUM LEVEL 138 MMOL/L (136-145)
== END ==
LOC: M LABWUC 11:47
PROVIDERS: ATTEND Nurse Practitioner Family
DX: K74.00 Hepatic fibrosis, unspecified (principal)

== ENCOUNTER → 2025-07-02 | Outpatient (REF) | payer OTHER ==
[2025-07-02 12:42] LABS: INR 1.27
== END ==
LOC: M LAB REF 12:12
PROVIDERS: ATTEND Nurse Practitioner Family
DX: K74.00 Hepatic fibrosis, unspecified (principal)

== ENCOUNTER → 2025-07-10 | Outpatient (REF) | payer OTHER ==
[2025-07-10 13:22] LABS: IRON (FE) 15.0 UG/DL (65-175)
[2025-07-10 13:23] LABS: PERCENT SATURATION 3.3 % (19.7-50.0)
[2025-07-10 13:27] LABS: BASO # 0.1 10^3/uL (0.0-0.2); BASO % 0.9 % (0.0-1.0); EOS # 0.2 10^3/uL (0.0-0.5); EOS % 2.3 % (0.0-3.0); LYMPH # 1.8 10^3/uL (1.5-5.0); LYMPH % 26.9 % (24.0-44.0); MONO # 1.0 10^3/uL (0.0-0.8); MONO % 14.4 % (2.0-8.0); NEUTROPHILS # 3.7 10^3/uL (1.5-8.5); NEUTROPHILS % 55.2 % (36.0-66.0); PLATELET COUNT, AUTOMATED 213 10^3/uL (150-450)
== END ==
LOC: M LABWUC 12:10
PROVIDERS: ATTEND Nurse Practitioner Family
DX: R77.2 Abnormality of alphafetoprotein (principal); K74.00 Hepatic fibrosis, unspecified; R79.89 Other specified abnormal findings of blood chemistry; E61.1 Iron deficiency